=== PATIENT | male | born 1960 | race Caucasian/White ===

== ENCOUNTER 2017-08-25 14:14 | Inpatient (IN) ==
[2017-08-25 14:51] LABS: Bilirubin,Urine Small (Negative); Blood,Urine Negative (Negative); Clarity,Urine Cloudy (Clear); Color,Urine Dark Yellow (Yellow); Glucose,Urine (UA) Normal (Normal); Ketones,Urine Negative (Negative); Leukocyte Esterase,Urine Negative (Negative); Nitrite,Urine Negative (Negative); PH,Urine 5.5 pH Units (5.0-8.0); Protein,Urine 30 mg/dL (Neg-Trace); Specific Gravity,Urine 1.029 (1.010-1.025); Urobilinogen,Urine Normal (Normal)
[2017-08-25 14:53] LABS: Bacteria,Urine None Seen per hpf (None-Few); Hyaline Casts,Urine None Seen per lpf (None-Few); RBC,Urine 15-30 per hpf (0-3); Squamous Epithelial Cell,Urine Many per lpf (None-Few); WBC,Urine 0-3 per hpf (0-3)
[2017-08-25] MEDS ORDERED: *HR* FentaNYL (PF) 100 MCG/2 ML VIAL IVP ONE ×3 (15:24→17:31)
[2017-08-25] MEDS ORDERED: Ondansetron 4 MG/2 ML VIAL IVP PRN ×2 (15:24→18:13)
--- NOTE | 2017-08-25 15:33 | Emergency Department Note ---
Disposition Clinical Impression: Bowel obstruction Qualifiers: Intestinal obstruction type: other intestinal obstruction Intestinal obstruction extent: partial Qualified Code(s): K56.690 - Other partial intestinal obstruction Abdominal pain Qualifiers: Abdominal location: generalized Qualified Code(s): R10.84 - Generalized abdominal pain Disposition: Admitted As Inpatient Condition: Serious Time of Disposition: 18:48 Abdominal Pain HPI - General Chief Complaint: ED Abdominal Pain Stated Complaint: abd pain, constipation Time Seen by Provider: 08/25/17 15:21 Source: patient Nursing Notes Reviewed: Yes Vital Signs Reviewed: Yes - History of Present Illness HPI Narrative: 57-year-old male complains of abdominal pain 6 days secondary to constipation. Patient states his pain is generalized across his abdomen 5/10 currently but was 10/10 and 1 day ago. Patient states he was placed on lactulose 2 days ago by Neelima Jimenez CNP. Since then patient still has not been noted to produce a bowel movement but was passing gas. Patient states last time passing gas was one night ago. Patient states that he has not been able to eat anything in 3 days and is barely tolerating fluid intake. Patient denies nausea and vomiting. Patient denies blood per rectum. Patient states the last time he had a bowel movement that his stool was normal appearing. Pain Scale: 6 - Related Data Home Medications Medication Instructions Recorded Confirmed Atorvastatin Calcium [Lipitor] 80 mg PO HS 07/08/17 08/25/17 Metoprolol [Lopressor] 25 mg PO BID 07/08/17 08/25/17 Aspirin Enteric Coated [Aspirin EC] 81 mg PO DAILY 08/25/17 08/25/17 Lactulose 20 gm PO BID PRN 08/25/17 08/25/17 Nitroglycerin [Nitrostat] 0.4 mg SL Q5M PRN 08/25/17 08/25/17 Previous Rx's Medication Instructions Recorded Clopidogrel [Plavix] 75 mg PO DAILY #15 tablet 07/02/17 Allergies Allergy/AdvReac Type Severity Reaction Status Date / Time No Known Allergies Allergy Verified 08/25/17 14:24 All systems ED: reviewed and negative except as stated. Review of Systems: As Per HPI Constitutional: Denies: fever, chills, weakness Gastrointestinal: Reports: abdominal pain, constipation. Denies: nausea, vomiting, diarrhea Abdominal Pain PMH - Past Medical History Medical history: Reports: coronary artery disease, hyperlipidemia, hypertension , myocardial infarction Male Surgical History: Reports: angioplasty/stent Psychiatric history: Reports: no psych history - Social History Smoking status: Current every day smoker Alcohol use: Reports: occasionally Drug use: Reports: none Physical Exam Vital Signs Temperature 97.6 F 08/25/17 14:22 Pulse Rate 85 08/25/17 14:22 Respiratory Rate 16 08/25/17 14:22 Blood Pressure 151/100 08/25/17 14:22 O2 Sat by Pulse Oximetry 98 08/25/17 14:22 Temperature 97.6 F 08/25/17 14:22 Pulse Rate 85 08/25/17 14:22 Respiratory Rate 16 08/25/17 14:22 Blood Pressure 151/100 08/25/17 14:22 O2 Sat by Pulse Oximetry 98 08/25/17 14:22 Oxygen Delivery Oxygen Delivery Room Air CONSTITUTIONAL: Alert and oriented X3, well-nourished, well appearing, in no apparent distress HEAD: Normocephalic; atraumatic. EYES: PERRL, no scleral icterus. NOSE: The nose is normal in appearance without rhinorrhea RESP: Normal chest excursion with respiration; breath sounds clear and equal bilaterally; no wheezes, rhonchi, or rales CARD: Regular rhythm, without murmurs, rub or gallop ABD: Non-distended; generalized abdominal tenderness to palpation, soft,without rigidity, rebound or guarding, decreased bowel sounds SKIN: Normal for age and race; warm and dry; no apparent lesions - General General appearance: alert, in no apparent distress Course - Reevaluation(s) Reevaluation #1: Patient has decrease in pain after fentanyl IV 25 g. Time: 16:20 - Consultations Consultation #1: Consulted with Dr. To of general surgery who states 2 admit to medicine and he will review the patient's charts and he said whether patient needs to be taken to surgery versus medical management prior to surgery. He also states to pass on to medicine not to consult GI as he will perform the endoscopy. Time: 16:44 Consultation #2: Consult with Dr. Knutson of oncology and updated on patient's Time: 16:52 Vital Signs Temperature 97.6 F 08/25/17 14:22 Pulse Rate 85 08/25/17 14:22 Respiratory Rate 16 08/25/17 14:22 Blood Pressure 151/100 08/25/17 14:22 O2 Sat by Pulse Oximetry 98 08/25/17 14:22 Temperature 97.6 F 08/25/17 14:22 Pulse Rate 85 08/25/17 14:22 Respiratory Rate 18 08/25/17 17:42 Blood Pressure 139/96 08/25/17 17:42 O2 Sat by Pulse Oximetry 98 08/25/17 14:22 Oxygen Delivery Oxygen Delivery Room Air Abdominal Pain - MDM Narrative Medical decision making narrative: Generalized abdominal pain alicia has worsening pain over the past 6 days with inability to have bowel movements. Last time patient passed gas as one night ago. Concerned patient may have a bowel obstruction or volvulus. His labs show a small elevation in white count 12.4, but otherwise clinically unremarkable. Patient has slight elevation due to his pain and discomfort. CT abdomen and pelvis shows obstruction that appears to stem from abdominal neoplasm. I updated patient about the obstruction and possible neoplastic involvement. Patient again is relatively well. Dr. Hope of Gen. surgery has been consulted and updated. Plan is to admit patient to medicine and start patient on Cipro, and Flagyl. Oncology is also been updated and consulted. Patient understands and agrees to treatment and plan for admission and possible surgical intervention. Patient's pain currently under control after another dose of IV fentanyl 50 g. Patient was examined for admission by Dr. Marks the hospitalist in stable condition. - Lab Data Lab results reviewed: Yes I reviewed the patient's lab results. Lab results narrative: Short CBC 08/25/17 Range/Units 15:44 WBC 12.4 H (4.3-11.1) K/mcL Hgb 16.8 (12.9-16.9) g/dL Hct 50.0 (37.5-50.1) % Plt Count 238 (140-400) K/mcL Neutrophils # 10.1 H (1.6-8.9) K/mcL BMP 08/25/17 Range/Units 15:44 Sodium 137 (136-145) mEq/L Potassium 3.6 (3.5-5.1) mEq/L Chloride 103 (98-107) mEq/L Carbon Dioxide 26 (23-29) mEq/L BUN 16 (6-20) mg/dL Creatinine 1.02 (0.70-1.30) mg/dL Glucose 150 H (70-105) mg/dL Calcium 9.3 (8.6-10.3) mg/dL Liver Function 08/25/17 Range/Units 15:44 Total Bilirubin 0.9 (0.3-1.0) mg/dL Direct Bilirubin 0.3 H (0.0-0.2) mg/dL AST 18 (13-39) Units/L ALT 17 (7-52) Units/L Alkaline Phosphatase 141 H (34-104) Units/L Albumin 4.4 (3.5-5.7) g/dL Urine 08/25/17 Range/Units 14:30 Urine Color Dark Yellow (Yellow) Urine Clarity Cloudy A (Clear) Urine pH 5.5 (5.0-8.0) pH Units Ur Specific [place] 1.029 H (1.010-1.025) Urine Protein 30 H (Neg-Trace) mg/dL Urine Glucose (UA) Normal (Normal) mg/dL Result diagrams: 08/25/17 15:44 08/25/17 15:44 Lab Results 08/25/17 08/25/17 08/25/17 Range/Units 14:30 15:44 15:44 WBC 12.4 H (4.3-11.1) K/mcL RBC 5.32 (4.19-5.50) M/mcL Hgb 16.8 (12.9-16.9) g/dL Hct 50.0 (37.5-50.1) % MCV 94.0 (83.0-100.0) fL MCH 31.6 (28.0-33.3) pg MCHC 33.6 (31.6-35.5) g/dL RDW 13.2 (11.5-14.5) % Plt Count 238 (140-400) K/mcL MPV 9.7 (9.4-12.4) fL Immature Gran % 0.4 (0-4) % Seg Neutrophils % 81.8 % Lymphocytes % 10.1 % Monocytes % 7.3 % Eosinophils % 0.2 % Basophils % 0.2 % Neutrophils # 10.1 H (1.6-8.9) K/mcL Lymphocytes # 1.3 (0.6-4.6) K/mcL Monocytes # 0.9 (0.0-1.3) K/mcL Eosinophils # 0.0 (0.0-0.6) K/mcL Basophils # 0.0 (0.0-0.2) K/mcL Sodium 137 (136-145) mEq/L Potassium 3.6 (3.5-5.1) mEq/L Chloride 103 (98-107) mEq/L Carbon Dioxide 26 (23-29) mEq/L BUN 16 (6-20) mg/dL Creatinine 1.02 (0.70-1.30) mg/dL Est GFR ( Amer) > 60 (> 60) Est GFR (Non-Af Amer) > 60 (> 60) BUN/Creatinine Ratio 16 (6-26) Glucose 150 H (70-105) mg/dL Calculated Osmolality 288 (280-300) Lactic Acid (0.5-2.2) mmol/L Calcium 9.3 (8.6-10.3) mg/dL Total Bilirubin 0.9 (0.3-1.0) mg/dL Direct Bilirubin 0.3 H (0.0-0.2) mg/dL Indirect Bilirubin 0.6 (0.0-1.2) mg/dL AST 18 (13-39) Units/L ALT 17 (7-52) Units/L Alkaline Phosphatase 141 H (34-104) Units/L Serum Total Protein 7.5 (6.4-8.9) g/dL Albumin 4.4 (3.5-5.7) g/dL Globulin 3.1 (2.4-3.5) g/dL Albumin/Globulin Ratio 1.4 (1.1-2.2) Lipase 9 L (11-82) Units/L Urine Color Dark Yellow (Yellow) Urine Clarity Cloudy A (Clear) Urine pH 5.5 (5.0-8.0) pH Units Ur Specific [place] 1.029 H (1.010-1.025) Urine Protein 30 H (Neg-Trace) mg/dL Urine Glucose (UA) Normal (Normal) mg/dL Urine Ketones Negative (Negative) mg/dL Urine Blood Negative (Negative) Urine Nitrite Negative (Negative) Urine Bilirubin Small H (Negative) Urine Urobilinogen Normal (Normal) mg/dL Ur Leukocyte Esterase Negative (Negative) Urine Microscopic RBC 15-30 H (0-3) per hpf Urine Microscopic WBC 0-3 (0-3) per hpf Ur Squamous Epith Cells Many H (None-Few) per lpf Urine Bacteria None Seen (None-Few) per hpf Hyaline Casts None Seen (None-Few) per lpf Ur Culture Indicated? NO (NO) 08/25/17 Range/Units 17:24 WBC (4.3-11.1) K/mcL RBC (4.19-5.50) M/mcL Hgb (12.9-16.9) g/dL Hct (37.5-50.1) % MCV (83.0-100.0) fL MCH (28.0-33.3) pg MCHC (31.6-35.5) g/dL RDW (11.5-14.5) % Plt Count (140-400) K/mcL MPV (9.4-12.4) fL Immature Gran % (0-4) % Seg Neutrophils % % Lymphocytes % % Monocytes % % Eosinophils % % Basophils % % Neutrophils # (1.6-8.9) K/mcL Lymphocytes # (0.6-4.6) K/mcL Monocytes # (0.0-1.3) K/mcL Eosinophils # (0.0-0.6) K/mcL Basophils # (0.0-0.2) K/mcL Sodium (136-145) mEq/L Potassium (3.5-5.1) mEq/L Chloride (98-107) mEq/L Carbon Dioxide (23-29) mEq/L BUN (6-20) mg/dL Creatinine (0.70-1.30) mg/dL Est GFR ( Amer) (> 60) Est GFR (Non-Af Amer) (> 60) BUN/Creatinine Ratio (6-26) Glucose (70-105) mg/dL Calculated Osmolality (280-300) Lactic Acid 1.4 (0.5-2.2) mmol/L Calcium (8.6-10.3) mg/dL Total Bilirubin (0.3-1.0) mg/dL Direct Bilirubin (0.0-0.2) mg/dL Indirect Bilirubin (0.0-1.2) mg/dL AST (13-39) Units/L ALT (7-52) Units/L Alkaline Phosphatase (34-104) Units/L Serum Total Protein (6.4-8.9) g/dL Albumin (3.5-5.7) g/dL Globulin (2.4-3.5) g/dL Albumin/Globulin Ratio (1.1-2.2) Lipase (11-82) Units/L Urine Color (Yellow) Urine Clarity (Clear) Urine pH (5.0-8.0) pH Units Ur Specific [place] (1.010-1.025) Urine Protein (Neg-Trace) mg/dL Urine Glucose (UA) (Normal) mg/dL Urine Ketones (Negative) mg/dL Urine Blood (Negative) Urine Nitrite (Negative) Urine Bilirubin (Negative) Urine Urobilinogen (Normal) mg/dL Ur Leukocyte Esterase (Negative) Urine Microscopic RBC (0-3) per hpf Urine Microscopic WBC (0-3) per hpf Ur Squamous Epith Cells (None-Few) per lpf Urine Bacteria (None-Few) per hpf Hyaline Casts (None-Few) per lpf Ur Culture Indicated? (NO) - Radiology Data Radiology results reviewed: Yes I reviewed the patient's radiology results. Abdomen/Pelvis CT 08/25/17 15:51 IMPRESSION: 1. There is approximately 6 cm segment of colon at the rectosigmoid junction demonstrating mural thickening and significant luminal narrowing which is believed to be causing some partial obstruction with generalized proximal colonic distention. . The appearance is worrisome for neoplasm. Endoscopic correlation is advised. 2. Questionably trace amount of free fluid at the inferior tip of the liver. D/ / Omar Borges MD / Omar Borges MD Interpreting Provider: Omar Borges MD
[2017-08-25 16:00] LABS: Basophils % 0.2 %; Eosinophils % 0.2 %; Hemoglobin 16.8 g/dL (12.9-16.9); Immature Granulocytes % 0.4 % (0-4); Lymphocytes # 1.3 K/mcL (0.6-4.6); Lymphocytes % 10.1 %; Mean Corpuscular HGB Conc 33.6 g/dL (31.6-35.5); Mean Corpuscular Hemoglobin 31.6 pg (28.0-33.3); Mean Platelet Volume 9.7 fL (9.4-12.4); Monocytes # 0.9 K/mcL (0.0-1.3); Monocytes % 7.3 %; Neutrophils # 10.1 K/mcL (1.6-8.9); Platelet Count 238 K/mcL (140-400); Red Blood Count 5.32 M/mcL (4.19-5.50); Red Cell Distribution Width 13.2 % (11.5-14.5); Segmented Neutrophils % 81.8 %
--- NOTE | 2017-08-25 16:00 | Emergency Department Note ---
START Narrative - START START: I examined this patient and my medical decision-making was reviewed with the NON DESTRUCTIVE TESTING SCIENTIST/PA/Advanced Practice Nurse/Resident Physician. I agree with the documented findings, disposition and treatment plan as described except to the extent set forth below. ED attending: Patient's emergency medicine resident Dr. Viral Serrano. Please see copy of this note for H&P evaluation and management and ED disposition. We both had independent [id number] time in contact with this patient. Briefly: 57-year-old male recently seen for constipation comes in with abdominal pain and constipation although was able to pass flatus. Abdomen slightly distended but surgically benign. Screening labs abdominopelvic CT are pending. Disposition pending.
[2017-08-25 16:13] LABS: Alanine Aminotransferase 17 Units/L (7-52); Albumin 4.4 g/dL (3.5-5.7); Albumin/Globulin Ratio 1.4 (1.1-2.2); Alkaline Phosphatase 141 Units/L (34-104); Aspartate Amino Transferase 18 Units/L (13-39); BUN/Creatinine Ratio 16 (6-26); Bilirubin,Direct 0.3 mg/dL (0.0-0.2); Bilirubin,Indirect 0.6 mg/dL (0.0-1.2); Bilirubin,Total 0.9 mg/dL (0.3-1.0); Blood Urea Nitrogen 16 mg/dL (6-20); Calcium 9.3 mg/dL (8.6-10.3); Carbon Dioxide 26 mEq/L (23-29); Chloride 103 mEq/L (98-107); Globulin 3.1 g/dL (2.4-3.5); Glucose 150 mg/dL (70-105); Lipase 9 Units/L (11-82); Osmolality,Calculated 288 (280-300); Potassium 3.6 mEq/L (3.5-5.1); Sodium 137 mEq/L (136-145); Total Protein 7.5 g/dL (6.4-8.9); eGFR For African Americans > 60 (> 60); eGFR For Non-African Americans > 60 (> 60)
[2017-08-25] MEDS ORDERED: *HR* FentaNYL (PF) 100 MCG/2 ML VIAL ONE (16:37)
[2017-08-25] MEDS ORDERED: MetroNIDAZOLE 500 MG/100 ML 500 MG/100 ML BAG IVPB ONE (16:46)
[2017-08-25] MEDS ORDERED: 0.9 % Sodium Chloride 1,000 ML IVC ONE (17:08)
[2017-08-25] MEDS ORDERED: *HR* HYDROmorphone (PF) 1 MG/ML SYRINGE IVP ONE (17:34)
[2017-08-25] MEDS ORDERED: *HR* HYDROmorphone 2 MG/ML SYRINGE ONE (17:35)
[2017-08-25] MEDS ORDERED: Nitroglycerin 0.4 MG TAB.SUBL SL PRN (18:04)
[2017-08-25] MEDS ORDERED: Lactulose Oral Soln 20 GM/30 ML UDC PO PRN (18:04)
[2017-08-25] MEDS ORDERED: Naloxone 0.4 MG/ML INJ IVP PRN ×2 (18:05→18:29)
[2017-08-25] MEDS ORDERED: *HR* OxyCODONE Immed Rel 5 MG TABLET PO PRN (18:13)
--- NOTE | 2017-08-25 18:28 | Internal Med History&Physical ---
<Humberto Hines - Last Filed: 08/25/17 19:22> Date of Encounter: 08/25/17 Time of Encounter: 18:22 Assessment and Plan (1) Abdominal pain Current visit: Yes Status: Acute Abdominal pain d/t bowel obstruction. CT abdomen and pelvis reveals a mural wall thickening and significant luminal narrowing at the rectosigmoid junction causing a partial obstruction. There is a concern for neoplasm -Consult surgery- ED physician reports that they spoke with Dr. To who has agreed to see the patient -NG tube placement -NPO -Pain management with SL morphine, and toradol - Qualifiers: Abdominal location: generalized Qualified Code(s): R10.84 - Generalized abdominal pain (2) Bowel obstruction Current visit: Yes Status: Acute see plan above Qualifiers: Intestinal obstruction type: other intestinal obstruction Intestinal obstruction extent: partial Qualified Code(s): K56.690 - Other partial intestinal obstruction (3) Essential hypertension Current visit: Yes Status: Chronic Resume antihypertensives (4) Mixed hyperlipidemia Current visit: Yes Status: Chronic Continue statin (5) Tobacco abuse Current visit: Yes Status: Chronic (6) DVT prophylaxis Current visit: Yes Status: Acute Heparin 5000 units SC BID Internal Medicine - H&P: HPI Chief complaint: ABDOMINAL PAIN Admitted From: Home Plans for Post Hospital Care: Home History of present illness: Mr. Bedolla is a 57 year old male with a PMH of CAD, HTN, HLD, MO, who presents to [facility] today with complaint of abdominal pain and constipation for the last 6 days. He reports the pain is generalized and is currently 10/10 and crampy in nature. He states that he saw his primary care provider 2 days ago and was given lactulose but he is yet to have a bowel movement. The report from the ED indicates the patient was still passing gas however he reports he is not been passing gas since this morning. Additionally , he reports a decrease in oral intake including both food and fluid. He denies any fever, chills, weight loss, chest pain, shortness of breath, change in bowel pattern, hematemesis, hematochezia or melena.. He admits to night sweats for the last 2-days, abdominal pain, nausea and a change in bowel function. He states that he has not had any changes on stool size. CT A/P reveals mural thickenins and significant luminal narrowing at the rectosigmoid junction with partial bowel obstruction concerning for neoplasm. Past Med Surg Social Fam HX - Past Medical History Medical history: coronary artery disease, hyperlipidemia, hypertension, myocardial infarction Psychiatric history: no psych history - Social History Smoking Status: Current every day smoker Smokeless Tobacco Status: No Alcohol use: occasionally Drug use: none - Additional Family History Additional family history: Noncontributory Internal Medicine - H&P: Meds Clopidogrel [Plavix] 75 mg PO DAILY #15 tablet 07/02/17 [Rx] Atorvastatin Calcium [Lipitor] 80 mg PO HS 07/08/17 [History] Metoprolol [Lopressor] 25 mg PO BID 07/08/17 [History] Aspirin Enteric Coated [Aspirin EC] 81 mg PO DAILY 08/25/17 [History] Lactulose 20 gm PO BID PRN 08/25/17 [History] Nitroglycerin [Nitrostat] 0.4 mg SL Q5M PRN 08/25/17 [History] 3 Allergy/AdvReac Type Severity Reaction Status Date / Time No Known Allergies Allergy Verified 08/25/17 14:24 All Systems PM: A 10-system review of systems was performed and is negative for pertinent findings except as documented above in the HPI. - Constitutional Constitutional: as per HPI - Cardiovascular Cardiovascular ROS IM: no chest pain, no diaphoresis, no dyspnea, no lightheadedness, no palpitations, no syncope - Respiratory Respiratory: no cough, no dyspnea, no wheezing, no excessive phlegm production - Gastrointestinal Gastrointestinal: as per HPI, abdominal pain, constipation, cramping, early satiety, nausea, no change in bowel habits, no change in stool character, no coffee ground emesis, no hematemesis, no hematochezia, no melena, no vomiting Additional comments: Abdominal distention - Genitourinary Genitourinary ROS male: no difficulty urinating, no dysuria, no flank pain, no hematuria - Musculoskeletal Musculoskeletal ROS IM: no numbness, no tingling - Integumentary Integumentary IM: no rash, no unusual bruising - Neurological Neurological ROS: no confusion, no convulsions, no focal weakness, no numbness, no tingling, no tremor(s) - Constitutional Vitals: Temp Pulse Resp BP Pulse Ox 97.6 F 85 18 139/96 98 08/25/17 14:22 02/08/18 14:22 08/25/17 17:42 08/25/17 17:42 08/25/17 14:22 General appearance: Present: cooperative, mild distress, A&O X 3, answers questions appropriately - Head Head exam: Present: atraumatic, normocephalic - Eye Eye exam: Present: PERRL, conjuntiva pink, sclera anicteric Pupils: Present: PERRL - Neck Neck exam general surgery: Present: supple, trachea midline. Absent: lymphadenopathy - Respiratory Respiratory exam: Present: CTAB. Absent: accessory muscle use, rales, rhonchi, wheezes - Cardiovascular Cardiovascular exam: Present: RRR, +S1, +S2. Absent: diastolic murmur, gallop, rubs, systolic murmur - GI/Abdominal GI/Abdominal exam: Present: distended, firm, hypoactive bowel sounds, tenderness. Absent: guarding, mass, pulsatile mass, soft, splenomegaly - Extremities Exam Extremities exam: Present: warm, radial pulses palpable and symmetrical. Absent : calf tenderness, cyanotic, pedal edema - Neurological Exam Neurological exam: Present: CN II-XII intact, oriented X3, no focal deficits. Absent: pronater drift, facial droop, speech deficit - Skin Skin exam: Present: dry, intact Internal Med - H&P Results - Labs CBC & Chem 7: 08/25/17 15:44 08/25/17 15:44 - Impressions Impressions Abdomen/Pelvis CT 08/25/17 15:51 IMPRESSION: 1. There is approximately 6 cm segment of colon at the rectosigmoid junction demonstrating mural thickening and significant luminal narrowing which is believed to be causing some partial obstruction with generalized proximal colonic distention. . The appearance is worrisome for neoplasm. Endoscopic correlation is advised. 2. Questionably trace amount of free fluid at the inferior tip of the liver. D/ / Omar Borges MD / Omar Borges MD Interpreting Provider: Omar Borges MD <Christiano Marks T - Last Filed: 08/25/17 20:15> Date of Encounter: 08/25/17 Internal Medicine - H&P: HPI History of present illness: Mr. Bedolla is a 57 year old male All Systems PM: A 10-system review of systems was performed and is negative for pertinent findings except as documented above in the HPI. - Constitutional Vitals: Temp Pulse Resp BP Pulse Ox 97.5 F L 75 14 165/92 95 08/25/17 19:31 08/25/17 19:31 08/25/17 19:31 08/25/17 19:31 08/25/17 19:31 Internal Med - H&P Results - Labs CBC & Chem 7: 08/25/17 15:44 08/25/17 15:44 - Impressions ITS Impressions KUB X-Ray 08/25/17 19:01 IMPRESSION: Although the nasogastric tube tip is superimposed over the gastric body, the soft a port is seen superimposed proximal to the gastroesophageal junction. Consequently, the tube should be advanced for more optimal placement. D/ / Michael Puentes MD / Michael Puentes MD Interpreting Provider: Michael Puentes MD - Attending Attestation The patient was independently examined and his available records, imaging, and labs were reviewed. Agree with the VICE PRESIDENT PAYMENT's A&P. His pain is not well controlled and we will give Dilaudid or Morphine because he is NPO and in terrible pain. No longer passing flatus now. He has not had a BM in days. Gen Surg. consulted. NGT in place.
[2017-08-25] MEDS: 0.9 % Sodium Chloride 1,000 ML IVC SCH (21:39)
[2017-08-25] MEDS: MORPHINE SUL Oral CONC 10 MG/0.5 ML ORAL.SYG SL PRN (21:39)
[2017-08-26] MEDS: *HR* Metoprolol 5 MG/5 ML VIAL IVP SCH ×3 (00:08→17:42)
[2017-08-26] MEDS: Ketorolac 15 MG/ML VIAL IVP PRN ×2 (00:08→06:14)
[2017-08-26] MEDS: MORPHINE SUL Oral CONC 10 MG/0.5 ML ORAL.SYG SL PRN (02:58)
[2017-08-26 05:17] LABS: Basophils % 0.2 %; Eosinophils % 0.3 %; Hematocrit 45.9 % (37.5-50.1); Hemoglobin 15.6 g/dL (12.9-16.9); Immature Granulocytes % 0.3 % (0-4); Lymphocytes # 1.7 K/mcL (0.6-4.6); Lymphocytes % 15.3 %; Mean Corpuscular Hemoglobin 31.6 pg (28.0-33.3); Mean Corpuscular Volume 93.1 fL (83.0-100.0); Monocytes # 1.2 K/mcL (0.0-1.3); Monocytes % 10.4 %; Neutrophils # 8.2 K/mcL (1.6-8.9); Platelet Count 222 K/mcL (140-400); Red Blood Count 4.93 M/mcL (4.19-5.50); Red Cell Distribution Width 13.2 % (11.5-14.5); Segmented Neutrophils % 73.5 %
[2017-08-26 05:59] LABS: Alanine Aminotransferase 15 Units/L (7-52); Albumin 3.6 g/dL (3.5-5.7); Albumin/Globulin Ratio 1.4 (1.1-2.2); Alkaline Phosphatase 116 Units/L (34-104); Aspartate Amino Transferase 16 Units/L (13-39); BUN/Creatinine Ratio 17 (6-26); Bilirubin,Total 0.8 mg/dL (0.3-1.0); Blood Urea Nitrogen 15 mg/dL (6-20); Calcium 8.4 mg/dL (8.6-10.3); Carbon Dioxide 24 mEq/L (23-29); Chloride 107 mEq/L (98-107); Globulin 2.6 g/dL (2.4-3.5); Glucose 109 mg/dL (70-105); Osmolality,Calculated 287 (280-300); Potassium 3.7 mEq/L (3.5-5.1); Sodium 138 mEq/L (136-145); Total Protein 6.2 g/dL (6.4-8.9); eGFR For African Americans > 60 (> 60); eGFR For Non-African Americans > 60 (> 60)
[2017-08-26] MEDS: 0.9 % Sodium Chloride 1,000 ML IVC SCH ×2 (06:15→15:54)
[2017-08-26] MEDS: *HR* Heparin 5,000 UNIT/ML VIAL SQ SCH ×2 (06:15→16:52)
[2017-08-26] MEDS ORDERED: Aspirin Enteric Coated 81 MG Tablet PO SCH (09:00)
[2017-08-26 09:36] LABS: Bilirubin,Urine Moderate (Negative); Blood,Urine Negative (Negative); Clarity,Urine Clear (Clear); Glucose,Urine (UA) Normal (Normal); Ketones,Urine Trace mg/dL (Negative); Leukocyte Esterase,Urine Small (Negative); Nitrite,Urine Positive (Negative); PH,Urine 5.5 pH Units (5.0-8.0); Protein,Urine 30 mg/dL (Neg-Trace); Specific Gravity,Urine > 1.030 (1.010-1.025); Urobilinogen,Urine Normal (Normal)
[2017-08-26 09:39] LABS: Bacteria,Urine None Seen per hpf (None-Few); Color,Urine Amber (Yellow); Hyaline Casts,Urine None Seen per lpf (None-Few); Squamous Epithelial Cell,Urine Few per lpf (None-Few); WBC,Urine 0-3 per hpf (0-3)
[2017-08-26 09:54] LABS: Calcium Oxalate Crystals,Urine Present
[2017-08-26] MEDS ORDERED: *HR* FentaNYL (PF) 100 MCG/2 ML VIAL IVP PRN (10:25)
--- NOTE | 2017-08-26 10:50 | Internal Med Progress Note ---
<Zuleika Carlos - Last Filed: 08/26/17 14:39> Date of Encounter: 08/26/17 Time of Encounter: 10:20 - Assessment and plan (1) Bowel obstruction Current Visit: Yes Status: Acute Assessment and plan: Obstructing mass in rectosigmoid concerning for neoplastic process. Patient reports that he was having constipation for the past week with increased abdominal pain and distention. Abd CT- demonstrating 6 cm segment of colon at the rectosigmoid demonstrating mural thickening and significant luminal narrowing believed to be causing some partial obstruction with generalized proximal colonic distention. Appearance concerning for neoplasm. Afebrile, hemodynamically stable, WBC 11.1 Patient is acutely distressed due to severe abdominal pain. He denies passing gas or bowel movements since his admission. Physical exam of the abdomen demonstrated distended, diffusely tender, guarding , hypoactive bowel sounds. No rebound. Plan -surgery consulted and taking the patient to surgery [facility] -NPO -fentanyl PRN severe pain and SL oxycodone moderate pain -NG tube placed -oncology consulted, recommendations appreciated Qualifiers: Intestinal obstruction type: other intestinal obstruction Intestinal obstruction extent: partial Qualified Code(s): K56.690 - Other partial intestinal obstruction (2) UTI (urinary tract infection) Current Visit: Yes Status: Acute Assessment and plan: Asymptomatic UTI demonstrated by urinalysis U/A: + nitrite, leukocyte esterase, protein, Yoana in color plan start ceftriaxone IV urine culture pending Qualifiers: Qualified Code(s): N39.0 - Urinary tract infection, site not specified (3) CAD (coronary artery disease) Current Visit: Yes Status: Acute Assessment and plan: s/p PCI 7 years ago. He has PAD with a LLE stent placed 2 months ago, he is on Plavix for that. Patient denies chest pain, palpitations, diaphoresis. EKG does not show ST changes. Qualifiers: Qualified Code(s): I25.10 - Atherosclerotic heart disease of tejon coronary artery without angina pectoris (4) Mixed hyperlipidemia Current Visit: Yes Status: Chronic Assessment and plan: History of hyperlipidemia. Holding home Plavix and atorvastatin patient is NPO due to surgery (5) Essential hypertension Current Visit: Yes Status: Chronic Assessment and plan: History of hypertension IV hydralazine for elevated BP due to patient is NPO for surgery holding home metoprolol, aspirin (6) Tobacco abuse Current Visit: Yes Status: Chronic Assessment and plan: He has a current smoker (7) DVT prophylaxis Current Visit: Yes Status: Acute Assessment and plan: EPCD - Subjective Interval history: Laying down uncomfortable in bed and mild acute distress. He is alert and oriented times 3 and is alongside his and daughter. He reports continued sharp abdominal pain. Denies passing gas or bowel movement. Denies fever, chills, chest pain, shortness of breath. - Constitutional Vitals: Temp Pulse Resp BP Pulse Ox 97.7 F 87 16 160/96 95 08/26/17 10:11 08/26/17 10:11 08/26/17 10:11 08/26/17 10:11 08/26/17 10:11 General appearance: Present: cooperative, mild distress, A&O X 3, answers questions appropriately Exam: Gen.: Vitals noted. No acute distress. AAOx3 HEENT: oropharynx clear, Normocephalic, atraumatic Cardiac: RRR, no murmur, +S1/S2 Pulmonary: CTA bilaterally, no wheezes, rales or rhonchi, equal chest expansion Abdomen: distended, diffusely tender, no Bowel sounds noted, positive guarding, no rebound MSK: no joint swelling noted Extremities: no BLE edema, nontender calf, no cyanosis or clubbing Neuro: A&Ox3, moves all extremities, no focal deficits Psych: Appropriate mood and behavior Internal Medicine: Result - Labs CBC & Chem 7: 08/26/17 03:53 08/26/17 03:53 Labs: Short CBC 08/26/17 Range/Units 03:53 WBC 11.1 (4.3-11.1) K/mcL Hgb 15.6 (12.9-16.9) g/dL Hct 45.9 (37.5-50.1) % Plt Count 222 (140-400) K/mcL Neutrophils # 8.2 (1.6-8.9) K/mcL BMP 08/26/17 03:53 Sodium 138 Potassium 3.7 Chloride 107 Carbon Dioxide 24 BUN 15 Creatinine 0.86 Glucose 109 H Calcium 8.4 L Liver Function 08/26/17 Range/Units 03:53 Total Bilirubin 0.8 (0.3-1.0) mg/dL AST 16 (13-39) Units/L ALT 15 (7-52) Units/L Alkaline Phosphatase 116 H (34-104) Units/L Albumin 3.6 (3.5-5.7) g/dL Urine 08/26/17 Range/Units 09:04 Urine Color Yoana A (Yellow) Urine Clarity Clear (Clear) Urine pH 5.5 (5.0-8.0) pH Units Ur Specific [place] > 1.030 H (1.010-1.025) Urine Protein 30 H (Neg-Trace) mg/dL Urine Glucose (UA) Normal (Normal) mg/dL Consult Discharge Plan - Plan Referrals: Purnima Ordaz, DIGITAL FORENSICS INVESTIGATOR [Primary Care Provider] - <Alfa Johnston T - Last Filed: 08/26/17 15:10> Date of Encounter: 08/26/17 - Constitutional Vitals: Temp Pulse Resp BP Pulse Ox 97.5 F L 83 16 168/103 96 08/26/17 11:43 08/26/17 11:43 08/26/17 11:43 08/26/17 11:43 08/26/17 11:43 Internal Medicine: Result - Labs CBC & Chem 7: 08/26/17 03:53 08/26/17 03:53 Labs: Short CBC 08/26/17 Range/Units 03:53 WBC 11.1 (4.3-11.1) K/mcL Hgb 15.6 (12.9-16.9) g/dL Hct 45.9 (37.5-50.1) % Plt Count 222 (140-400) K/mcL Neutrophils # 8.2 (1.6-8.9) K/mcL BMP 08/26/17 03:53 Sodium 138 Potassium 3.7 Chloride 107 Carbon Dioxide 24 BUN 15 Creatinine 0.86 Glucose 109 H Calcium 8.4 L Liver Function 08/26/17 Range/Units 03:53 Total Bilirubin 0.8 (0.3-1.0) mg/dL AST 16 (13-39) Units/L ALT 15 (7-52) Units/L Alkaline Phosphatase 116 H (34-104) Units/L Albumin 3.6 (3.5-5.7) g/dL Urine 08/26/17 Range/Units 09:04 Urine Color Yoana A (Yellow) Urine Clarity Clear (Clear) Urine pH 5.5 (5.0-8.0) pH Units Ur Specific [place] > 1.030 H (1.010-1.025) Urine Protein 30 H (Neg-Trace) mg/dL Urine Glucose (UA) Normal (Normal) mg/dL - Attending Attestation Agree with plan, see my event note for same day] Repeat UA done compared to yesterday's has nitrites and sent for culture, start ceftriaxone , follow cultures Rest of details as in my event note and resident physician's documentation
[2017-08-26] MEDS ORDERED: OXYCODONE Oral CONC 10 MG/0.5 ML ORAL.SYG SL PRN ×2 (11:21→12:28)
--- NOTE | 2017-08-26 12:28 | Event Note ---
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 Prior to his abdominal symptoms, he had no chest pain, difficulty breathing, cough, leg edema, or palpitation. His EKG per chart is sinus. He has been exposed to anesthesia before without side effects He has no known allergies to medications He is a current smoker On examination, he is in severe painful distress, able to communicate. Abdomen is distended, and generally tender, he has guarding, but no rebound. Bowel sounds are present in the RLQ and hyperactive. Absent brerath sounds anywhere else. He has no pedal edema His chest is CTAB HS S1, S2 only, no m/g/r. He is AAOX3, moves all extremities and has no neurologic deficits Labs and Imaging reviewed, unremarkable A/P Bowel obstruction HTN HLD CAD Patient is low risk (based on RCRI and ANTIONE score) for high risk major surgery There is no indication for further cardiac testing for an asymptomatic patient with need for urgent surgery Surgery has been contacted and is pending review at my time of evaluation Place NG drainage to continuous suction IV hydralazine for blood pressure Pain control Plan of care discussed with patient and his family members who verbalize understanding Rest of details is as in the resident physicina's documentation
--- NOTE | 2017-08-26 12:34 | Oncology Inp Consult Note ---
<Felicitas Marina L - Last Filed: 08/26/17 14:07> Date of Encounter: 08/26/17 Time of Encounter: 11:30 Assessment and Plan (1) Bowel obstruction Status: Acute Assessment and plan: Dr. Knutson discussed radiographic findings as detailed above which are highly concerning for malignancy, with definitive diagnosis pending final pathology results. Path results and treatment options, if found malignant, will be discussed when available following surgery and staging work up. He is planned for surgical intervention later tonight with a planned Robert procedure and descending end colostomy which will be created on the anterior abdominal wall. Colostomy will be considered potentially reversible in 4-6 months but will depend on his final diagnosis and treatment course. CEA has been ordered. Oncology will continue to follow patient during admission and watch for pathology report results. Will work to arrange continued follow up with medical oncology following his discharge. Please refer to Dr. Knutson's attestation below for further details. Qualifiers: Intestinal obstruction type: other intestinal obstruction Intestinal obstruction extent: partial Qualified Code(s): K56.690 - Other partial intestinal obstruction - Data of Consult Patient: new to practice Consult date: 08/26/17 Requesting Physician: Alfa Johnston MD Primary Care Provider: Purnima Ordaz CNP - Consult Narrative Reason for consult: CT findings concerning for colon malignancy History of present illness: Mr. Bedolla is a 57 year old male with past medical history significant for CAD, HTN, HLD and IA who presented to [facility] with complaint of worsening abdominal pain described as severe cramping, nausea and chills for the past week. He has had an associated decreased in intake during this time. He denies fever, chills , recent weight loss, hematochezia, hematemesis or melena. CT Abdomen/Pelvis shows 6 cm segment of colon at the rectosigmoid junction demonstrating mural thickening and significant luminal narrowing which is believed to be causing some partial obstruction with generalized proximal colonic distention. The appearance is worrisome for neoplasm. Mr. Bedolla is a current everyday smoker [id number] years, he partakes in occasional alcohol use. 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 Family history of cancer includes his sister who is currently receiving treatment for pancreatic cancer and his father of lung cancer. Past Med Surg Social Fam HX - Past Medical History Medical history: coronary artery disease, hyperlipidemia, hypertension, myocardial infarction Psychiatric history: no psych history - Social History Smoking Status: Current every day smoker Smokeless Tobacco Status: No Alcohol use: occasionally Drug use: none Medications and Allergies Clopidogrel [Plavix] 75 mg PO DAILY #15 tablet 07/02/17 [Rx] Atorvastatin Calcium [Lipitor] 80 mg PO HS 07/08/17 [History] Metoprolol [Lopressor] 25 mg PO BID 07/08/17 [History] Aspirin Enteric Coated [Aspirin EC] 81 mg PO DAILY 08/25/17 [History] Lactulose 20 gm PO BID PRN 08/25/17 [History] Nitroglycerin [Nitrostat] 0.4 mg SL Q5M PRN 08/25/17 [History] levoFLOXacin [Levaquin] 750 mg PO DAILY 10 Days #10 tablet 09/03/17 [Rx] 3 Allergy/AdvReac Type Severity Reaction Status Date / Time No Known Allergies Allergy Verified 08/25/17 14:24 Constitutional: Present: malaise. Absent: chills, fever(s), weight loss Eyes: Absent: change in vision Nose, mouth and throat: Absent: mouth lesions Cardiovascular: Absent: chest pain, irregular heart rhythm, palpitations Respiratory: Absent: cough, dyspnea Gastrointestinal: Present: abdominal pain, bloating, change in bowel habits, constipation, nausea. Absent: hematemesis, hematochezia, melena, vomiting Additional comments: denies dysuria Musculoskeletal: Present: muscle weakness Integumentary: Absent: skin ulcer, wounds Neurological: Absent: numbness, syncope, tingling Hematologic/Lymphatic: Absent: easy bleeding Oncology - Exam - Constitutional Vitals: Temp Pulse Resp BP Pulse Ox 97.5 F L 83 16 168/103 96 08/26/17 11:43 08/26/17 11:43 08/26/17 11:43 08/26/17 11:43 08/26/17 11:43 General appearance: cooperative, no febrile Exam: Mr Bedolla is non toxic appearing however appears to be in pain and quite uncomfortable - Head Head exam: Present: atraumatic - Respiratory Respiratory exam: Present: CTAB - Cardiovascular Cardiovascular exam: Present: RRR, +S1, +S2 - GI/Abdominal GI/Abdominal exam: Present: distended, hypoactive bowel sounds, tenderness - Extremities Exam Extremities exam: Present: normal inspection. Absent: calf tenderness - Neurological Exam Neurological exam: Present: alert, oriented X3, no focal deficits, strengths equal and symetr throughout - Psychiatric Psychiatric exam: Present: anxious - Skin Skin exam: Present: normal color, warm Oncology - Results Labs: Short CBC 08/26/17 Range/Units 03:53 WBC 11.1 (4.3-11.1) K/mcL Hgb 15.6 (12.9-16.9) g/dL Hct 45.9 (37.5-50.1) % Plt Count 222 (140-400) K/mcL Neutrophils # 8.2 (1.6-8.9) K/mcL BMP 08/26/17 03:53 Sodium 138 Potassium 3.7 Chloride 107 Carbon Dioxide 24 BUN 15 Creatinine 0.86 Glucose 109 H Calcium 8.4 L Liver Function 08/26/17 Range/Units 03:53 Total Bilirubin 0.8 (0.3-1.0) mg/dL AST 16 (13-39) Units/L ALT 15 (7-52) Units/L Alkaline Phosphatase 116 H (34-104) Units/L Albumin 3.6 (3.5-5.7) g/dL Urine 08/26/17 Range/Units 09:04 Urine Color Yoana A (Yellow) Urine Clarity Clear (Clear) Urine pH 5.5 (5.0-8.0) pH Units Ur Specific [place] > 1.030 H (1.010-1.025) Urine Protein 30 H (Neg-Trace) mg/dL Urine Glucose (UA) Normal (Normal) mg/dL Consult Discharge Plan - Plan Instructions: Levofloxacin (By mouth), Colostomy Care (DC) Referrals: Viet To MD [Non-Partnered Physician] - (Call office on Tuesday to schedule follow up appointment.) Prescriptions: levoFLOXacin [Levaquin] 750 mg PO DAILY 10 Days #10 tablet <Sadi Knutson - Last Filed: 09/05/17 08:16> Date of Encounter: 08/26/17 - Data of Consult Requesting Physician: Alfa Johnston MD Primary Care Provider: Purnima Ordaz CNP - Consult Narrative History of present illness: Mr. Bedolla is a 57 year old male Oncology - Exam - Constitutional Vitals: Temp Pulse Resp BP Pulse Ox 97.8 F 99 20 132/85 96 09/03/17 06:53 09/03/17 06:53 09/03/17 06:53 09/03/17 06:53 09/03/17 06:53 - Attending Attestation Seen and examined patient and agree with findings and plan. He has bowel obstruction from likely neoplasm. He will need urgent surgical intervention. Based on the results of the surgical specimen we will then have a better idea of what may need to be done from an oncologic standpoint.
--- NOTE | 2017-08-26 12:46 | General Surgery Consult Note ---
Date of Encounter: 08/26/17 Time of Encounter: 12:20 History of Present Illness Consult date: 08/25/17 Reason for consult: other (obstructing colon mass) Requesting physician: Viral Serrano History of present illness: 57-year-old referred for further evaluation and possible treatment of progressive abdominal pain, distention with radiologic evidence of an obstructing colon mass at the level of the rectosigmoid. The patient presented to the emergency department last evening with us in approximately 1 week history of generalized abdominal pain and inability to move his bowels approximately the past 6 days. The patient was seen by his PCP and prescribed lactulose without significant improvement. The patient describes passing flatus but no BM. Spite the symptoms he denies nausea and/or vomiting but describes significant anorexia significant decrease in oral intake including food and fluids. CT of the abdomen/pelvis completed without contrast showed generalized gaseous distention of the colon with relative market luminal narrowing involving a 6 cm segment at the rectosigmoid junction. This is accompanied by a circumferential mural soft tissue thickening with shouldering worrisome for a neoplastic process. Some visible but subcentimeter lymph nodes are evident in the mesentery. This CT was personally reviewed with [facility] prior to my encounter with the patient. Past medical history: Coronary disease with history of MO approximate 7 years ago; status post currently artery stenting. Peripheral vascular disease status post stenting of the right lower extremity. He also has a history of hypertension and hyperlipidemia. Surgical history: Coronary and peripheral vascular stenting as noted Allergies: No known drug allergies Medications: Aspirin 81 mg by mouth daily Clopidogrel 75 mg by mouth daily Metoprolol 25 mg by mouth twice a day Lactulose 20 g by mouth twice a day as needed for constipation (recently prescribed) Nitroglycerin 0.4 mg sublingually every 5 minutes as needed for chest pain - the patient denies any episodes of chest pain in the recent past Social history: Patient is , lives at home with his spouse; he is a smoker admitting to 1 pack daily for the last 40 years; he also enjoys whiskey 1 -2 times monthly; he denies any illicit drug use Family history: Noncontributory Physical examination: Age-appropriate male in distress secondary to his cramping abdominal pain. He is 1.7 m tall, 83.92 kg, BMI 29.0. The patient has been afebrile since admission, most recently 97.5, pulse 83, respirations 16, blood pressure 168/103 - slightly elevated due to his discomfort NG is in place draining a small amount of dark green bilious fluid Skin: Warm, obvious jaundice Lungs: Clear; no obvious pain on deep inspiration Cardiac: Regular rate, no appreciable murmurs Abdomen: Tensely distended and tympanitic; tenderness in the left lower quadrant. The distention limits the exam with no palpable intra-abdominal masses. No obvious rebound. Hypoactive bowel sounds. Rectal: Enlarged firm prostate; dark brown stool; the mass described on CT is not palpable. Laboratories: Current white count 11.1 with resolution of the presenting leukocytosis of 12.4; hemoglobin 15.6, hematocrit 45.9. Neutrophilia on admission 10.1% resolved on repeat, 8.2; remainder of the differential is unremarkable Electrolytes, BUN, creatinine within normal limits AST 16, ALT 15, alkaline phosphatase on presentation 141, repeat today 116 CEA has been ordered and is pending Urinalysis notable for pH 5.5, specific gravity greater than 1.030; protein 30, ketones trace, urine nitrate positive, urobilinogen moderate. 5-15 RBC/hpf; 0-3 WBC/hpf Impression: 57-year-old male admitted after presenting to they [facility] with progressive abdominal pain,distention and difficulty moving his bowels. There is radiologic evidence of an obstructing mass at the rectosigmoid highly concerning for neoplastic process. I discussed my clinical findings as well as the radiologic findings with the patient and his . The patient is in distress with recurrent crampy abdominal pain unrelieved by placement of an NG tube or intermittent administration of IV narcotic analgesics. Surgery is recommended and will be arranged [facility]. There is significant size disparity from the caliber of the colon proximal to the obstructing mass to that distal. This has prompted me to recommend a Robert procedure. I have discussed this in detail and this will entail a midline abdominal incision with removal of the segment of colon containing the obstructing mass. A descending end colostomy will be created on the anterior abdominal wall. This would be potentially reversible in 4-6 months depending on the patient's ultimate diagnosis and response to treatment. Risks of surgery include hemorrhage, infection, intra- abdominal abscess, injury to adjacent structures such as bladder, bowel, and ureters. There is also a risk of respiratory failure/pneumonia and cardiac risks such as dysrhythmia and MO. The patient and his have expressed understanding. Surgical consent has been obtained. Past Med Surg Social Fam HX - Past Medical History Medical history: coronary artery disease, hyperlipidemia, hypertension, myocardial infarction Psychiatric history: no psych history - Social History Smoking Status: Current every day smoker Smokeless Tobacco Status: No Alcohol use: occasionally Drug use: none Medications and Allergies Clopidogrel [Plavix] 75 mg PO DAILY #15 tablet 07/02/17 [Rx] Atorvastatin Calcium [Lipitor] 80 mg PO HS 07/08/17 [History] Metoprolol [Lopressor] 25 mg PO BID 07/08/17 [History] Aspirin Enteric Coated [Aspirin EC] 81 mg PO DAILY 08/25/17 [History] Lactulose 20 gm PO BID PRN 08/25/17 [History] Nitroglycerin [Nitrostat] 0.4 mg SL Q5M PRN 08/25/17 [History] 3 Allergy/AdvReac Type Severity Reaction Status Date / Time No Known Allergies Allergy Verified 08/25/17 14:24 Review of Systems All systems PM: A 10-system review of systems was performed and is negative for pertinent findings except as documented above in the HPI. General Surgery Exam Initial Vital Signs Temp Pulse Resp BP Pulse Ox 97.6 F 85 16 151/100 98 08/25/17 14:22 08/25/17 14:22 08/25/17 14:22 08/25/17 14:22 08/25/17 14:22 Exam Initial Vital Signs Temp Pulse Resp BP Pulse Ox 97.6 F 85 16 151/100 98 08/25/17 14:22 08/25/17 14:22 08/25/17 14:22 08/25/17 14:22 08/25/17 14:22 Results - Labs 08/26/17 03:53 08/26/17 03:53 Abnormal lab results Glucose 109 mg/dL (70-105) H 08/26/17 03:53 POC Glucose 122 (58-89) H 08/26/17 11:41 Calcium 8.4 mg/dL (8.6-10.3) L 08/26/17 03:53 Direct Bilirubin 0.3 mg/dL (0.0-0.2) H 08/25/17 15:44 Alkaline Phosphatase 116 Units/L (34-104) H 08/26/17 03:53 Serum Total Protein 6.2 g/dL (6.4-8.9) L 08/26/17 03:53 Lipase 9 Units/L (11-82) L 08/25/17 15:44 Urine Color Yoana (Yellow) A 08/26/17 09:04 Ur Specific [place] > 1.030 (1.010-1.025) H 08/26/17 09:04 Urine Protein 30 mg/dL (Neg-Trace) H 08/26/17 09:04 Urine Ketones Trace mg/dL (Negative) H 08/26/17 09:04 Urine Nitrite Positive (Negative) A 08/26/17 09:04 Urine Bilirubin Moderate (Negative) H 08/26/17 09:04 Ur Leukocyte Esterase Small (Negative) H 08/26/17 09:04 Urine Microscopic RBC 5-15 per hpf (0-3) H 08/26/17 09:04 Ur Culture Indicated? YES (NO) A 08/26/17 09:04 Diabetes panel 08/26/17 Range/Units 03:53 Sodium 138 (136-145) mEq/L Potassium 3.7 (3.5-5.1) mEq/L Chloride 107 (98-107) mEq/L Carbon Dioxide 24 (23-29) mEq/L BUN 15 (6-20) mg/dL Creatinine 0.86 (0.70-1.30) mg/dL Glucose 109 H (70-105) mg/dL Calcium 8.4 L (8.6-10.3) mg/dL AST 16 (13-39) Units/L ALT 15 (7-52) Units/L Alkaline Phosphatase 116 H (34-104) Units/L Albumin 3.6 (3.5-5.7) g/dL Calcium panel 08/26/17 Range/Units 03:53 Calcium 8.4 L (8.6-10.3) mg/dL Albumin 3.6 (3.5-5.7) g/dL Pituitary panel 08/26/17 Range/Units 03:53 Sodium 138 (136-145) mEq/L Potassium 3.7 (3.5-5.1) mEq/L Chloride 107 (98-107) mEq/L Carbon Dioxide 24 (23-29) mEq/L BUN 15 (6-20) mg/dL Creatinine 0.86 (0.70-1.30) mg/dL Glucose 109 H (70-105) mg/dL Calcium 8.4 L (8.6-10.3) mg/dL Adrenal panel 08/26/17 Range/Units 03:53 Sodium 138 (136-145) mEq/L Potassium 3.7 (3.5-5.1) mEq/L Chloride 107 (98-107) mEq/L Carbon Dioxide 24 (23-29) mEq/L BUN 15 (6-20) mg/dL Creatinine 0.86 (0.70-1.30) mg/dL Glucose 109 H (70-105) mg/dL Calcium 8.4 L (8.6-10.3) mg/dL Total Bilirubin 0.8 (0.3-1.0) mg/dL AST 16 (13-39) Units/L ALT 15 (7-52) Units/L Alkaline Phosphatase 116 H (34-104) Units/L Albumin 3.6 (3.5-5.7) g/dL All other labs normal. Consult Discharge Plan - Plan Referrals: Purnima Ordaz, APPRENTICE COSMETOLOGIST [Primary Care Provider] -
[2017-08-26] MEDS: *HR* FentaNYL (PF) 100 MCG/2 ML VIAL IVP PRN ×3 (13:55→19:49)
--- NOTE | 2017-08-26 15:55 | Anesthesia Evaluation PreOp ---
Date of Encounter: 08/26/17 Time of Encounter: 16:02 - Past History Planned Operation: Sigmoid Colectomy/Robert's Procedure re: bowel obstr Cardiac History: IA, HTN (maintained on Lopressor), Hyperlipidemia (maintained on Atorvastatin), Cardiac Stent (Recent 06/2017 Peripheral drug eluting stent placed at [facility]. - 06/2017 Impressions: The Abdominal aorta is normal in appearance and free of obstructive disease. The bilateral renal have non- significant disease. The Left Common Iliac, Right Common Iliac, Left External Iliac, and Right External Iliac are normal in appearance and patent. The right Superficial Femoral is occluded. Intervention including standard and drug coated balloon angioplasty and self expanding stent placement was performed successfully on the right Superficial Femoral. The left Superficial Femoral has non-significant disease. 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: Denies Any Significant HX Other Medical History: Denies Any Significant HX Anesthesia History: No Prior Anesthetic Complications, Past Anesthesia Alcohol Use: occasionally Drug use: none Medications and Allergies Clopidogrel [Plavix] 75 mg PO DAILY #15 tablet 07/02/17 [Rx] Atorvastatin Calcium [Lipitor] 80 mg PO HS 07/08/17 [History] Metoprolol [Lopressor] 25 mg PO BID 07/08/17 [History] Aspirin Enteric Coated [Aspirin EC] 81 mg PO DAILY 08/25/17 [History] Lactulose 20 gm PO BID PRN 08/25/17 [History] Nitroglycerin [Nitrostat] 0.4 mg SL Q5M PRN 08/25/17 [History] 3 Allergy/AdvReac Type Severity Reaction Status Date / Time No Known Allergies Allergy Verified 08/25/17 14:24 - Meds/Allergy Pre-op Review Medications Reviewed: Yes Allergies Reviewed: Yes Beta Blockers on Current Med List: Yes (Metoprolol) Anesthesia Results - Labs 08/26/17 03:53 08/26/17 03:53 Laboratory Results WBC 11.1 K/mcL (4.3-11.1) 08/26/17 03:53 RBC 4.93 M/mcL (4.19-5.50) 08/26/17 03:53 Hgb 15.6 g/dL (12.9-16.9) 08/26/17 03:53 Hct 45.9 % (37.5-50.1) 08/26/17 03:53 MCV 93.1 fL (83.0-100.0) 08/26/17 03:53 MCH 31.6 pg (28.0-33.3) 08/26/17 03:53 MCHC 34.0 g/dL (31.6-35.5) 08/26/17 03:53 RDW 13.2 % (11.5-14.5) 08/26/17 03:53 Plt Count 222 K/mcL (140-400) 08/26/17 03:53 MPV 10.0 fL (9.4-12.4) 08/26/17 03:53 Immature Gran % 0.3 % (0-4) 08/26/17 03:53 Seg Neutrophils % 73.5 % 08/26/17 03:53 Lymphocytes % 15.3 % 08/26/17 03:53 Monocytes % 10.4 % 08/26/17 03:53 Eosinophils % 0.3 % 08/26/17 03:53 Basophils % 0.2 % 08/26/17 03:53 Neutrophils # 8.2 K/mcL (1.6-8.9) 08/26/17 03:53 Lymphocytes # 1.7 K/mcL (0.6-4.6) 08/26/17 03:53 Monocytes # 1.2 K/mcL (0.0-1.3) 08/26/17 03:53 Eosinophils # 0.0 K/mcL (0.0-0.6) 08/26/17 03:53 Basophils # 0.0 K/mcL (0.0-0.2) 08/26/17 03:53 Sodium 138 mEq/L (136-145) 08/26/17 03:53 Potassium 3.7 mEq/L (3.5-5.1) 08/26/17 03:53 Chloride 107 mEq/L (98-107) 08/26/17 03:53 Carbon Dioxide 24 mEq/L (23-29) 08/26/17 03:53 BUN 15 mg/dL (6-20) 08/26/17 03:53 Creatinine 0.86 mg/dL (0.70-1.30) 08/26/17 03:53 Est GFR ( Amer) > 60 (> 60) 08/26/17 03:53 Est GFR (Non-Af Amer) > 60 (> 60) 08/26/17 03:53 BUN/Creatinine Ratio 17 (6-26) 08/26/17 03:53 Glucose 109 mg/dL (70-105) H 08/26/17 03:53 POC Glucose 122 (58-89) H 08/26/17 11:41 Calculated Osmolality 287 (280-300) 08/26/17 03:53 Lactic Acid 1.4 mmol/L (0.5-2.2) 08/25/17 17:24 Calcium 8.4 mg/dL (8.6-10.3) L 08/26/17 03:53 Total Bilirubin 0.8 mg/dL (0.3-1.0) 08/26/17 03:53 Direct Bilirubin 0.3 mg/dL (0.0-0.2) H 08/25/17 15:44 Indirect Bilirubin 0.6 mg/dL (0.0-1.2) 08/25/17 15:44 AST 16 Units/L (13-39) 08/26/17 03:53 ALT 15 Units/L (7-52) 08/26/17 03:53 Alkaline Phosphatase 116 Units/L (34-104) H 08/26/17 03:53 Serum Total Protein 6.2 g/dL (6.4-8.9) L 08/26/17 03:53 Albumin 3.6 g/dL (3.5-5.7) 08/26/17 03:53 Globulin 2.6 g/dL (2.4-3.5) 08/26/17 03:53 Albumin/Globulin Ratio 1.4 (1.1-2.2) 08/26/17 03:53 Lipase 9 Units/L (11-82) L 08/25/17 15:44 Carcinoembryonic Ag 2.8 ng/mL (Less than 5.0) 08/26/17 13:25 Urine Color Yoana (Yellow) A 08/26/17 09:04 Urine Clarity Clear (Clear) 08/26/17 09:04 Urine pH 5.5 pH Units (5.0-8.0) 08/26/17 09:04 Ur Specific Homer > 1.030 (1.010-1.025) H 08/26/17 09:04 Urine Protein 30 mg/dL (Neg-Trace) H 08/26/17 09:04 Urine Glucose (UA) Normal mg/dL (Normal) 08/26/17 09:04 Urine Ketones Trace mg/dL (Negative) H 08/26/17 09:04 Urine Blood Negative (Negative) 08/26/17 09:04 Urine Nitrite Positive (Negative) A 08/26/17 09:04 Urine Bilirubin Moderate (Negative) H 08/26/17 09:04 Urine Urobilinogen Normal mg/dL (Normal) 08/26/17 09:04 Ur Leukocyte Esterase Small (Negative) H 08/26/17 09:04 Urine Microscopic RBC 5-15 per hpf (0-3) H 08/26/17 09:04 Urine Microscopic WBC 0-3 per hpf (0-3) 08/26/17 09:04 Ur Squamous Epith Cells Few per lpf (None-Few) 08/26/17 09:04 Calcium Oxalate Crystal Present 08/26/17 09:04 Urine Bacteria None Seen per hpf (None-Few) 08/26/17 09:04 Hyaline Casts None Seen per lpf (None-Few) 08/26/17 09:04 Ur Culture Indicated? YES (NO) A 08/26/17 09:04 Impressions Abdomen/Pelvis CT 08/25/17 15:51 IMPRESSION: 1. There is approximately 6 cm segment of colon at the rectosigmoid junction demonstrating mural thickening and significant luminal narrowing which is believed to be causing some partial obstruction with generalized proximal colonic distention. . The appearance is worrisome for neoplasm. Endoscopic correlation is advised. 2. Questionably trace amount of free fluid at the inferior tip of the liver. D/ / Omar Borges MD / Omar Borges MD Interpreting Provider: Omar Borges MD X-Ray 08/25/17 21:24 IMPRESSION: Tip of the nasogastric tube and the side port of the nasogastric tube are now in the expected position, superimposed over the gastric body. D/ / Michael Puentes MD / Michael Puentes MD Interpreting Provider: Michael Puentes MD - Imaging EKG: image reviewed (62bpm SR) Anesthesia Exam Vital Signs Temp Pulse Resp BP Pulse Ox 08/26/17 16:06 97.6 F 118 16 140/88 94 08/26/17 11:43 97.5 F L 83 16 168/103 96 08/26/17 10:11 97.7 F 87 16 160/96 95 08/26/17 08:45 98.3 F 81 18 148/96 94 08/26/17 07:01 98.1 F 84 16 159/94 97 08/26/17 04:51 97.9 F 82 14 163/85 95 08/25/17 23:53 98.9 F 80 14 172/96 95 08/25/17 20:15 95 08/25/17 19:31 97.5 F L 75 14 165/92 95 08/25/17 17:42 18 139/96 Intake and Output 08/26/17 08/26/17 08/26/17 07:59 15:59 23:59 Intake Total 1000 / 1000 0 / 0 10 Output Total 0 / 0 300 / 300 Balance 1000 / 1000 -300 / -300 Intake: IV Fluids 1000 / 1000 0.9 % Sodium Chloride 1,000 ML 1000 / 1000 @ 125 mls/hr IVC .Q8H ROBIN Rx#: [id number] Rocephin 1,000 MG In Water for inj. (sterile) 10 ML @ 300 mls/ hr IVP DAILY ROBIN Rx#:[id number] Oral 0 / 0 0 / 0 Output: Urine 0 / 0 300 / 300 Other: Meal Lunch Percent of Meal Consumed 0% Blood Glucose* 116 122 Height: 5'7" Weight: 185# BMI = 29 NPO (# of Hours): MNoc - HEENT Pupil (Motor): Pupils equal, EOMI Mallampati: II Teeth: Missing, Poor dentition Oral Opening: Greater than 3 - GROCERY PACKER LOC: Oriented GROCERY PACKER Motor: Normal RUE, Normal LUE, Normal RLE, Normal LLE, Normal Face GROCERY PACKER Sensory: Normal: RUE, LUE, RLE, LLE, Face - Cardiac Rhythm: Regular Murmur: None - Pulmonary Breath Sounds: bilateral Clear Respiratory Effort: Symmetrical Anesthesia Assess/Plan ASA Score: 3 (CAD, PVDz, Acute intestinal obstruction, Smoker, HTN, Chol, COPD) Modified Gowrie Scale for Level of Consciousness: Cooperative, oriented, and tranquil Anesthetic Plan: General Monitoring Plan: Standard Monitors Recovery Plan: PACU Anes Supervising Prov Stmt: Pt seen/evaluated, R&B discussed, questions answered and consent obtained. Wang Abdullahi MD
[2017-08-26] MEDS ORDERED: cefTRIAXone 1,000 MG in Water for inj. (sterile) 20 ML 10 ML IVP SCH (16:00)
[2017-08-26] MEDS ORDERED: Albuterol 2.5 MG/3 ML NEBULIZER ONE (19:57)
[2017-08-26] MEDS ORDERED: Albuterol 2.5 MG/3 ML NEBULIZER IH ONE (20:09)
[2017-08-26] MEDS ORDERED: *HR* FentaNYL (PF) 100 MCG/2 ML VIAL ONE ×3 (21:01→23:42)
[2017-08-26] MEDS ORDERED: *HR* Propofol 200 MG/20 ML VIAL IVP ONE (21:01)
[2017-08-26] MEDS ORDERED: Lidocaine -MPF 2% 2 ML VIAL ONE (21:03)
[2017-08-26] MEDS ORDERED: *HR* Rocuronium Bromide 50 MG/5 ML VIAL ONE (21:03)
[2017-08-26] MEDS ORDERED: MORPHINE SUL Oral CONC 10 MG/0.5 ML ORAL.SYG SL ONE (21:08)
[2017-08-26] MEDS ORDERED: *HR* FentaNYL PATCH 50 MCG PATCH TD SCH (21:15)
[2017-08-26] MEDS ORDERED: *HR* FentaNYL PATCH 50 MCG PATCH TD ONE (21:30)
[2017-08-26] MEDS ORDERED: MORPHINE SUL Oral CONC 10 MG/0.5 ML ORAL.SYG SL PRN (22:27)
[2017-08-26] MEDS ORDERED: *HR* OxyCODONE Immed Rel 5 MG TABLET PO PRN (22:27)
[2017-08-26] MEDS ORDERED: *HR* Meperidine 25 MG/ML SYRINGE IVP PRN (22:27)
[2017-08-26] MEDS ORDERED: Acetaminophen IV 1,000 MG/100 ML INFUS..BTL ONE (22:38)
[2017-08-26] MEDS ORDERED: *HR* Succinylcholine 200 MG/10 ML VIAL IVP ONE (23:03)
[2017-08-26] MEDS ORDERED: Ondansetron 4 MG/2 ML VIAL ONE (23:17)
[2017-08-26] MEDS ORDERED: Neostigmine Methylsulfate 3 MG/3 ML SYRINGE ONE (23:32)
--- NOTE | 2017-08-27 00:42 | Operative Note ---
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 The findings are extremely concerning for malignancy. The patient was seen, evaluated, with labs and radiographs reviewed. A Robert procedure is then recommended and discussed in detail. The patient presents to the operating room at this time to undergo that procedure. Technique: The patient was brought to the operating room where he was placed supine on the operating room table. The patient was appropriately identified as to person and procedure. The accuracy of this information was confirmed by the patient and the procedure team. Surgical consent was reviewed and found to be accurate. The patient was then intubated and anesthetized under the supervision of Dr. Vishal Potter. A Taylor catheter was inserted. The abdomen was prepped and draped in the usual sterile fashion. A midline incision was planned with a skin scribe. The skin was incised with a #10 scalpel with the incision extended to the fascia. Leading points were controlled with electrocautery. The fascia was incised along the linea alba. The peritoneal cavity was entered atraumatically. Visualization was aided by use of a self- retaining Omni tract retractor. An exploration of the abdomen and pelvis was completed. The liver demonstrated no palpable abnormalities. There was no gross adenopathy detected in the mesentery or along the aorta. Small bowel was decompressed. The colon was massively distended and the ileocecal valve. In the pelvis, a hard annular lesion corresponding to the CT findings was identified. This lesion is most consistent with an obstructing neoplasm. Visualization to complete the surgery was impeded by the massively dilated colon. A pursestring was placed in the anterior tinea of the sigmoid colon, the colon was isolated with lap sponges and towels. A colotomy was created with the Bovie electrocautery and a suction device was inserted. Approx 200 mL of semiliquid stool was evacuated, however the, thick consistency of the stool impeded complete decompression of the bowel. It was also some spillage stool into the field which was controlled with the wrap sponges and towels. The suction device was removed and the colotomy closed with the silk pursestring that had been placed for this purpose. The lap sponges and towels were removed and discarded the surgeon and assistants regloved. The sigmoid colon was mobilized by incising the lateral peritoneal reflection. Is able to extend the dissection into the pelvis distal to the readily palpable mass. The mesentery was divided with the aid of a Sticky[employer].tv Impact dissector. the distal sigmoid/ proximal rectum was sufficiently skeletonized to allow placement of an Ethicon TX 60 mm stapler. Noncrushing clamps were applied proximal to the stapler. The bowel was labeled and divided at this level. Further dissection of the mesentery allowed exteriorization of the sigmoid and its contained mass. Dissection was continued proximally to the distal descending colon. The bowel was transected at this level after application of an Ethicon 90 mm linear stapler. A noncrushing bowel clamp was applied distal to the staple line. The sigmoid colon and contained mass were removed from the field. The lateral peritoneal reflection of the descending colon was incised and the mesentery dissected until sufficient mobilization of the descending colon was completed to exteriorize through a previously marked colostomy site just cephalad and left of the umbilicus. Circular incision was placed in the anterior abdominal wall at this marked colostomy site. Section was extended to the anterior rectus sheath. Bleeding points were controlled electrocautery. The anterior rectus sheath was incised transversely the left rectus abdominis muscle split in the direction of its fibers and the posterior rectus sheath was incised. The descending colostomy was exteriorized and secured with a noncrushing clamp until the abdominal cavity could be closed. Hemostasis was checked and deemed adequate. An elongated, noninflamed appendix was evident. The mesoappendix was divided with the Covidien Impact dissector. The appendix was transected at its junction with the cecum using a TX 60 mm stapler. The appendix was removed was sent to pathology with the sigmoid colon. The stump of the appendix was cauterized with the Bovie electrocautery. The peritoneal cavity was then closed in layers. The peritoneum was closed with running interlocking 0 Vicryl. The fascia was closed with interrupted [id number]-[id number] 0 Vicryl. Subcutaneous tissue was approximated with running 3-0 Vicryl. The skin edges were approximated with caterina. A dry sterile gauze dressing was placed. The end colostomy was then matured by excising the staple line followed by 4 corner vertical mattress 3-0 chromic. The colon mucosa was approximated to the skin edges using interrupted simple 3-0 chromic. An ostomy appliance was placed. The end colostomy was digitally examined and found to be widely patent. There was passage of gas during this examination. The patient was taken to PACU. Needle, sponge, and instrument counts were correct at the close of the case.
--- NOTE | 2017-08-27 00:56 | Anesthesia Evaluation Post Op ---
Date of Encounter: 08/27/17 Time of Encounter: 00:56 - Vital Signs Vital Signs: Vital Signs/O2 Sat, Most Current Temp Pulse Resp BP Pulse Ox 98.4 F 99 18 163/94 94 08/27/17 00:50 08/27/17 00:50 08/27/17 00:50 08/27/17 00:50 08/27/17 00:50 - Lungs Lungs: Clear Ascult./Percussion - Airway Airway: Non-obstructed - Cardiovascular Regular Rate - Mental Status Mental Status: Alert & Oriented, Answers Appropriately - Pain Pain Scale: 3 Pain Scale used: Numeric (1 - 10) - Nausea Vomiting Nausea Vomiting: Not Present - Hydration Hydration: NPO, Taylor catheter - Discharge PostOp Status: Transfer Patient to floor
[2017-08-27] MEDS ORDERED: Ondansetron 4 MG/2 ML VIAL IVP PRN (00:58)
[2017-08-27] MEDS ORDERED: Naloxone 0.4 MG/ML INJ IVP PRN (00:58)
[2017-08-27] MEDS ORDERED: Nitroglycerin 0.4 MG TAB.SUBL SL PRN (00:58)
[2017-08-27] MEDS: 0.9 % Sodium Chloride 1,000 ML IVC SCH ×2 (01:25→01:46)
[2017-08-27] MEDS: *HR* Metoprolol 5 MG/5 ML VIAL IVP SCH ×4 (01:27→16:40)
[2017-08-27] MEDS: *HR* FentaNYL (PF) 100 MCG/2 ML VIAL IVP PRN ×5 (01:47→17:04)
[2017-08-27] MEDS: Albuterol 2.5 MG/3 ML NEBULIZER IH SCH ×4 (03:58→21:33)
[2017-08-27 09:26] LABS: Basophils % 0.2 %; Hematocrit 39.7 % (37.5-50.1); Immature Granulocytes % 0.2 % (0-4); Lymphocytes # 0.8 K/mcL (0.6-4.6); Lymphocytes % 8.3 %; Mean Corpuscular HGB Conc 33.5 g/dL (31.6-35.5); Mean Corpuscular Hemoglobin 31.5 pg (28.0-33.3); Mean Corpuscular Volume 94.1 fL (83.0-100.0); Mean Platelet Volume 9.6 fL (9.4-12.4); Monocytes % 10.3 %; Neutrophils # 7.6 K/mcL (1.6-8.9); Platelet Count 212 K/mcL (140-400); Red Blood Count 4.22 M/mcL (4.19-5.50); Red Cell Distribution Width 13.5 % (11.5-14.5)
[2017-08-27 09:32] LABS: Hemoglobin 13.3 g/dL (12.9-16.9)
[2017-08-27 09:51] LABS: BUN/Creatinine Ratio 19 (6-26); Blood Urea Nitrogen 14 mg/dL (6-20); Calcium 7.7 mg/dL (8.6-10.3); Carbon Dioxide 24 mEq/L (23-29); Chloride 110 mEq/L (98-107); Glucose 132 mg/dL (70-105); Osmolality,Calculated 290 (280-300); Potassium 3.5 mEq/L (3.5-5.1); Sodium 139 mEq/L (136-145); eGFR For African Americans > 60 (> 60); eGFR For Non-African Americans > 60 (> 60)
[2017-08-27] MEDS: D5% in 0.45% NACL 1,000 ML IVC SCH ×2 (11:44→19:58)
--- NOTE | 2017-08-27 12:13 | Internal Med Progress Note ---
Date of Encounter: 08/27/17 Time of Encounter: 12:11 - Assessment and plan (1) Colonic mass Current Visit: Yes Status: Acute Assessment and plan: Possible malignancy Follow path report Onc meg noted (2) Large bowel obstruction Current Visit: Yes Status: Acute Assessment and plan: POD 1 s/p exp lap/Daniel/Appendectomy/colonosocpy Management per surgery day 1 of Zosyn (3) UTI (urinary tract infection) Current Visit: Yes Status: Ruled-out Assessment and plan: Ruled out Abnormal UA, Urine culture with no growth D/C ceftriaxone Qualifiers: Urinary tract infection type: acute cystitis Hematuria presence: with hematuria Qualified Code(s): N30.01 - Acute cystitis with hematuria (4) Essential hypertension Current Visit: Yes Status: Chronic Assessment and plan: Metoprolol q6 prn (5) Mixed hyperlipidemia Current Visit: Yes Status: Chronic Assessment and plan: History of hyperlipidemia. Holding home Plavix and atorvastatin patient is NPO due to surgery (6) Tobacco abuse Current Visit: Yes Status: Chronic Assessment and plan: encourage cessation (7) Tachycardia Current Visit: Yes Status: Acute Assessment and plan: regular, sinus, EKG woth VR 140, sinus tachy GIve IVF hydration, patient is clinically dry zgive dilt one bolus Repeat EKG am Keep on tele - Subjective Interval history: Seen and evaluated at bedside POD 1 s/p daniel procedure, appendectomy and L colostomy placement He denies chest pain, shortness of breath He feels much more improved He is very dry clinically and has tachycardia EKG is sinus, no Aflutter or fib - Constitutional Vitals: Temp Pulse Resp BP Pulse Ox 98.7 F 104 18 113/79 93 08/27/17 11:47 08/27/17 11:47 08/27/17 11:47 08/27/17 11:47 08/27/17 11:47 General appearance: Present: cooperative, A&O X 3, pleasant, no acute distress, answers questions appropriately - Head Head exam: Present: atraumatic, normocephalic - ENT ENT exam: Present: mucous membranes dry - Neck Neck exam general surgery: Present: normal inspection - Respiratory Respiratory exam: Present: CTAB - Cardiovascular Cardiovascular exam: Present: RRR, +S1, +S2, tachycardia. Absent: diastolic murmur, gallop, rubs, systolic murmur - GI/Abdominal GI/Abdominal exam: Present: soft Additional comments: dressing clean and dry LUQ colostomy, bag with some blood - Extremities Exam Extremities exam: Present: warm, radial pulses palpable and symmetrical. Absent : calf tenderness, cyanotic, pedal edema - Neurological Exam Neurological exam: Present: alert, CN II-XII intact, oriented X3, no focal deficits. Absent: pronater drift, facial droop, speech deficit - Skin Skin exam: Present: dry, intact Internal Medicine: Result - Labs CBC & Chem 7: 08/27/17 08:54 08/27/17 08:54 Labs: Short CBC 08/27/17 Range/Units 08:54 WBC 9.4 (4.3-11.1) K/mcL Hgb 13.3 D (12.9-16.9) g/dL Hct 39.7 (37.5-50.1) % Plt Count 212 (140-400) K/mcL Neutrophils # 7.6 (1.6-8.9) K/mcL BMP 08/27/17 08:54 Sodium 139 Potassium 3.5 Chloride 110 H Carbon Dioxide 24 BUN 14 Creatinine 0.74 Glucose 132 H Calcium 7.7 L - VTE Documentation of Mechanical Device: Intermittent pneumatic compression device Consult Discharge Plan - Plan Referrals: Purnima Ordaz CNP [Primary Care Provider] -
[2017-08-28] MEDS: *HR* Metoprolol 5 MG/5 ML VIAL IVP SCH ×5 (00:52→23:38)
[2017-08-28] MEDS: Albuterol 2.5 MG/3 ML NEBULIZER IH SCH ×4 (03:23→21:30)
[2017-08-28] MEDS: D5% in 0.45% NACL 1,000 ML IVC SCH ×2 (04:25→23:37)
[2017-08-28] MEDS: Pantoprazole 40 MG VIAL IVP SCH (04:51)
[2017-08-28 05:22] LABS: Basophils % 0.2 %; Eosinophils # 0.1 K/mcL (0.0-0.6); Eosinophils % 0.6 %; Hematocrit 34.3 % (37.5-50.1); Hemoglobin 11.7 g/dL (12.9-16.9); Immature Granulocytes % 0.2 % (0-4); Lymphocytes # 0.9 K/mcL (0.6-4.6); Lymphocytes % 9.6 %; Mean Corpuscular HGB Conc 34.1 g/dL (31.6-35.5); Mean Corpuscular Hemoglobin 31.9 pg (28.0-33.3); Mean Corpuscular Volume 93.5 fL (83.0-100.0); Mean Platelet Volume 10.1 fL (9.4-12.4); Monocytes # 0.9 K/mcL (0.0-1.3); Monocytes % 10.3 %; Platelet Count 169 K/mcL (140-400); Red Blood Count 3.67 M/mcL (4.19-5.50); Red Cell Distribution Width 13.4 % (11.5-14.5); Segmented Neutrophils % 79.1 %
[2017-08-28 05:42] LABS: BUN/Creatinine Ratio 14 (6-26); Blood Urea Nitrogen 10 mg/dL (6-20); Calcium 7.8 mg/dL (8.6-10.3); Carbon Dioxide 29 mEq/L (23-29); Chloride 105 mEq/L (98-107); Glucose 152 mg/dL (70-105); Osmolality,Calculated 286 (280-300); Potassium 3.2 mEq/L (3.5-5.1); Sodium 137 mEq/L (136-145); eGFR For African Americans > 60 (> 60); eGFR For Non-African Americans > 60 (> 60)
[2017-08-28] MEDS ORDERED: 0.9 % Sodium Chloride 1,000 ML IVC ONE (08:02)
[2017-08-28] MEDS: *HR* FentaNYL (PF) 100 MCG/2 ML VIAL IVP PRN ×4 (08:23→20:19)
[2017-08-28] MEDS ORDERED: Pantoprazole 40 MG VIAL IVP SCH (09:00)
--- NOTE | 2017-08-28 09:42 | Internal Med Progress Note ---
Date of Encounter: 08/28/17 Time of Encounter: 09:00 - Assessment and plan (1) Colonic mass Current Visit: Yes Status: Acute Assessment and plan: Possible malignancy Follow path report Onc meg noted (2) Large bowel obstruction Current Visit: Yes Status: Acute Assessment and plan: POD 1 s/p exp lap/Daniel/Appendectomy/colonosocpy Management per surgery day 2 of Zosyn (3) UTI (urinary tract infection) Current Visit: Yes Status: Ruled-out Assessment and plan: Ruled out Abnormal UA, Urine culture with no growth D/C ceftriaxone Qualifiers: Urinary tract infection type: acute cystitis Hematuria presence: with hematuria Qualified Code(s): N30.01 - Acute cystitis with hematuria (4) Essential hypertension Current Visit: Yes Status: Chronic Assessment and plan: Metoprolol q6 prn, continue same (5) Mixed hyperlipidemia Current Visit: Yes Status: Chronic Assessment and plan: History of hyperlipidemia. Holding home Plavix and atorvastatin patient is NPO due to surgery (6) Tobacco abuse Current Visit: Yes Status: Chronic Assessment and plan: encourage cessation (7) Tachycardia Current Visit: Yes Status: Acute Assessment and plan: regular, sinus, EKG / VR 140, sinus tachy Possible due to dehydration and pain Repeat EKG Continue IVF Strict I/Os (8) Hypokalemia Current Visit: Yes Status: Acute Assessment and plan: replaced IV - Subjective Interval history: Seen and evaluated at bedside POD 1 s/p daniel procedure, appendectomy and L colostomy placement He denies chest pain, shortness of breath He developed severe abdominal pain this morning, and I had requested the RN to call the surgeon At time of review, patient reports his abdominal pain improved after NGT placeemnt He has a gastric efflluent of 500cc , and a urinary output of 140cc He is receiving IVF Repeat EKG has been ordered He has no chest or cardiac symptoms - Constitutional Vitals: Temp Pulse Resp BP Pulse Ox 98.5 F 103 14 146/88 90 08/28/17 06:36 08/28/17 06:36 08/28/17 06:36 08/28/17 06:36 08/28/17 06:36 General appearance: Present: cooperative, A&O X 3, pleasant, no acute distress, answers questions appropriately - Head Head exam: Present: atraumatic, normocephalic - Eye Eye exam: Present: PERRL, conjuntiva pink, sclera anicteric Pupils: Present: PERRL - Neck Neck exam general surgery: Present: supple, trachea midline. Absent: lymphadenopathy - Respiratory Respiratory exam: Present: CTAB. Absent: accessory muscle use, rales, rhonchi, wheezes - Cardiovascular Cardiovascular exam: Present: RRR, +S1, +S2, tachycardia. Absent: diastolic murmur, gallop, rubs, systolic murmur - GI/Abdominal Additional comments: dressing clean and dry, minimal blood stain periumbilically LUQ colostomy, bag with some blood - Extremities Exam Extremities exam: Present: warm, radial pulses palpable and symmetrical. Absent : calf tenderness, cyanotic, pedal edema - Neurological Exam Neurological exam: Present: alert, CN II-XII intact, oriented X3, no focal deficits. Absent: pronater drift, facial droop, speech deficit - Skin Skin exam: Present: dry, intact Internal Medicine: Result - Labs CBC & Chem 7: 08/28/17 04:05 08/28/17 04:05 Labs: Short CBC 08/28/17 Range/Units 04:05 WBC 8.8 (4.3-11.1) K/mcL Hgb 11.7 L D (12.9-16.9) g/dL Hct 34.3 L (37.5-50.1) % Plt Count 169 (140-400) K/mcL Neutrophils # 7.0 (1.6-8.9) K/mcL BMP 08/27/17 08/28/17 08:54 04:05 Sodium 139 137 Potassium 3.5 3.2 L Chloride 110 H 105 Carbon Dioxide 24 29 BUN 14 10 Creatinine 0.74 0.70 Glucose 132 H 152 H Calcium 7.7 L 7.8 L - Impressions Impressions KUB X-Ray 08/28/17 08:36 IMPRESSION: 1. Nasogastric tube side port is at the GE junction. Recommend advancement by 3 cm for more optimal positioning. 2. Gaseous distention of the small bowel measuring up to 5.2 cm. Gas is also identified throughout the colon. 3. No free air. D/ / Laura Shelton MD / Laura Shelton MD Interpreting Provider: Laura Shelton MD - VTE Documentation of Mechanical Device: Intermittent pneumatic compression device Consult Discharge Plan - Plan Referrals: Purnima Ordaz CNP [Primary Care Provider] -
[2017-08-28] MEDS ORDERED: Chloraseptic Spray 177 ML BOTTLE MM PRN (11:23)
--- NOTE | 2017-08-28 11:30 | General Surgery Progress Note ---
Date of Encounter: 08/28/17 Time of Encounter: 11:15 Subjective Narrative: General Surgery - POD #1 Contacted earlier today by nursing staff regarding the patient's abdominal distention - abdomen described as tense and distended. No active bowel sounds. Patient had been consuming ice chips/water for "dry mouth". This is most likely due to medications administered by anesthesia during surgery to diminish secretions. This causes patient's a complaint of dry mouth. This was explained to the patient, however, despite my warnings he has consumed ice chips and fluids to alleviate his symptoms. Nasogastric tube was inserted with significant relief of these complaints though the patient continues to have dry mouth. Initial NG output approximately 800 mL, dark green fluid the patient has remained afebrile since surgery, maximum temperature 99.7; heart rate 102, tachycardic to 130 through the night; blood pressure 132/77 Respiratory rate 16-18 Lungs: Clear, no obvious pain on deep inspiration Abdomen: Tense, distended, quiet. 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 electrolytes notable for potassium 3.2. Other electrolytes, BUN, creatinine within normal limits. 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 Post op ileus - hypokalemia CAD with prior AL, s/p coronary stents post op tachycardia - likely due to post op pain related to ileus history tobacco use - continue aerosol therapy maintain Taylor for post op monitoring continue NPO and NG (except ice chips sparingly) until bowel function resumes Objective Vital Signs - Last 8 Hours Temp Pulse Resp BP Pulse Ox 08/28/17 10:58 18 91 08/28/17 10:37 98.4 F 102 16 132/77 90 08/28/17 06:36 98.5 F 103 14 146/88 90 08/28/17 04:56 98.7 F 113 18 138/92 90 Intake and Output 08/27/17 08/28/17 08/28/17 23:59 07:59 15:59 Intake Total 1100 / 1100 1100 / 1100 Output Total 300 / 300 550 / 550 250 / 250 Balance 800 / 800 550 / 550 -250 / -250 Intake: IV Fluids 1100 / 1100 1100 / 1100 D5% And 0.45% Nacl 1000 Ml Bag 1000 / 1000 1000 / 1000 1,000 ML @ 100 mls/hr IVC .Q10H ROBIN Rx#:[id number] Zosyn 3.375 GM In 0.9 % Sodium 100 / 100 100 / 100 Chloride 100 ML @ 25 mls/hr IVPB Q8HR ROBIN Rx#:[id number] Oral 0 / 0 Output: Urine 300 / 300 Catheter 550 / 550 250 / 250 Other: Meal NPO Percent of Meal Consumed 0% Blood Glucose* 161 - Labs 08/28/17 04:05 08/28/17 04:05 Diabetes panel 08/28/17 Range/Units 04:05 Sodium 137 (136-145) mEq/L Potassium 3.2 L (3.5-5.1) mEq/L Chloride 105 (98-107) mEq/L Carbon Dioxide 29 (23-29) mEq/L BUN 10 (6-20) mg/dL Creatinine 0.70 (0.70-1.30) mg/dL Glucose 152 H (70-105) mg/dL Calcium 7.8 L (8.6-10.3) mg/dL Calcium panel 08/28/17 Range/Units 04:05 Calcium 7.8 L (8.6-10.3) mg/dL Pituitary panel 08/28/17 Range/Units 04:05 Sodium 137 (136-145) mEq/L Potassium 3.2 L (3.5-5.1) mEq/L Chloride 105 (98-107) mEq/L Carbon Dioxide 29 (23-29) mEq/L BUN 10 (6-20) mg/dL Creatinine 0.70 (0.70-1.30) mg/dL Glucose 152 H (70-105) mg/dL Calcium 7.8 L (8.6-10.3) mg/dL Adrenal panel 08/28/17 Range/Units 04:05 Sodium 137 (136-145) mEq/L Potassium 3.2 L (3.5-5.1) mEq/L Chloride 105 (98-107) mEq/L Carbon Dioxide 29 (23-29) mEq/L BUN 10 (6-20) mg/dL Creatinine 0.70 (0.70-1.30) mg/dL Glucose 152 H (70-105) mg/dL Calcium 7.8 L (8.6-10.3) mg/dL - VTE Documentation of Mechanical Device: Intermittent pneumatic compression device Consult Discharge Plan - Plan Referrals: Purnima Ordaz, BUTCH [Primary Care Provider] -
[2017-08-28] MEDS: 0.9 % Sodium Chloride 1,000 ML IVC SCH (19:43)
[2017-08-29] MEDS: *HR* FentaNYL (PF) 100 MCG/2 ML VIAL IVP PRN ×4 (01:22→23:12)
[2017-08-29] MEDS: Albuterol 2.5 MG/3 ML NEBULIZER IH SCH ×4 (04:04→21:37)
[2017-08-29 04:09] LABS: Basophils % 0.3 %; Eosinophils # 0.3 K/mcL (0.0-0.6); Eosinophils % 3.2 %; Hematocrit 32.8 % (37.5-50.1); Hemoglobin 10.8 g/dL (12.9-16.9); Immature Granulocytes % 0.3 % (0-4); Lymphocytes # 1.1 K/mcL (0.6-4.6); Lymphocytes % 12.3 %; Mean Corpuscular HGB Conc 32.9 g/dL (31.6-35.5); Mean Corpuscular Hemoglobin 30.9 pg (28.0-33.3); Mean Platelet Volume 10.2 fL (9.4-12.4); Monocytes # 0.7 K/mcL (0.0-1.3); Neutrophils # 6.6 K/mcL (1.6-8.9); Nucleated Red Blood Cells 0.2 /100 WBC (0); Platelet Count 170 K/mcL (140-400); Red Blood Count 3.49 M/mcL (4.19-5.50); Red Cell Distribution Width 13.2 % (11.5-14.5); Segmented Neutrophils % 75.9 %
[2017-08-29 04:31] LABS: BUN/Creatinine Ratio 12 (6-26); Blood Urea Nitrogen 8 mg/dL (6-20); Calcium 7.9 mg/dL (8.6-10.3); Carbon Dioxide 29 mEq/L (23-29); Chloride 102 mEq/L (98-107); Glucose 124 mg/dL (70-105); Osmolality,Calculated 284 (280-300); Potassium 2.8 mEq/L (3.5-5.1); Sodium 137 mEq/L (136-145); eGFR For African Americans > 60 (> 60); eGFR For Non-African Americans > 60 (> 60)
[2017-08-29] MEDS: Pantoprazole 40 MG VIAL IVP SCH (05:31)
[2017-08-29] MEDS: *HR* Metoprolol 5 MG/5 ML VIAL IVP SCH ×4 (06:09→23:17)
--- NOTE | 2017-08-29 07:43 | General Surgery Progress Note ---
Date of Encounter: 08/29/17 - Assessment and Plan (1) Colonic mass Current Visit: Yes Status: Acute Plan: POD#2 s/p proctosigmoidectomy/ ainsley's procedure - NG placed yesterday for abdominal distension, patient NPO with ice chips sparingly - possible malignancy, onco consulted - pain managed by fentanyl - awaiting path report (2) Large bowel obstruction Current Visit: Yes Status: Acute Plan: - NG placed yesterday for abdominal distension, patient NPO with ice chips sparingly - NG output= 650 - management per surgery - day #3 Zosyn (3) UTI (urinary tract infection) Current Visit: Yes Status: Ruled-out Ruled out Abnormal UA, Urine culture with no growth D/C ceftriaxone Qualifiers: Urinary tract infection type: acute cystitis Hematuria presence: with hematuria Qualified Code(s): N30.01 - Acute cystitis with hematuria (4) Mixed hyperlipidemia Current Visit: Yes Status: Chronic History of hyperlipidemia. Holding home Plavix and atorvastatin patient is NPO due to surgery (5) Tobacco abuse Current Visit: Yes Status: Chronic (6) Essential hypertension Current Visit: Yes Status: Chronic Metoprolol 5mg IV Q6hr, continue (7) Tachycardia Current Visit: Yes Status: Acute Plan: -regular, sinus, EKG 08/27 VR 140, sinus tachy, Possible due to dehydration and pain Repeat EKG 08/28 showed: Continue IVF Strict I/Os (8) Hypokalemia Current Visit: Yes Status: Acute Objective Vital Signs - Last 8 Hours Temp Pulse Resp BP Pulse Ox 08/29/17 07:29 97.9 F 88 20 132/82 91 08/29/17 04:10 98.7 F 99 14 132/85 92 08/29/17 04:04 14 96 08/29/17 00:42 98.2 F 101 14 141/92 93 Intake and Output 08/28/17 08/28/17 08/29/17 15:59 23:59 07:59 Intake Total 100 / 100 2560 / 2560 180 / 180 Output Total 250 / 250 1300 / 1300 1250 / 1250 Balance -150 / -150 1260 / 1260 -1070 / -1070 Intake: IV Fluids 100 / 100 2500 / 2500 100 / 100 D5% And 0.45% Nacl 1000 Ml Bag 1000 / 1000 1,000 ML @ 100 mls/hr IVC .Q10H ROBIN Rx#:[id number] Zosyn 3.375 GM In 0.9 % Sodium 100 / 100 100 / 100 100 / 100 Chloride 100 ML @ 25 mls/hr IVPB Q8HR ROBIN Rx#:[id number] Potassium Chloride 10 mEq/100mL 400 / 400 10 meq In 100 ml @ 100 mls/hr IVPB Q1H ROBIN Rx#:[id number] Oral 60 / 60 80 / 80 Output: Stool 100 / 100 Catheter 250 / 250 800 / 800 500 / 500 Gastric Drainage 500 / 500 650 / 650 Other: Meal NPO Percent of Meal Consumed 0% Stool Consistency liquid soft Stool Color Brown Weight 83.733 kg Blood Glucose* 106 107 Patient Weight 08/29/17 23:59 Weight 83.733 kg - Labs 08/29/17 03:15 08/29/17 03:15 Diabetes panel 08/29/17 Range/Units 03:15 Sodium 137 (136-145) mEq/L Potassium 2.8 L (3.5-5.1) mEq/L Chloride 102 (98-107) mEq/L Carbon Dioxide 29 (23-29) mEq/L BUN 8 (6-20) mg/dL Creatinine 0.69 L (0.70-1.30) mg/dL Glucose 124 H (70-105) mg/dL Calcium 7.9 L (8.6-10.3) mg/dL Calcium panel 08/29/17 Range/Units 03:15 Calcium 7.9 L (8.6-10.3) mg/dL Pituitary panel 08/29/17 Range/Units 03:15 Sodium 137 (136-145) mEq/L Potassium 2.8 L (3.5-5.1) mEq/L Chloride 102 (98-107) mEq/L Carbon Dioxide 29 (23-29) mEq/L BUN 8 (6-20) mg/dL Creatinine 0.69 L (0.70-1.30) mg/dL Glucose 124 H (70-105) mg/dL Calcium 7.9 L (8.6-10.3) mg/dL Adrenal panel 08/29/17 Range/Units 03:15 Sodium 137 (136-145) mEq/L Potassium 2.8 L (3.5-5.1) mEq/L Chloride 102 (98-107) mEq/L Carbon Dioxide 29 (23-29) mEq/L BUN 8 (6-20) mg/dL Creatinine 0.69 L (0.70-1.30) mg/dL Glucose 124 H (70-105) mg/dL Calcium 7.9 L (8.6-10.3) mg/dL - VTE Documentation of Mechanical Device: Intermittent pneumatic compression device Consult Discharge Plan - Plan Referrals: Purnima Ordaz, POWER TRANSMISSION ENGINEER [Primary Care Provider] -
--- NOTE | 2017-08-29 08:04 | Internal Med Progress Note ---
<MckeonCarley - Last Filed: 08/29/17 13:19> Date of Encounter: 08/29/17 Time of Encounter: 10:10 - Assessment and plan (1) Colonic mass Current Visit: Yes Status: Acute Assessment and plan: Plan: POD#2 s/p proctosigmoidectomy/ ainsley's procedure - NG placed yesterday for abdominal distension, patient NPO with ice chips sparingly - possible malignancy, onco consulted - pain managed by fentanyl - awaiting path report - continue Zosyn (2) Large bowel obstruction Current Visit: Yes Status: Acute Assessment and plan: Plan: POD#2 s/p proctosigmoidectomy/ ainsley's procedure - NG placed yesterday for abdominal distension, patient NPO with ice chips sparingly - NG output= 650 - management per surgery - continue NPO - day #3 Zosyn (3) UTI (urinary tract infection) Current Visit: Yes Status: Ruled-out Assessment and plan: Ruled out Abnormal UA, Urine culture with no growth D/C ceftriaxone Qualifiers: Urinary tract infection type: acute cystitis Hematuria presence: with hematuria Qualified Code(s): N30.01 - Acute cystitis with hematuria (4) Mixed hyperlipidemia Current Visit: Yes Status: Chronic Assessment and plan: History of hyperlipidemia. Holding home Plavix and atorvastatin (5) Tobacco abuse Current Visit: Yes Status: Chronic (6) Essential hypertension Current Visit: Yes Status: Chronic Assessment and plan: - Bp well controlled -Metoprolol 5mg IV Q6hr, continue - continue monitoring vitals (7) Tachycardia Current Visit: Yes Status: Acute Assessment and plan: Plan: - patient still tachycardic up to 113bpm -regular, sinus, EKG 08/27 VR 140, sinus tachy, Possible due to dehydration and pain Repeat EKG 08/28 showed: Continue IVF D5 Strict I/Os (8) Hypokalemia Current Visit: Yes Status: Acute Assessment and plan: today K= 2.8, will replace with 40mg IV today. Recheck in the AM. (9) DVT prophylaxis Current Visit: Yes Status: Acute Assessment and plan: ambulating TID and SCIDs - Subjective Interval history: Mr. Bedolla is a 57-year-old male past medical history of hypertension, CAD, hyperlipidemia who presented to the ED with constipation and was found to have an obstructing mass in the rectosigmoid. Patient is POD#2 of Ainsley's procedure. This morning patient states that he is feeling better without abdominal pain. Patient states that he wants to get up and walk around. Patient is also desiring to take a shower. Admits to belching. Patient denies nausea, vomiting. - Constitutional Vitals: Temp Pulse Resp BP Pulse Ox 97.9 F 88 20 132/82 91 08/29/17 07:29 08/29/17 07:29 08/29/17 07:29 08/29/17 07:29 08/29/17 07:29 General appearance: Present: cooperative, A&O X 3, pleasant, no acute distress, answers questions appropriately - Other Additional findings: Constitutional: Alert, in no acute distress, well nourished, well developed. Head: Normocephalic, atraumatic, Heart: Normal, regular rate and rhythm, no murmurs Lungs: Clear to auscultation, no wheezes, rales, or rhonchi Abdomen: distension present but still soft, vertical abdominal incision with colostomy back on left with brown semi-solid output, BS present, no guarding or rigidity Extremities: No clubbing, cyanosis, or edema, capillary refill <2sec. Skin: Skin warm and dry, no lesions, no rashes, no jaundice Neurologic: Cranial nerves II through XII grossly intact, no focal deficits, strength within normal limits in all extremities Psych: Cooperative with exam, good eye contact, cognitive function intact, judgment good insight good, speech clear, thought process logical, and goal directed Internal Medicine: Result - Labs CBC & Chem 7: 08/29/17 03:15 08/29/17 03:15 Labs: Short CBC 08/29/17 Range/Units 03:15 WBC 8.6 (4.3-11.1) K/mcL Hgb 10.8 L (12.9-16.9) g/dL Hct 32.8 L (37.5-50.1) % Plt Count 170 (140-400) K/mcL Neutrophils # 6.6 (1.6-8.9) K/mcL BMP 08/29/17 03:15 Sodium 137 Potassium 2.8 L Chloride 102 Carbon Dioxide 29 BUN 8 Creatinine 0.69 L Glucose 124 H Calcium 7.9 L - Impressions Impressions KUB X-Ray 08/28/17 08:36 IMPRESSION: 1. Nasogastric tube side-port is at the GE junction. Recommend advancement by 3 cm for more optimal positioning. 2. Gaseous distention of the small bowel measuring up to 5.2 cm. Gas is also identified throughout the colon. 3. No free air. D/ / 08/28/2017 10:11:59 Laura Shelton MD / [email or web address] Interpreting Provider: Laura Shelton MD - VTE Documentation of Mechanical Device: Intermittent pneumatic compression device Consult Discharge Plan - Plan Referrals: Purnima Ordaz CNP [Primary Care Provider] - <Alfa Johnston - Last Filed: 08/29/17 15:16> Date of Encounter: 08/29/17 - Assessment and plan (1) Colonic mass Current Visit: Yes Status: Acute (2) Large bowel obstruction Current Visit: Yes Status: Acute (3) UTI (urinary tract infection) Current Visit: Yes Status: Ruled-out Qualifiers: Urinary tract infection type: acute cystitis Hematuria presence: with hematuria Qualified Code(s): N30.01 - Acute cystitis with hematuria (4) Essential hypertension Current Visit: Yes Status: Chronic (5) Mixed hyperlipidemia Current Visit: Yes Status: Chronic (6) Tobacco abuse Current Visit: Yes Status: Chronic (7) Tachycardia Current Visit: Yes Status: Acute (8) Hypokalemia Current Visit: Yes Status: Acute - Constitutional Vitals: Temp Pulse Resp BP Pulse Ox 98.2 F 91 16 137/86 92 08/29/17 11:03 08/29/17 11:03 08/29/17 11:03 08/29/17 11:03 08/29/17 11:03 Internal Medicine: Result - Labs CBC & Chem 7: 08/29/17 03:15 08/29/17 03:15 Labs: Short CBC 08/29/17 Range/Units 03:15 WBC 8.6 (4.3-11.1) K/mcL Hgb 10.8 L (12.9-16.9) g/dL Hct 32.8 L (37.5-50.1) % Plt Count 170 (140-400) K/mcL Neutrophils # 6.6 (1.6-8.9) K/mcL BMP 08/29/17 03:15 Sodium 137 Potassium 2.8 L Chloride 102 Carbon Dioxide 29 BUN 8 Creatinine 0.69 L Glucose 124 H Calcium 7.9 L - Attending Attestation Seen and reviewed d/c rene ambulate continue current management monitor O2 sat replace K, repeat K level p.m, and replace prn still having large effluent from NG tube. Keep npo rest as in resident physician's documentation
[2017-08-29] MEDS: D5% in 0.45% NACL 1,000 ML IVC SCH ×3 (12:21→23:10)
[2017-08-29] MEDS ORDERED: *HR* FentaNYL PATCH 25 MCG PATCH TD SCH (14:15)
--- NOTE | 2017-08-29 16:32 | Electrocardiograph Report ---
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
--- NOTE | 2017-08-29 17:19 | Electrocardiograph Report ---
[place] [address] Test Date: 2017-08-28 Pat Name: Santana Bedolla Department: 115 Room: 3A15 Gender: M Commercial Internship: BRIGHT : 1960 Requested By: Alfa Johnston Order Number: [id number] Reading MD: Harman Walker DO Measurements Intervals [place] Rate: 94 P: 25 UT: 130 QRS: -8 QRSD: 101 T: -12 QT: 340 QTc: 392 Interpretive Statements SINUS RHYTHM NONSPECIFIC ST-T CHANGES Electronically Signed On 08-29-2017 17:17:49 EST by Harman Walker DO
--- NOTE | 2017-08-29 20:26 | General Surgery Progress Note ---
Date of Encounter: 08/29/17 Time of Encounter: 20:19 Subjective Patient reports: feels better Narrative: General Surgery - POD #2 patient seen earlier today and again this evening. Nasogastric tube removed; no increased abdominal distention, nausea or vomiting. Patient remains afebrile, pulse 91 and 99; respiratory rate 16, blood pressure 122/78 Lungs: Clear; no obvious abdominal pain with deep inspiration Abdomen: Soft, minimally tender. Midline incision clean and dry. Stoma appears viable and the left upper anterior abdominal wall; colostomy patent and appears to be functioning. Bowel sounds remained hypoactive Taylor catheter removed; patient able to void; urine output approximately 1600 mL for calendar day 08/28/17; 960 mL so far today Gastric drainage between 500 mL and 650 mL due to excessive ice chips consumption by the patient Laboratories: White count 8.6; hemoglobin 10.8 / hematocrit 32.2 differential within normal limits. Electrolytes within normal limits; hypokalemia of 2.8 this morning corrected to 3.9 this evening. The hypokalemia most likely related to resonance of NG and excessive intake of water. Operative pathology pending Impression/Plan: Postoperative day 2; status post Robert procedure for an obstructing neoplasm distal sigmoid colon. Acceptable postoperative status, awaiting return of bowel function before initiating diet NG and Taylor removed Fentanyl patch reduced 25 g per hour; patient aware Patient encouraged to be active out of bed and continue pulmonary toilet Continue IV Zosyn for intraoperative fecal contamination of the peritoneal cavity Objective Vital Signs - Last 8 Hours Temp Pulse Resp BP Pulse Ox 08/29/17 15:27 16 92 08/29/17 15:16 98.4 F 99 16 122/78 92 Intake and Output 08/29/17 08/29/17 08/29/17 07:59 15:59 23:59 Intake Total 280 / 280 1300 / 1300 Output Total 1250 / 1250 760 / 760 300 / 300 Balance -970 / -970 540 / 540 -300 / -300 Intake: IV Fluids 200 / 200 1300 / 1300 D5% And 0.45% Nacl 1000 Ml Bag 1000 / 1000 1,000 ML @ 100 mls/hr IVC .Q10H ROBIN Rx#:[id number] Zosyn 3.375 GM In 0.9 % Sodium 100 / 100 100 / 100 Chloride 100 ML @ 25 mls/hr IVPB Q8HR ROBIN Rx#:[id number] Potassium Chloride 10 mEq/100mL 100 / 100 200 / 200 10 meq In 100 ml @ 100 mls/hr IVPB Q1H ROBIN Rx#:[id number] Oral 80 / 80 0 / 0 Output: Urine 300 / 300 Stool 100 / 100 300 / 300 Catheter 500 / 500 460 / 460 Gastric Drainage 650 / 650 Other: Meal NPO NPO Stool Consistency liquid soft Stool Color Brown Weight 83.733 kg Blood Glucose* 107 109 107 Patient Weight 08/29/17 23:59 Weight 83.733 kg - Labs 08/29/17 03:15 08/29/17 17:05 Diabetes panel 08/29/17 08/29/17 Range/Units 03:15 17:05 Sodium 137 (136-145) mEq/L Potassium 2.8 L 3.9 D (3.5-5.1) mEq/L Chloride 102 (98-107) mEq/L Carbon Dioxide 29 (23-29) mEq/L BUN 8 (6-20) mg/dL Creatinine 0.69 L (0.70-1.30) mg/dL Glucose 124 H (70-105) mg/dL Calcium 7.9 L (8.6-10.3) mg/dL Calcium panel 08/29/17 Range/Units 03:15 Calcium 7.9 L (8.6-10.3) mg/dL Pituitary panel 08/29/17 08/29/17 Range/Units 03:15 17:05 Sodium 137 (136-145) mEq/L Potassium 2.8 L 3.9 D (3.5-5.1) mEq/L Chloride 102 (98-107) mEq/L Carbon Dioxide 29 (23-29) mEq/L BUN 8 (6-20) mg/dL Creatinine 0.69 L (0.70-1.30) mg/dL Glucose 124 H (70-105) mg/dL Calcium 7.9 L (8.6-10.3) mg/dL Adrenal panel 08/29/17 08/29/17 Range/Units 03:15 17:05 Sodium 137 (136-145) mEq/L Potassium 2.8 L 3.9 D (3.5-5.1) mEq/L Chloride 102 (98-107) mEq/L Carbon Dioxide 29 (23-29) mEq/L BUN 8 (6-20) mg/dL Creatinine 0.69 L (0.70-1.30) mg/dL Glucose 124 H (70-105) mg/dL Calcium 7.9 L (8.6-10.3) mg/dL - VTE Documentation of Mechanical Device: Intermittent pneumatic compression device Consult Discharge Plan - Plan Referrals: Purnima Ordaz, PRODUCT DESIGNER [Primary Care Provider] -
[2017-08-30] MEDS ORDERED: *HR* FentaNYL PATCH 50 MCG PATCH TD SCH (00:45)
[2017-08-30] MEDS: Albuterol 2.5 MG/3 ML NEBULIZER IH SCH ×4 (03:29→21:46)
[2017-08-30] MEDS: *HR* FentaNYL (PF) 100 MCG/2 ML VIAL IVP PRN ×5 (03:40→20:35)
[2017-08-30 04:52] LABS: BUN/Creatinine Ratio 9 (6-26); Blood Urea Nitrogen 6 mg/dL (6-20); Calcium 7.7 mg/dL (8.6-10.3); Carbon Dioxide 24 mEq/L (23-29); Chloride 100 mEq/L (98-107); Glucose 118 mg/dL (70-105); Osmolality,Calculated 273 (280-300); Potassium 2.9 mEq/L (3.5-5.1); Sodium 132 mEq/L (136-145); eGFR For African Americans > 60 (> 60); eGFR For Non-African Americans > 60 (> 60)
[2017-08-30] MEDS: Pantoprazole 40 MG VIAL IVP SCH (05:18)
[2017-08-30] MEDS: *HR* Metoprolol 5 MG/5 ML VIAL IVP SCH ×3 (05:18→16:36)
[2017-08-30 06:42] LABS: Basophils % 0.5 %; Eosinophils # 0.4 K/mcL (0.0-0.6); Hematocrit 31.4 % (37.5-50.1); Hemoglobin 10.6 g/dL (12.9-16.9); Immature Granulocytes % 0.3 % (0-4); Immature Platelets 3.3 % (1.1-6.1); Lymphocytes # 1.1 K/mcL (0.6-4.6); Lymphocytes % 15.8 %; Mean Corpuscular HGB Conc 33.8 g/dL (31.6-35.5); Mean Corpuscular Hemoglobin 31.5 pg (28.0-33.3); Mean Corpuscular Volume 93.2 fL (83.0-100.0); Mean Platelet Volume 9.7 fL (9.4-12.4); Monocytes # 0.6 K/mcL (0.0-1.3); Monocytes % 9.2 %; Neutrophils # 4.6 K/mcL (1.6-8.9); Platelet Count 181 K/mcL (140-400); Red Blood Count 3.37 M/mcL (4.19-5.50); Segmented Neutrophils % 68.2 %
[2017-08-30] MEDS: D5% in 0.45% NACL 1,000 ML IVC SCH (07:59)
--- NOTE | 2017-08-30 10:26 | Internal Med Progress Note ---
<Carley Mckeon - Last Filed: 08/30/17 15:48> Date of Encounter: 08/30/17 Time of Encounter: 09:15 - Assessment and plan (1) Colonic mass Current Visit: Yes Status: Acute Assessment and plan: Plan: POD#3 s/p proctosigmoidectomy/ ainsley's procedure - NG removed yesterday, no N/V today - diet NPO - possible malignancy, onco consulted - pain managed by fentanyl - awaiting path report - continue Zosyn (2) Large bowel obstruction Current Visit: Yes Status: Acute Assessment and plan: Plan: POD#3 s/p proctosigmoidectomy/ ainsley's procedure - NG reomoved - management per surgery - diet: NPO - day #4 Zosyn (3) UTI (urinary tract infection) Current Visit: Yes Status: Ruled-out Assessment and plan: Ruled out Abnormal UA, Urine culture with no growth D/C ceftriaxone Qualifiers: Urinary tract infection type: acute cystitis Hematuria presence: with hematuria Qualified Code(s): N30.01 - Acute cystitis with hematuria (4) Mixed hyperlipidemia Current Visit: Yes Status: Chronic Assessment and plan: History of hyperlipidemia. Holding home Plavix and atorvastatin (5) Tobacco abuse Current Visit: Yes Status: Chronic Assessment and plan: encourage cessation (6) Essential hypertension Current Visit: Yes Status: Chronic Assessment and plan: - Bp well controlled -Metoprolol 5mg IV Q6hr, continue - continue monitoring vitals (7) Tachycardia Current Visit: Yes Status: Acute Assessment and plan: Plan: - patienttachycardia impoving. Max 102 -regular, sinus, EKG 08/27 VR 140, sinus tachy, Possible due to dehydration and pain Repeat EKG 08/28 sinus tachy Continue IVF D5 Strict I/Os (8) Hypokalemia Current Visit: Yes Status: Acute Assessment and plan: today K= 2.9 ( 2.8, 3.9), will replace with 40mg PO and 10mg potassium chloride today. Recheck in the AM. (9) DVT prophylaxis Current Visit: Yes Status: Acute Assessment and plan: ambulating TID and SCIDs (10) Acute blood loss anemia Current Visit: Yes Status: Acute Assessment and plan: currently stable wtih a hgb= 10.6. - Subjective Interval history: Mr. Bedolla is a 57-year-old male past medical history of hypertension, CAD, hyperlipidemia who presented to the ED with constipation and was found to have an obstructing mass in the rectosigmoid. Patient is POD#3 of Ainsley's procedure. This morning patient states that he is feeling better than yesterday. Patient states that he has not been able to get up and walk yet but nurse said she would today. + voiding. Pain well controlled. Patient states that he has been hungry the last 3 nights in the evening but was not currenlty hungry. He said he could eat a couple of bites but not actually hungry. Patient is also desiring to take a shower. Patient denies nausea, vomiting. - Constitutional Vitals: Temp Pulse Resp BP Pulse Ox 98.3 F 92 17 117/72 94 08/30/17 07:15 08/30/17 07:15 08/30/17 07:15 08/30/17 07:15 08/30/17 07:15 General appearance: Present: cooperative, A&O X 3, pleasant, no acute distress, answers questions appropriately - Other Additional findings: Constitutional: Alert, in no acute distress, well nourished, well developed. Head: Normocephalic, atraumatic, Heart: Normal, regular rate and rhythm, no murmurs Lungs: Clear to auscultation, no wheezes, rales, or rhonchi Abdomen: distension present but mildly softer than yesterday, vertical abdominal incision with colostomy back on left with brown semi-solid output, BS present, no guarding or rigidity Extremities: No clubbing, cyanosis, or edema, capillary refill <2sec. Skin: Skin warm and dry, no lesions, no rashes, no jaundice Neurologic: Cranial nerves II through XII grossly intact, no focal deficits, strength within normal limits in all extremities Psych: Cooperative with exam, good eye contact, cognitive function intact, judgment good insight good, speech clear, thought process logical, and goal directed Internal Medicine: Result - Labs CBC & Chem 7: 08/30/17 06:00 08/30/17 04:13 Labs: Short CBC 08/30/17 Range/Units 06:00 WBC 6.7 (4.3-11.1) K/mcL Hgb 10.6 L (12.9-16.9) g/dL Hct 31.4 L (37.5-50.1) % Plt Count 181 (140-400) K/mcL Neutrophils # 4.6 (1.6-8.9) K/mcL BMP 08/29/17 08/30/17 17:05 04:13 Sodium 132 L Potassium 3.9 D 2.9 L D Chloride 100 Carbon Dioxide 24 BUN 6 Creatinine 0.70 Glucose 118 H Calcium 7.7 L - VTE Documentation of Mechanical Device: Intermittent pneumatic compression device Consult Discharge Plan - Plan Referrals: Viet To MD [Non-Partnered Physician] - Purnima Ordaz CNP [Primary Care Provider] - <Alfa Johnston T - Last Filed: 08/30/17 17:16> Date of Encounter: 08/30/17 - Assessment and plan (1) Colonic mass Current Visit: Yes Status: Acute (2) Large bowel obstruction Current Visit: Yes Status: Acute (3) UTI (urinary tract infection) Current Visit: Yes Status: Ruled-out Qualifiers: Urinary tract infection type: acute cystitis Hematuria presence: with hematuria Qualified Code(s): N30.01 - Acute cystitis with hematuria (4) Essential hypertension Current Visit: Yes Status: Chronic (5) Mixed hyperlipidemia Current Visit: Yes Status: Chronic (6) Tobacco abuse Current Visit: Yes Status: Chronic (7) Tachycardia Current Visit: Yes Status: Acute (8) Hypokalemia Current Visit: Yes Status: Acute - Constitutional Vitals: Temp Pulse Resp BP Pulse Ox 98.0 F 93 16 124/83 95 08/30/17 14:59 08/30/17 14:59 08/30/17 16:56 08/30/17 14:59 08/30/17 16:56 Internal Medicine: Result - Labs CBC & Chem 7: 08/30/17 06:00 08/30/17 04:13 Labs: Short CBC 08/30/17 Range/Units 06:00 WBC 6.7 (4.3-11.1) K/mcL Hgb 10.6 L (12.9-16.9) g/dL Hct 31.4 L (37.5-50.1) % Plt Count 181 (140-400) K/mcL Neutrophils # 4.6 (1.6-8.9) K/mcL BMP 08/29/17 08/30/17 17:05 04:13 Sodium 132 L Potassium 3.9 D 2.9 L D Chloride 100 Carbon Dioxide 24 BUN 6 Creatinine 0.70 Glucose 118 H Calcium 7.7 L - Attending Attestation Seen and reviewed no new complains, asking to be fed, pending surgery eval today abdomen is soft, bowel sounds present in all quadrants still hypokalemic, replace, check mag. rest of details as in resident physician's documentation
[2017-08-30] MEDS ORDERED: D5% in 0.45% NACL 1,000 ML IVC SCH ×2 (14:19→18:15)
[2017-08-30 18:03] LABS: BUN/Creatinine Ratio 9 (6-26); Blood Urea Nitrogen 6 mg/dL (6-20); Calcium 8.2 mg/dL (8.6-10.3); Carbon Dioxide 27 mEq/L (23-29); Chloride 101 mEq/L (98-107); Glucose 105 mg/dL (70-105); Osmolality,Calculated 276 (280-300); Potassium 3.4 mEq/L (3.5-5.1); Sodium 134 mEq/L (136-145); eGFR For African Americans > 60 (> 60); eGFR For Non-African Americans > 60 (> 60)
--- NOTE | 2017-08-30 19:13 | General Surgery Progress Note ---
Date of Encounter: 08/30/17 Time of Encounter: 19:06 Subjective Patient reports: feels better, flatus, bowel movement Narrative: General Surgery - POD #3 Patient feeling better; abdominal distention diminished but not completely resolved; no nausea or vomiting. No significant abdominal pain Patient remains afebrile most recently 98.0; pulse 93, respirations 16, blood pressure 124/83. Lungs: Clear Abdomen: Soft with minimal tenderness. Active bowel sounds. Colostomy evident left upper anterior abdominal wall - appears healthy and is functioning properly. Brown semi-formed stool present in the ostomy appliance. Midline incision clean and dry Urine output: 1975 mL so far today. Laboratories: White count 6.7, hemoglobin 10.6, hematocrit 31.4. Differential within normal limits. Potassium 2.9 - after 80 mEq of potassium (40 mEq by mouth and 40 mEq IV) corrected to 3.4. 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 Doing well postop. Patient feeling well; bowel function appears to be returning. Allow full liquid diet. Pain controlled - will discontinue the fentanyl patch opting for oral pain medications. Continue Zosyn for intraoperative fecal contamination of the peritoneal cavity Hypokalemia improved with therapy; continue potassium supplementation Objective Vital Signs - Last 8 Hours Temp Pulse Resp BP Pulse Ox 08/30/17 16:56 16 95 08/30/17 14:59 98.0 F 93 16 124/83 94 Intake and Output 08/30/17 08/30/17 08/30/17 07:59 15:59 23:59 Intake Total 1340 / 1340 400 / 400 120 / 120 Output Total 1275 / 1275 700 / 700 Balance 65 / 65 -300 / -300 120 / 120 Intake: IV Fluids 1100 / 1100 400 / 400 D5% And 0.45% Nacl 1000 Ml Bag 1000 / 1000 1,000 ML @ 100 mls/hr IVC .Q10H [facility] Rx#:[id number] Zosyn 3.375 GM In 0.9 % Sodium 100 / 100 100 / 100 Chloride 100 ML @ 25 mls/hr IVPB Q8HR [facility] Rx#:[id number] Potassium Chloride 10 mEq/100mL 300 / 300 10 meq In 100 ml @ 100 mls/hr IVPB Q1H [facility] Rx#:[id number] Oral 240 / 240 0 / 0 120 / 120 Output: Urine 1275 / 1275 700 / 700 Other: Meal Dinner Percent of Meal Consumed 25% Weight 83.6 kg Blood Glucose* 122 107 Patient Weight 08/30/17 23:59 Weight 83.6 kg - Labs 08/30/17 06:00 08/30/17 17:22 Diabetes panel 08/30/17 08/30/17 Range/Units 04: 17:22 Sodium 132 L 134 L (136-145) mEq/L Potassium 2.9 L D 3.4 L (3.5-5.1) mEq/L Chloride 100 101 (98-107) mEq/L Carbon Dioxide 24 27 (23-29) mEq/L BUN 6 6 (6-20) mg/dL Creatinine 0.70 0.68 L (0.70-1.30) mg/dL Glucose 118 H 105 (70-105) mg/dL Calcium 7.7 L 8.2 L (8.6-10.3) mg/dL Calcium panel 08/30/17 08/30/17 Range/Units 04:13 17:22 Calcium 7.7 L 8.2 L (8.6-10.3) mg/dL Pituitary panel 08/30/17 08/30/17 Range/Units 04:13 17:22 Sodium 132 L 134 L (136-145) mEq/L Potassium 2.9 L D 3.4 L (3.5-5.1) mEq/L Chloride 100 101 (98-107) mEq/L Carbon Dioxide 24 27 (23-29) mEq/L BUN 6 6 (6-20) mg/dL Creatinine 0.70 0.68 L (0.70-1.30) mg/dL Glucose 118 H 105 (70-105) mg/dL Calcium 7.7 L 8.2 L (8.6-10.3) mg/dL Adrenal panel 08/30/17 08/30/17 Range/Units 04:13 17:22 Sodium 132 L 134 L (136-145) mEq/L Potassium 2.9 L D 3.4 L (3.5-5.1) mEq/L Chloride 100 101 (98-107) mEq/L Carbon Dioxide 24 27 (23-29) mEq/L BUN 6 6 (6-20) mg/dL Creatinine 0.70 0.68 L (0.70-1.30) mg/dL Glucose 118 H 105 (70-105) mg/dL Calcium 7.7 L 8.2 L (8.6-10.3) mg/dL - VTE Documentation of Mechanical Device: Intermittent pneumatic compression device Consult Discharge Plan - Plan Referrals: Viet To MD [Non-Partnered Physician] - Purnima Ordaz CNP [Primary Care Provider] -
[2017-08-30] MEDS ORDERED: Acetaminophen 325 MG TABLET PO PRN (19:15)
[2017-08-31] MEDS: *HR* Metoprolol 5 MG/5 ML VIAL IVP SCH ×2 (00:23→05:55)
[2017-08-31] MEDS: *HR* FentaNYL (PF) 100 MCG/2 ML VIAL IVP PRN (00:23)
[2017-08-31] MEDS: Albuterol 2.5 MG/3 ML NEBULIZER IH SCH ×4 (04:26→21:05)
[2017-08-31 05:05] LABS: Basophils % 0.3 %; Eosinophils # 0.3 K/mcL (0.0-0.6); Hematocrit 30.2 % (37.5-50.1); Hemoglobin 10.1 g/dL (12.9-16.9); Immature Granulocytes % 0.2 % (0-4); Lymphocytes % 15.4 %; Mean Corpuscular HGB Conc 33.4 g/dL (31.6-35.5); Mean Corpuscular Hemoglobin 31.2 pg (28.0-33.3); Mean Corpuscular Volume 93.2 fL (83.0-100.0); Mean Platelet Volume 9.6 fL (9.4-12.4); Monocytes # 0.8 K/mcL (0.0-1.3); Monocytes % 13.2 %; Neutrophils # 4.1 K/mcL (1.6-8.9); Platelet Count 181 K/mcL (140-400); Red Blood Count 3.24 M/mcL (4.19-5.50); Segmented Neutrophils % 65.9 %
[2017-08-31 05:10] LABS: BUN/Creatinine Ratio 8 (6-26); Blood Urea Nitrogen 6 mg/dL (6-20); Calcium 8.2 mg/dL (8.6-10.3); Carbon Dioxide 27 mEq/L (23-29); Chloride 101 mEq/L (98-107); Glucose 125 mg/dL (70-105); Osmolality,Calculated 279 (280-300); Potassium 3.3 mEq/L (3.5-5.1); Sodium 135 mEq/L (136-145); eGFR For African Americans > 60 (> 60); eGFR For Non-African Americans > 60 (> 60)
[2017-08-31] MEDS: Pantoprazole 40 MG VIAL IVP SCH (05:55)
[2017-08-31] MEDS: *HR* OxyCODONE/APAP 5/325 TABLET PO PRN ×3 (06:16→21:11)
--- NOTE | 2017-08-31 10:30 | General Surgery Progress Note ---
Date of Encounter: 08/31/17 Time of Encounter: 10:24 Subjective Patient reports: no new complaints, tolerating liquids well Narrative: General Surgery - POD #4 Patient feeling well; no recurrent abdominal distention, no nausea/vomiting. Tolerating full liquids. Patient remained afebrile; pulse 89, respirations 15, blood pressure 129/79. Still requiring supplemental O2; SPO2 on 2 L/m nasal cannula 93% Lungs: Clear Abdomen: Soft, minimal alva-incisional tenderness. Midline incision clean and dry. stoma left upper anterior abdominal wall healthy and functioning properly Urine output 2625 mL in the last 24 hours. 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 Doing well Pathology still pending Recurrent/persistent hypokalemia which will be addressed Plan: Advance diet volunteer services assistant to arrange for home health and continued teaching/care of the patient's colostomy D/C IV fluids but continue IV antibiotics Oral potassium to address hypokalemia Patient may resume home meds Objective Vital Signs - Last 8 Hours Temp Pulse Resp BP Pulse Ox 08/31/17 10:04 98 F 89 15 129/79 93 08/31/17 06:44 98.1 F 83 15 121/74 93 08/31/17 05:57 75 116/70 08/31/17 04:37 98.2 F 90 15 144/74 91 08/31/17 04:27 18 95 Intake and Output 08/30/17 08/31/17 08/31/17 23:59 07:59 15:59 Intake Total 220 / 220 300 / 300 780 / 780 Output Total 650 / 650 1540 / 1540 400 / 400 Balance -430 / -430 -1240 / -1240 380 / 380 Intake: IV Fluids 100 / 100 100 / 100 Zosyn 3.375 GM In 0.9 % Sodium 100 / 100 100 / 100 Chloride 100 ML @ 25 mls/hr IVPB Q8HR [facility] Rx#:[id number] Oral 120 / 120 200 / 200 780 / 780 Output: Urine 650 / 650 1540 / 1540 400 / 400 Other: Meal Dinner Full Percent of Meal Consumed 25% Weight 84.1 kg Patient Weight 08/31/17 23:59 Weight 84.1 kg - Labs 08/31/17 04:20 08/31/17 04:20 Diabetes panel 08/30/17 08/31/17 Range/Units 17:22 04:20 Sodium 134 L 135 L (136-145) mEq/L Potassium 3.4 L 3.3 L (3.5-5.1) mEq/L Chloride 101 101 (98-107) mEq/L Carbon Dioxide 27 27 (23-29) mEq/L BUN 6 6 (6-20) mg/dL Creatinine 0.68 L 0.72 (0.70-1.30) mg/dL Glucose 105 125 H (70-105) mg/dL Calcium 8.2 L 8.2 L (8.6-10.3) mg/dL Calcium panel 08/30/17 08/31/17 Range/Units 17:22 04:20 Calcium 8.2 L 8.2 L (8.6-10.3) mg/dL Pituitary panel 08/30/17 08/31/17 Range/Units 17:22 04:20 Sodium 134 L 135 L (136-145) mEq/L Potassium 3.4 L 3.3 L (3.5-5.1) mEq/L Chloride 101 101 (98-107) mEq/L Carbon Dioxide 27 27 (23-29) mEq/L BUN 6 6 (6-20) mg/dL Creatinine 0.68 L 0.72 (0.70-1.30) mg/dL Glucose 105 125 H (70-105) mg/dL Calcium 8.2 L 8.2 L (8.6-10.3) mg/dL Adrenal panel 08/30/17 08/31/17 Range/Units 17:22 04:20 Sodium 134 L 135 L (136-145) mEq/L Potassium 3.4 L 3.3 L (3.5-5.1) mEq/L Chloride 101 101 (98-107) mEq/L Carbon Dioxide 27 27 (23-29) mEq/L BUN 6 6 (6-20) mg/dL Creatinine 0.68 L 0.72 (0.70-1.30) mg/dL Glucose 105 125 H (70-105) mg/dL Calcium 8.2 L 8.2 L (8.6-10.3) mg/dL - VTE Documentation of Mechanical Device: Intermittent pneumatic compression device Consult Discharge Plan - Plan Referrals: Viet To MD [Non-Partnered Physician] - Purnima Ordaz CNP [Primary Care Provider] -
--- NOTE | 2017-08-31 14:45 | Internal Med Progress Note ---
<AdrianusMarciovicente - Last Filed: 08/31/17 14:42> Date of Encounter: 08/31/17 Time of Encounter: 14:43 - Assessment and plan (1) Large bowel obstruction Current Visit: Yes Status: Acute Assessment and plan: Patient arrived with bowel obstruction secondary to obstructing mass. POD#4 s/p Robert procedure for obstructing neoplasm of distal sigmoid colon with colostomy. patient continues to feel well with appropriate bowel function. Plan: zosyn day 4 for intraoperative fecal contamination of peritoneal cavity. continue potassium supplementation PRN continue regular diet as tolerated. dependency case manager organizing home health and continued teaching to care for colostomy. resumed home meds today. discharge planning in progress. (2) Colonic mass Current Visit: Yes Status: Acute Assessment and plan: plan as above (3) Acute blood loss anemia Current Visit: Yes Status: Acute Assessment and plan: drop in Hg after surgery likely secondary to acute blood loss anemia from surgery. continue to monitor. H/H has remained stable thus far. (4) Mixed hyperlipidemia Current Visit: Yes Status: Chronic Assessment and plan: History of hyperlipidemia. continue plavix, atorvastatin (5) Tobacco abuse Current Visit: Yes Status: Chronic Assessment and plan: smoking cessation advised (6) Essential hypertension Current Visit: Yes Status: Chronic Assessment and plan: changed from IV to oral meds today. (7) Hypokalemia Current Visit: Yes Status: Acute Assessment and plan: continue potassium supplementation as needed. Mg today 2.2 (8) DVT prophylaxis Current Visit: Yes Status: Acute Assessment and plan: ambulate TID EPCD - Subjective Interval history: 57-year-old male evaluated at bedside. Patient denies nausea, vomiting, diarrhea, fever, chills, chest pain, shortness of breath. He states that he is feeling well today, and is tolerating a regular diet pretty well. He denies any complaints today. - Constitutional Vitals: Temp Pulse Resp BP Pulse Ox 98 F 89 15 129/79 93 08/31/17 10:04 08/31/17 10:04 08/31/17 10:04 08/31/17 10:04 08/31/17 10:04 General appearance: Present: cooperative, A&O X 3, pleasant, no acute distress, answers questions appropriately - Head Head exam: Present: atraumatic, normocephalic - Neck Neck exam general surgery: Present: supple, trachea midline - Respiratory Respiratory exam: Present: CTAB - Cardiovascular Cardiovascular exam: Present: RRR, +S1, +S2 - GI/Abdominal GI/Abdominal exam: Present: normal bowel sounds, soft. Absent: distended, tenderness Additional comments: surgical scars clean, dry, intact. colostomy in place. - Extremities Exam Extremities exam: Absent: cyanotic, pedal edema - Neurological Exam Neurological exam: Present: alert, oriented X3, no focal deficits - Psychiatric Psychiatric exam: Present: normal affect, normal mood - Skin Skin exam: Present: intact Internal Medicine: Result - Labs CBC & Chem 7: 08/31/17 04:20 08/31/17 04:20 Labs: Short CBC 08/31/17 Range/Units 04:20 WBC 6.2 (4.3-11.1) K/mcL Hgb 10.1 L (12.9-16.9) g/dL Hct 30.2 L (37.5-50.1) % Plt Count 181 (140-400) K/mcL Neutrophils # 4.1 (1.6-8.9) K/mcL BMP 08/30/17 08/31/17 17:22 04:20 Sodium 134 L 135 L Potassium 3.4 L 3.3 L Chloride 101 101 Carbon Dioxide 27 27 BUN 6 6 Creatinine 0.68 L 0.72 Glucose 105 125 H Calcium 8.2 L 8.2 L - VTE Documentation of Mechanical Device: Intermittent pneumatic compression device Consult Discharge Plan - Plan Referrals: Viet To MD [Non-Partnered Physician] - Purnima Ordaz CNP [Primary Care Provider] - <Orlin Baires - Last Filed: 08/31/17 19:09> Date of Encounter: 08/31/17 - Constitutional Vitals: Temp Pulse Resp BP Pulse Ox 98.2 F 88 16 142/88 96 08/31/17 16:02 08/31/17 16:02 08/31/17 16:48 08/31/17 16:02 08/31/17 16:48 Internal Medicine: Result - Labs CBC & Chem 7: 08/31/17 04:20 08/31/17 04:20 Labs: Short CBC 08/31/17 Range/Units 04:20 WBC 6.2 (4.3-11.1) K/mcL Hgb 10.1 L (12.9-16.9) g/dL Hct 30.2 L (37.5-50.1) % Plt Count 181 (140-400) K/mcL Neutrophils # 4.1 (1.6-8.9) K/mcL BMP 08/31/17 04:20 Sodium 135 L Potassium 3.3 L Chloride 101 Carbon Dioxide 27 BUN 6 Creatinine 0.72 Glucose 125 H Calcium 8.2 L - Attending Attestation I examined this patient and my medical decision-making was reviewed with the Resident Physician. I agree with the documented findings, disposition and treatment plan as described except to the extent set forth below.
[2017-08-31] MEDS ORDERED: Metoprolol XL (24 HR) Succ 25 MG TAB.ER.24H PO SCH (21:00)
[2017-09-01] MEDS: Albuterol 2.5 MG/3 ML NEBULIZER IH SCH ×4 (03:55→22:30)
--- NOTE | 2017-09-01 08:11 | Internal Med Progress Note ---
<Carley Mckeon - Last Filed: 09/01/17 15:21> Date of Encounter: 09/01/17 Time of Encounter: 11:30 - Assessment and plan (1) Adenocarcinoma of colon Current Visit: Yes Status: Acute Assessment and plan: Plan: POD#5 s/p proctosigmoidectomy/ ainsley's procedure with a pathology report showing adenocarcinoma - diet regular, tolerating well without n/v - discussed with onco about pathology report - pain managed by fentanyl (2) Large bowel obstruction Current Visit: Yes Status: Resolved Assessment and plan: Patient arrived with bowel obstruction secondary to obstructing mass. POD#5 s/p Ainsley procedure for obstructing neoplasm of distal sigmoid colon with colostomy. patient continues to feel well with appropriate bowel function. Plan: -continue zosyn started 2/, for intraoperative fecal contamination of peritoneal cavity. - continue potassium supplementation, 40mg PO daily - continue regular diet as tolerated. 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 - resumed home meds 2 (3) UTI (urinary tract infection) Current Visit: Yes Status: Ruled-out Assessment and plan: Ruled out Abnormal UA, Urine culture with no growth D/C ceftriaxone Qualifiers: Urinary tract infection type: acute cystitis Hematuria presence: with hematuria Qualified Code(s): N30.01 - Acute cystitis with hematuria (4) Mixed hyperlipidemia Current Visit: Yes Status: Chronic Assessment and plan: History of hyperlipidemia. continue plavix, atorvastatin (5) Tobacco abuse Current Visit: Yes Status: Chronic Assessment and plan: smoking cessation advised (6) Essential hypertension Current Visit: Yes Status: Chronic Assessment and plan: changed from IV to oral meds today. (7) Tachycardia Current Visit: Yes Status: Acute Assessment and plan: Plan: - patient tachycardia reoccurred but patient diagnosed with pneumonia today so most likely 2/2 infection -regular, sinus, EKG 08/27 VR 140, sinus tachy, Possible due to dehydration and pain Repeat EKG 08/28 sinus tachy Continue IVF D5 Strict I/Os (8) Hypokalemia Current Visit: Yes Status: Acute Assessment and plan: Potassium 3.4 today, continue to supplement with 40mg oral. Mg 2.2 (9) DVT prophylaxis Current Visit: Yes Status: Acute Assessment and plan: ambulate TID EPCD (10) Acute blood loss anemia Current Visit: Yes Status: Acute Assessment and plan: drop in Hg after surgery likely secondary to acute blood loss anemia from surgery. continue to monitor. H/H has remained stable thus far and is improving. (11) Hospital-acquired pneumonia Current Visit: Yes Status: Acute Assessment and plan: CXR showed possible pneumonia. Patient had a spike in temperature up to 100.6F. UA negative. Blood cultures pending. He has been in the hospital 6 days. PE showed no respiratory distress but patient does have crackles in the bases. Patient is currently feeling better and afebrile. Plan: - antibiotics: Levoquin and Vanco started today (09/01), already on Zosyn since - Blood cultures pending - will await blood cultures for discharge - Subjective Interval history: Mr. Bedolla is a 57-year-old male past medical history of hypertension, CAD, hyperlipidemia who presented to the ED with constipation and was found to have an obstructing mass in the rectosigmoid. Patient is POD#4 of Ainsley's procedure. Overnight patient had a fever to 100.6 F and chest x-ray, UA, and blood cultures were obtained this morning. CXR showed pneumonia. This morning patient states that he is feeling better than last night. Patient admits to cough. patient has been ambulating around the halls about 30 minutes a day. Pain well controlled. He has been tolerating advancement diet to regular food without nausea or vomiting Patient was informed of his diagnosis of adenocarcinoma today and handled the news well. His significant other had more anxiety with the news than he was externally showing. His remarks were positive at the end of our conversation. - Constitutional Vitals: Temp Pulse Resp BP Pulse Ox 99.0 F 110 16 130/84 93 09/01/17 06:40 09/01/17 06:40 09/01/17 06:40 09/01/17 06:40 09/01/17 06:40 General appearance: Present: cooperative, A&O X 3, pleasant, no acute distress, answers questions appropriately - Other Additional findings: Constitutional: Alert, in no acute distress, well nourished, well developed. Head: Normocephalic, atraumatic, Heart: Normal, regular rate and rhythm, no murmurs Lungs: Clear to auscultation, no wheezes, rales, or rhonchi Abdomen: distension present, vertical abdominal incision with colostomy back on left with brown semi-solid output, incision without signs of infection, BS present, no guarding or rigidity Extremities: No clubbing, cyanosis, or edema, capillary refill <2sec. Skin: Skin warm and dry, no lesions, no rashes, no jaundice Neurologic: Cranial nerves II through XII grossly intact, no focal deficits, ambulating the halls without deficits Psych: Cooperative with exam, good eye contact, cognitive function intact, judgment good insight good, speech clear, thought process logical, and goal directed Internal Medicine: Result - Labs CBC & Chem 7: 09/01/17 08:33 09/01/17 08:33 Labs: BMP 09/01/17 04:32 Potassium 3.4 L - VTE Documentation of Mechanical Device: Intermittent pneumatic compression device Consult Discharge Plan - Plan Referrals: Viet To MD [Non-Partnered Physician] - Purnima Ordaz CNP [Primary Care Provider] - <Orlin Baires - Last Filed: 09/01/17 17:44> Date of Encounter: 09/01/17 - Constitutional Vitals: Temp Pulse Resp BP Pulse Ox 97.4 F L 101 20 131/86 95 09/01/17 13:41 09/01/17 13:41 09/01/17 15:34 09/01/17 13:41 09/01/17 15:34 Internal Medicine: Result - Labs CBC & Chem 7: 09/01/17 08:33 09/01/17 08:33 Labs: Short CBC 09/01/17 Range/Units 08:33 WBC 9.2 (4.3-11.1) K/mcL Hgb 11.2 L (12.9-16.9) g/dL Hct 34.1 L (37.5-50.1) % Plt Count 222 (140-400) K/mcL Neutrophils # 7.3 (1.6-8.9) K/mcL BMP 09/01/17 09/01/17 04:32 08:33 Potassium 3.4 L BUN 7 Creatinine 0.79 Urine 09/01/17 Range/Units 09:47 Urine Color Yellow (Yellow) Urine Clarity Clear (Clear) Urine pH 7.0 (5.0-8.0) pH Units Ur Specific [place] 1.019 (1.010-1.025) Urine Protein Trace (Neg-Trace) mg/dL Urine Glucose (UA) Normal (Normal) mg/dL - Impressions Impressions Chest X-Ray 09/01/17 06:41 IMPRESSION: Bibasilar airspace opacities concerning for multifocal pneumonia. Possible small bilateral pleural effusions. Follow-up to resolution is recommended. D/ / Yu Matson MD / Yu Matson MD Interpreting Provider: Yu Matson MD - Attending Attestation I examined this patient and my medical decision-making was reviewed with the Resident Physician. I agree with the documented findings, disposition and treatment plan as described except to the extent set forth below. She is doing much better, we have broadened the antibiotics given what may be nosocomial pneumonia. Mentally, he is doing well with the new diagnosis of cancer. This is Dr. Waqas Baires
[2017-09-01 08:47] LABS: Basophils % 0.3 %; Eosinophils # 0.3 K/mcL (0.0-0.6); Eosinophils % 3.3 %; Hematocrit 34.1 % (37.5-50.1); Hemoglobin 11.2 g/dL (12.9-16.9); Immature Granulocytes % 0.4 % (0-4); Lymphocytes # 0.6 K/mcL (0.6-4.6); Lymphocytes % 6.9 %; Mean Corpuscular HGB Conc 32.8 g/dL (31.6-35.5); Mean Corpuscular Hemoglobin 30.4 pg (28.0-33.3); Mean Corpuscular Volume 92.7 fL (83.0-100.0); Mean Platelet Volume 9.4 fL (9.4-12.4); Monocytes # 0.9 K/mcL (0.0-1.3); Monocytes % 10.2 %; Neutrophils # 7.3 K/mcL (1.6-8.9); Platelet Count 222 K/mcL (140-400); Red Blood Count 3.68 M/mcL (4.19-5.50); Red Cell Distribution Width 13.2 % (11.5-14.5); Segmented Neutrophils % 78.9 %
[2017-09-01] MEDS: *HR* OxyCODONE/APAP 5/325 TABLET PO PRN ×2 (08:52→16:44)
[2017-09-01] MEDS ORDERED: Vancomycin 1 EACH in 0.9 % Sodium Chloride 250 ML IVPB SCH (09:00)
[2017-09-01 09:56] LABS: Bilirubin,Urine Negative (Negative); Blood,Urine Negative (Negative); Clarity,Urine Clear (Clear); Color,Urine Yellow (Yellow); Glucose,Urine (UA) Normal (Normal); Ketones,Urine Negative (Negative); Leukocyte Esterase,Urine Negative (Negative); Nitrite,Urine Negative (Negative); Protein,Urine Trace mg/dL (Neg-Trace); Specific Gravity,Urine 1.019 (1.010-1.025); Urobilinogen,Urine Normal (Normal)
[2017-09-01 10:02] LABS: Bacteria,Urine None Seen per hpf (None-Few); Hyaline Casts,Urine None Seen per lpf (None-Few); Squamous Epithelial Cell,Urine Moderate per lpf (None-Few); WBC,Urine 0-3 per hpf (0-3)
[2017-09-01] MEDS: Levofloxacin 750 MG/150 ML 750 MG/150 ML BAG IVPB SCH (10:11)
[2017-09-01 11:07] LABS: BUN/Creatinine Ratio 9 (6-26); Blood Urea Nitrogen 7 mg/dL (6-20); eGFR For African Americans > 60 (> 60); eGFR For Non-African Americans > 60 (> 60)
--- NOTE | 2017-09-01 13:51 | General Surgery Progress Note ---
Date of Encounter: 09/01/17 Time of Encounter: 13:10 Subjective Narrative: General Surgery - POD #5 Patient febrile to 100.6 the night; newly diagnosed pneumonia Patient tolerating diet, no abdominal distention or pain. Colostomy healthy and functioning properly. Midline incision clean and dry. Urine output 2625 mL per calendar day 08/30/17; 2240 mL so far today Labs: White count 9.2, hemoglobin 11.2 with hematocrit 34.1 (improved as patient mobilizes perioperative fluids) Potassium remains low at 3.4 Recommendations: Regular diet; discontinue IV fluids ATB per Hospitalist Service Objective Vital Signs - Last 8 Hours Temp Pulse Resp BP Pulse Ox 09/01/17 13:41 97.4 F L 101 24 131/86 97 09/01/17 10:57 20 95 09/01/17 10:47 98.2 F 94 22 134/80 94 09/01/17 06:40 99.0 F 110 16 130/84 93 Intake and Output 08/31/17 09/01/17 09/01/17 23:59 07:59 15:59 Intake Total 100 / 100 100 / 100 0 / 0 Output Total 300 / 300 1275 / 1275 1650 / 1650 Balance -200 / -200 -1175 / -1175 -1650 / -1650 Intake: IV Fluids 100 / 100 100 / 100 Zosyn 3.375 GM In 0.9 % Sodium 100 / 100 100 / 100 Chloride 100 ML @ 25 mls/hr IVPB Q8HR [facility] Rx#:[id number] Oral 0 / 0 0 / 0 Output: Urine 300 / 300 575 / 575 900 / 900 Stool 700 / 700 750 / 750 Other: Meal Lunch Percent of Meal Consumed 25% Stool Characteristics Foamy Stool Color Brown Weight 84.5 kg Patient Weight 09/01/17 23:59 Weight 84.5 kg - Labs 09/01/17 08:33 09/01/17 08:33 Diabetes panel 09/01/17 09/01/17 Range/Units 04:32 08:33 Potassium 3.4 L (3.5-5.1) mEq/L BUN 7 (6-20) mg/dL Creatinine 0.79 (0.70-1.30) mg/dL Pituitary panel 09/01/17 09/01/17 Range/Units 04:32 08:33 Potassium 3.4 L (3.5-5.1) mEq/L BUN 7 (6-20) mg/dL Creatinine 0.79 (0.70-1.30) mg/dL Adrenal panel 09/01/17 09/01/17 Range/Units 04:32 08:33 Potassium 3.4 L (3.5-5.1) mEq/L BUN 7 (6-20) mg/dL Creatinine 0.79 (0.70-1.30) mg/dL - VTE Documentation of Mechanical Device: Intermittent pneumatic compression device Consult Discharge Plan - Plan Referrals: Viet To MD [Non-Partnered Physician] - Purnima Ordaz CNP [Primary Care Provider] -
--- NOTE | 2017-09-01 18:27 | Oncology Inp Progress Note ---
Date of Encounter: 09/03/17 Time of Encounter: 18:19 (1) Sigmoid colon ulcer Current Visit: Yes Status: Acute (2) Adenocarcinoma of sigmoid colon Current Visit: Yes Status: Acute Assessment and plan: Preoperative CEA 2.8 08/25/2017. CT abdomen and pelvis with contrast was negative for metastasis 08/25/[address] hoover 08/27/2017 for rectosigmoid carcinoma Pathology showed tumor size 3 cm. 0 of 16 lymph nodes involved. No peritoneal deposit. No lymphovascular invasion. Grade 2. It was staged as stage IIIB. But given no lymph node involvement may be stage II. I discussed with Dr. Guerra pathology She found multiple peritoneal nodules on the surface of the colon which is away from the wall. That's why N1 c Discussed with the patient in detail. Arrange for CT chest as an outpatient. Oncology: Subj Interval history: he is a recovering from sigmoid colon resection. Low-grade fever and pneumonia on antibiotics vancomycin and Zosyn. Temporary left lower colostomy functioning well - Constitutional Vitals: Vital Signs Temp Pulse Resp BP Pulse Ox 09/01/17 15:34 20 95 09/01/17 13:41 97.4 F L 101 24 131/86 97 09/01/17 10:57 20 95 09/01/17 10:47 98.2 F 94 22 134/80 94 09/01/17 06:40 99.0 F 110 16 130/84 93 09/01/17 05:02 100.6 F H 102 14 134/87 92 08/31/17 21:07 16 91 08/31/17 19:33 98.1 F 103 16 137/92 91 Intake and Output 09/01/17 09/01/17 09/01/17 07:59 15:59 23:59 Intake Total 100 / 100 100 / 100 Output Total 1275 / 1275 2125 / 2125 Balance -1175 / -1175 -2024 / -2024 Intake: IV Fluids 100 / 100 100 / 100 Zosyn 3.375 GM In 0.9 % Sodium 100 / 100 100 / 100 Chloride 100 ML @ 25 mls/hr IVPB Q8HR [facility] Rx#:[id number] Oral 0 / 0 0 / 0 Output: Urine 575 / 575 1075 / 1075 Stool 700 / 700 1050 / 1050 Other: Meal Lunch Percent of Meal Consumed 25% Stool Characteristics Foamy Stool Color Brown Weight 84.5 kg Patient Weight 09/01/17 23:59 Weight 84.5 kg Oncology: Obj Data - Labs CBC & Chem 7: 09/02/17 02:46 09/03/17 05:18 Labs: Laboratory Results - last 24 hr 09/01/17 09/01/17 09/01/17 04:32 08:33 08:33 WBC 9.2 RBC 3.68 L Hgb 11.2 L Hct 34.1 L MCV 92.7 MCH 30.4 MCHC 32.8 RDW 13.2 Plt Count 222 MPV 9.4 Immature Gran % 0.4 Seg Neutrophils % 78.9 Lymphocytes % 6.9 Monocytes % 10.2 Eosinophils % 3.3 Basophils % 0.3 Neutrophils # 7.3 Lymphocytes # 0.6 Monocytes # 0.9 Eosinophils # 0.3 Basophils # 0.0 Potassium 3.4 L BUN 7 Creatinine 0.79 Est GFR ( Amer) > 60 Est GFR (Non-Af Amer) > 60 BUN/Creatinine Ratio 9 Urine Color Urine Clarity Urine pH Ur Specific [place] Urine Protein Urine Glucose (UA) Urine Ketones Urine Blood Urine Nitrite Urine Bilirubin Urine Urobilinogen Ur Leukocyte Esterase Urine Microscopic RBC Urine Microscopic WBC Ur Squamous Epith Cells Urine Bacteria Hyaline Casts Ur Culture Indicated? 09/01/17 09:47 WBC RBC Hgb Hct MCV MCH MCHC RDW Plt Count MPV Immature Gran % Seg Neutrophils % Lymphocytes % Monocytes % Eosinophils % Basophils % Neutrophils # Lymphocytes # Monocytes # Eosinophils # Basophils # Potassium BUN Creatinine Est GFR ( Amer) Est GFR (Non-Af Amer) BUN/Creatinine Ratio Urine Color Yellow Urine Clarity Clear Urine pH 7.0 Ur Specific [place] 1.019 Urine Protein Trace Urine Glucose (UA) Normal Urine Ketones Negative Urine Blood Negative Urine Nitrite Negative Urine Bilirubin Negative Urine Urobilinogen Normal Ur Leukocyte Esterase Negative Urine Microscopic RBC 3-5 H Urine Microscopic WBC 0-3 Ur Squamous Epith Cells Moderate H Urine Bacteria None Seen Hyaline Casts None Seen Ur Culture Indicated? NO - Impressions Impressions Chest X-Ray 09/01/17 06:41 IMPRESSION: Bibasilar airspace opacities concerning for multifocal pneumonia. Possible small bilateral pleural effusions. Follow-up to resolution is recommended. D/ / Yu Matson MD / Yu Matson MD Interpreting Provider: Yu Matson MD Consult Discharge Plan - Plan Referrals: Viet Hoover MD [Non-Partnered Physician] - (Call office on Tuesday to schedule follow up appointment.) Prescriptions: levoFLOXacin [Levaquin] 750 mg PO DAILY 10 Days #10 tablet
[2017-09-02 03:30] LABS: Hematocrit 31.4 % (37.5-50.1); Hemoglobin 10.4 g/dL (12.9-16.9); Immature Granulocytes % 0.3 % (0-4); Lymphocytes % 7.7 %; Mean Corpuscular HGB Conc 33.1 g/dL (31.6-35.5); Mean Corpuscular Hemoglobin 30.7 pg (28.0-33.3); Mean Corpuscular Volume 92.6 fL (83.0-100.0); Mean Platelet Volume 9.7 fL (9.4-12.4); Monocytes % 10.6 %; Platelet Count 231 K/mcL (140-400); Red Blood Count 3.39 M/mcL (4.19-5.50); Red Cell Distribution Width 13.2 % (11.5-14.5); Segmented Neutrophils % 76.3 %
[2017-09-02 03:31] LABS: Basophils % 0.3 %; Eosinophils # 0.4 K/mcL (0.0-0.6); Eosinophils % 4.8 %; Lymphocytes # 0.7 K/mcL (0.6-4.6); Neutrophils # 7.1 K/mcL (1.6-8.9)
[2017-09-02 03:54] LABS: BUN/Creatinine Ratio 8 (6-26); Blood Urea Nitrogen 6 mg/dL (6-20); Calcium 8.3 mg/dL (8.6-10.3); Carbon Dioxide 24 mEq/L (23-29); Chloride 101 mEq/L (98-107); Glucose 95 mg/dL (70-105); Osmolality,Calculated 277 (280-300); Potassium 3.3 mEq/L (3.5-5.1); Sodium 135 mEq/L (136-145); eGFR For African Americans > 60 (> 60); eGFR For Non-African Americans > 60 (> 60)
[2017-09-02] MEDS: Albuterol 2.5 MG/3 ML NEBULIZER IH SCH ×4 (03:56→22:19)
[2017-09-02] MEDS: Levofloxacin 750 MG/150 ML 750 MG/150 ML BAG IVPB SCH (08:03)
--- NOTE | 2017-09-02 09:38 | Internal Med Progress Note ---
Date of Encounter: 09/02/17 Time of Encounter: 09:31 - Assessment and plan (1) Mixed hyperlipidemia Current Visit: Yes Status: Chronic Assessment and plan: Chronic we will continue home medication (2) Essential hypertension Current Visit: Yes Status: Chronic Assessment and plan: Chronic and well controlled (3) Bowel obstruction Current Visit: Yes Status: Acute Assessment and plan: Patient underwent surgery and recovering well Qualifiers: Intestinal obstruction type: other intestinal obstruction Intestinal obstruction extent: partial Qualified Code(s): K56.690 - Other partial intestinal obstruction (4) CAD (coronary artery disease) Current Visit: Yes Status: Chronic Assessment and plan: No chest pain Qualifiers: Coronary Disease-Associated Artery/Lesion type: [place] artery [place] vs. transplanted heart: [place] heart Associated angina: without angina Qualified Code(s): I25.10 - Atherosclerotic heart disease of [place] coronary artery without angina pectoris (5) UTI (urinary tract infection) Current Visit: Yes Status: Ruled-out Assessment and plan: Resolved, shows a negative Rocephin discontinued Qualifiers: Urinary tract infection type: acute cystitis Hematuria presence: with hematuria Qualified Code(s): N30.01 - Acute cystitis with hematuria (6) Colonic mass Current Visit: Yes Status: Acute Assessment and plan: Time out to be adenocarcinoma oncology is following so far no evidence of metastasis (7) Hypokalemia Current Visit: Yes Status: Acute (8) Adenocarcinoma of colon Current Visit: Yes Status: Acute Assessment and plan: Surgery and oncology following (9) Hospital-acquired pneumonia Current Visit: Yes Status: Acute Assessment and plan: Patient given vancomycin and started on Levaquin patient is afebrile no chills white count is normal blood culture pending - Subjective Interval history: Patient with history of hypertension, CAD, high cholesterol, admitted with bowel obstruction secondary to sigmoid mass final diagnosis of adenocarcinoma. Patient being followed by surgery the bowel obstruction has resolved he underwent surgery oncology following as well yesterday he had fever chest x rayv suggestive of pneumonia given vancomycin and started on Levaquin IV t his will be day 2 day of the IV antibiotic culture was pending from blood culture plan on discharged home tomorrow on Levaquin he is not coughing up anything afebrile no chills white count is normal - Constitutional Vitals: Temp Pulse Resp BP Pulse Ox 97.9 F 98 18 118/81 93 09/02/17 08:04 09/02/17 08:04 09/02/17 08:04 09/02/17 08:04 09/02/17 08:04 General appearance: Present: cooperative, A&O X 3, pleasant, no acute distress, answers questions appropriately - Eye Eye exam: Present: PERRL, conjuntiva pink, sclera anicteric Pupils: Present: PERRL - Neck Neck exam general surgery: Present: supple, trachea midline. Absent: lymphadenopathy - Respiratory Respiratory exam: Present: rhonchi - Cardiovascular Cardiovascular exam: Present: RRR, +S1, +S2. Absent: diastolic murmur, gallop, rubs, systolic murmur - GI/Abdominal GI/Abdominal exam: Present: soft Additional comments: incision noted looks good - Extremities Exam Extremities exam: Present: warm, radial pulses palpable and symmetrical. Absent : calf tenderness, cyanotic, pedal edema Internal Medicine: Result - Labs CBC & Chem 7: 09/02/17 02:46 09/02/17 02:46 Labs: Short CBC 09/02/17 Range/Units 02:46 WBC 9.3 (4.3-11.1) K/mcL Hgb 10.4 L (12.9-16.9) g/dL Hct 31.4 L (37.5-50.1) % Plt Count 231 (140-400) K/mcL Neutrophils # 7.1 (1.6-8.9) K/mcL BMP 09/01/17 09/02/17 08:33 02:46 Sodium 135 L Potassium 3.3 L Chloride 101 Carbon Dioxide 24 BUN 7 6 Creatinine 0.79 0.80 Glucose 95 Calcium 8.3 L Urine 09/01/17 Range/Units 09:47 Urine Color Yellow (Yellow) Urine Clarity Clear (Clear) Urine pH 7.0 (5.0-8.0) pH Units Ur Specific [place] 1.019 (1.010-1.025) Urine Protein Trace (Neg-Trace) mg/dL Urine Glucose (UA) Normal (Normal) mg/dL - VTE Documentation of Mechanical Device: Intermittent pneumatic compression device Consult Discharge Plan - Plan Referrals: Viet To MD [Non-Partnered Physician] - Purnima Ordaz CNP [Primary Care Provider] -
[2017-09-02] MEDS ORDERED: Aminoglycoside Consult 1 EACH MC ONE (11:34)
--- NOTE | 2017-09-02 16:02 | General Surgery Progress Note ---
Date of Encounter: 09/02/17 Time of Encounter: 15:57 Subjective Narrative: General Surgery - POD #6 Patient feeling well, voicing no complaints. Afebrile, 98.3, pulse 98-99; respiratory rate 1618; blood pressure 113/74 Lungs: Clear; no obvious pain on deep inspiration; satisfactory inspiratory effort Abdomen: Soft, nontender. Midline incision clean and dry. Ostomy in the left upper quadrant is healthy and functioning properly. Patient tolerating regular diet, no nausea, vomiting, or cramping abdominal pain. Laboratories: White count 9.3, hemoglobin 10.4 with hematocrit 31.4; furniture within normal limits Electrolytes notable for sodium stable at 135, potassium has diminished slightly to 3.3; BUN and creatinine normal Impression: Postoperative day #6, status post Robert procedure for obstructing moderately differentiated adenocarcinoma distal sigmoid colon. Acceptable postoperative status Postoperative pneumonia versus atelectasis Hypokalemia- have increased oral potassium supplementation to twice a day Objective Vital Signs - Last 8 Hours Temp Pulse Resp BP Pulse Ox 09/02/17 11:56 98.3 F 99 18 113/74 93 09/02/17 10:43 16 98 09/02/17 08:04 97.9 F 98 18 118/81 93 Intake and Output 09/01/17 09/02/17 09/02/17 23:59 07:59 15:59 Intake Total 300 / 300 350 / 350 0 / 0 Output Total 625 / 625 1150 / 1150 1450 / 1450 Balance -325 / -325 -800 / -800 -1450 / -1450 Intake: IV Fluids 100 / 100 350 / 350 Zosyn 3.375 GM In 0.9 % Sodium 100 / 100 100 / 100 Chloride 100 ML @ 25 mls/hr IVPB Q8HR [facility] Rx#:[id number] Vancocin 1,250 MG In 0.9 % 250 / 250 Sodium Chloride 250 ML @ 166.67 mls/hr IVPB Q12H [facility] Rx#: [id number] Oral 200 / 200 0 / 0 0 / 0 Output: Urine 625 / 625 1150 / 1150 1000 / 1000 Stool 450 / 450 Other: Meal Dinner Percent of Meal Consumed 0% - Labs 09/02/17 02:46 09/02/17 02:46 Diabetes panel 09/02/17 Range/Units 02:46 Sodium 135 L (136-145) mEq/L Potassium 3.3 L (3.5-5.1) mEq/L Chloride 101 (98-107) mEq/L Carbon Dioxide 24 (23-29) mEq/L BUN 6 (6-20) mg/dL Creatinine 0.80 (0.70-1.30) mg/dL Glucose 95 (70-105) mg/dL Calcium 8.3 L (8.6-10.3) mg/dL Calcium panel 09/02/17 Range/Units 02:46 Calcium 8.3 L (8.6-10.3) mg/dL Pituitary panel 09/02/17 Range/Units 02:46 Sodium 135 L (136-145) mEq/L Potassium 3.3 L (3.5-5.1) mEq/L Chloride 101 (98-107) mEq/L Carbon Dioxide 24 (23-29) mEq/L BUN 6 (6-20) mg/dL Creatinine 0.80 (0.70-1.30) mg/dL Glucose 95 (70-105) mg/dL Calcium 8.3 L (8.6-10.3) mg/dL Adrenal panel 09/02/17 Range/Units 02:46 Sodium 135 L (136-145) mEq/L Potassium 3.3 L (3.5-5.1) mEq/L Chloride 101 (98-107) mEq/L Carbon Dioxide 24 (23-29) mEq/L BUN 6 (6-20) mg/dL Creatinine 0.80 (0.70-1.30) mg/dL Glucose 95 (70-105) mg/dL Calcium 8.3 L (8.6-10.3) mg/dL - VTE Documentation of Mechanical Device: Intermittent pneumatic compression device Consult Discharge Plan - Plan Referrals: Viet To MD [Non-Partnered Physician] - Purnima Ordaz CNP [Primary Care Provider] -
[2017-09-02] MEDS: *HR* OxyCODONE/APAP 5/325 TABLET PO PRN (17:06)
[2017-09-03] MEDS: Albuterol 2.5 MG/3 ML NEBULIZER IH SCH ×2 (04:15→10:30)
[2017-09-03 06:25] LABS: BUN/Creatinine Ratio 13 (6-26); Blood Urea Nitrogen 9 mg/dL (6-20); Calcium 8.5 mg/dL (8.6-10.3); Carbon Dioxide 22 mEq/L (23-29); Chloride 104 mEq/L (98-107); Glucose 93 mg/dL (70-105); Magnesium 2.3 mg/dL (1.6-2.6); Osmolality,Calculated 280 (280-300); Sodium 136 mEq/L (136-145); eGFR For African Americans > 60 (> 60); eGFR For Non-African Americans > 60 (> 60)
[2017-09-03 07:16] VITALS: BP 132/85
[2017-09-03] MEDS: Levofloxacin 750 MG/150 ML 750 MG/150 ML BAG IVPB SCH (08:19)
--- NOTE | 2017-09-03 08:33 | Discharge Summary ---
Date of Encounter: 09/03/17 Time of Encounter: 08:31 - Discharge Diagnosis (1) Mixed hyperlipidemia Priority: Secondary Status: Chronic Comments: Chronic (2) Essential hypertension Priority: Secondary Status: Chronic Comments: Chronic and well controlled (3) Bowel obstruction Priority: Primary Status: Acute Comments: Bowel obstruction resolved please see surgery follow-up evaluation for detail Qualifiers: Intestinal obstruction type: other intestinal obstruction Intestinal obstruction extent: partial Qualified Code(s): K56.690 - Other partial intestinal obstruction (4) CAD (coronary artery disease) Priority: Secondary Status: Chronic Comments: No chest pain Qualifiers: Coronary Disease-Associated Artery/Lesion type: [place] artery [place] vs. transplanted heart: [place] heart Associated angina: without angina Qualified Code(s): I25.10 - Atherosclerotic heart disease of [place] coronary artery without angina pectoris (5) UTI (urinary tract infection) Priority: Secondary Status: Ruled-out Comments: Resolved Qualifiers: Urinary tract infection type: acute cystitis Hematuria presence: with hematuria Qualified Code(s): N30.01 - Acute cystitis with hematuria (6) Colonic mass Priority: Secondary Status: Acute Comments: Status post surgical resection (7) Hypokalemia Priority: Secondary Status: Acute (8) Adenocarcinoma of colon Priority: Secondary Status: Acute Comments: Oncology will follow as an outpatient (9) Hospital-acquired pneumonia Priority: Secondary Status: Acute Comments: Patient received triple antibiotics with discharge home on Levaquin for 2 more days - Discharge Medications Prescriptions: levoFLOXacin [Levaquin] 750 mg PO DAILY 10 Days #10 tablet Home Medications: Clopidogrel [Plavix] 75 mg PO DAILY #15 tablet 07/02/17 [Rx] Atorvastatin Calcium [Lipitor] 80 mg PO HS 07/08/17 [History] Metoprolol [Lopressor] 25 mg PO BID 07/08/17 [History] Aspirin Enteric Coated [Aspirin EC] 81 mg PO DAILY 08/25/17 [History] Lactulose 20 gm PO BID PRN 08/25/17 [History] Nitroglycerin [Nitrostat] 0.4 mg SL Q5M PRN 08/25/17 [History] levoFLOXacin [Levaquin] 750 mg PO DAILY 10 Days #10 tablet 09/03/17 [Rx] Allergies/Adverse Reactions: 3 Allergy/AdvReac Type Severity Reaction Status Date / Time No Known Allergies Allergy Verified 08/25/17 14:24 Date of admission: 08/26/17 01:45 Primary care physician: Purnima Ordaz CNP Consults: 08/27/17 00:58 Consult to Enterostomal Therapist [CONS] Routine Reason for Consult: s/p Robert procedure; colostomy care teaching Time Notified: 13:00 Call Completed: Yes 08/27/17 08:18 Consult to Surgery [CONS] Routine Consulting Provider: Viet To Reason for Consult: 2/9 colon mass and colostomy placement Call Completed: Yes 08/31/17 00:01 Consult to Die Casting Machine Maintainer [CONS] Routine Reason for SW Consult: discharge planning ; the patient will require assistance and teaching colostomy care/management 09/01/17 16:37 Consult to Pastoral Services [CONS] Routine Comment: new diagnosis of adenocarcinoma Discharging clinician: Anahi Granados Anticipated date of discharge: 09/03/17 - Patient Status Disposition: Home, Self-Care Functional capacity at discharge: independent ambulation Overall status at discharge: patient is progressing back to baseline - Discharge Instructions - Diet and Activity Activity: other Diet: advance to your usual diet Hospital course: [facility] 57 [facility] of [facility], CAD, high cholesterol, admitted with bowel obstruction secondary to sigmoid mass final diagnosis of adenocarcinoma. Patient being followed by surgery the bowel obstruction has resolved he underwent surgery oncology following as well yesterday he had fever chest x rayv suggestive of pneumonia given vancomycin and started on Levaquin IV t his will be day 2 day of the IV antibiotic culture was pending from blood culture plan on discharged home tomorrow on Levaquin he is not coughing up anything afebrile no chills white count is normal Patient clinically continued to do well and stable for discharge we will follow back surgery as an outpatient and also follow up with oncology for the adenocarcinoma - Time Spent with Patient Total time spent providing and/or coordinating discharge services: Greater than 30 minutes Specific discharge activities: fu with pcp, surgery and oncologist - Constitutional Vitals: Temp Pulse Resp BP Pulse Ox 97.8 F 99 20 132/85 96 09/03/17 06:53 09/03/17 06:53 09/03/17 06:53 09/03/17 06:53 09/03/17 06:53 General appearance: Present: cooperative, A&O X 3, pleasant, no acute distress, answers questions appropriately - VTE Documentation of Mechanical Device: Intermittent pneumatic compression device
[2017-09-03] MEDS ORDERED: FLUARIX QUAD 2017-18 36MOS UP/PF 0.5 ML SYRINGE IM ONE (10:42)
--- NOTE | 2017-09-03 10:43 | Physician Discharge Referral ---
Home Health/Hosp Referral Info Transfer to: Home Health Provider in Charge Post Discharge: PCP - Diagnosis (1) Mixed hyperlipidemia Status: Chronic (2) Essential hypertension Status: Chronic (3) Bowel obstruction Status: Acute (4) CAD (coronary artery disease) Status: Chronic (5) UTI (urinary tract infection) Status: Ruled-out (6) Colonic mass Status: Acute (7) Hypokalemia Status: Acute (8) Adenocarcinoma of colon Status: Acute (9) Hospital-acquired pneumonia Status: Acute - Respiratory Orders Smoking Cessation: Smoking cessation has been advised. For more information, call the [place] Tobacco Quit Line at 2-950-GKUV-NOW. - Diet/Nutrition Diet/Nutrition Orders: Regular - Activity Activity Orders: Up ad suzy - Services Needed Following services are medically necessary services: Physical Therapy, Occupational Therapy - Transfer Medications Prescriptions: levoFLOXacin [Levaquin] 750 mg PO DAILY 10 Days #10 tablet Home Medications: Clopidogrel [Plavix] 75 mg PO DAILY #15 tablet 07/02/17 [Rx] Atorvastatin Calcium [Lipitor] 80 mg PO HS 07/08/17 [History] Metoprolol [Lopressor] 25 mg PO BID 07/08/17 [History] Aspirin Enteric Coated [Aspirin EC] 81 mg PO DAILY 08/25/17 [History] Lactulose 20 gm PO BID PRN 08/25/17 [History] Nitroglycerin [Nitrostat] 0.4 mg SL Q5M PRN 08/25/17 [History] levoFLOXacin [Levaquin] 750 mg PO DAILY 10 Days #10 tablet 09/03/17 [Rx] Allergies/Adverse Reactions: 3 Allergy/AdvReac Type Severity Reaction Status Date / Time No Known Allergies Allergy Verified 08/25/17 14:24 Certification: Further, I certify that my clinical findings support that this patient is homebound (i.e. absences from home require considerable and taxing effort and are for medical reasons or adventist services or infrequently or short duration when for other reasons) because: Homebound Reason: Patient requires assistance of a person or device to safely leave home Attestation: My signature below is to certify that this patient is under my care and that I, or nurse practitioner, or a physician's dam tender assistant working with me, has a face-to -face encounter with this patient.
== END 2017-09-03 11:35 | disposition home health service (06) | DRG 329 ==
LOC: EMEROO 14:14 → 3ANU 14:14
PROVIDERS: ADMIT Internal Medicine; ATTEND Internal Medicine

== ENCOUNTER 2017-09-29 23:01 | Observation (INO) ==
[2017-09-29] MEDS ORDERED: Aspirin 81 MG TAB.CHEW PO ONE (23:17)
[2017-09-29] MEDS ORDERED: 0.9 % Sodium Chloride 1,000 ML IVC ONE (23:17)
[2017-09-29 23:34] LABS: Basophils % 0.4 %; Eosinophils % 0.1 %; Hematocrit 41.8 % (37.5-50.1); Immature Granulocytes % 0.3 % (0-4); Lymphocytes # 1.7 K/mcL (0.6-4.6); Lymphocytes % 23.6 %; Mean Corpuscular HGB Conc 33.5 g/dL (31.6-35.5); Mean Corpuscular Hemoglobin 31.5 pg (28.0-33.3); Mean Corpuscular Volume 93.9 fL (83.0-100.0); Mean Platelet Volume 9.7 fL (9.4-12.4); Monocytes # 0.8 K/mcL (0.0-1.3); Neutrophils # 4.7 K/mcL (1.6-8.9); Platelet Count 179 K/mcL (140-400); Red Blood Count 4.45 M/mcL (4.19-5.50); Red Cell Distribution Width 16.2 % (11.5-14.5); Segmented Neutrophils % 64.6 %
--- NOTE | 2017-09-29 23:41 | Emergency Department Note ---
Disposition Clinical Impression: Chest pain Qualifiers: Chest pain type: other chest pain Qualified Code(s): R07.89 - Other chest pain Disposition: Admitted As Inpatient Condition: Fair Time of Disposition: 03:17 Chest Pain HPI - General Chief Complaint: ED Chest Pain Stated Complaint: Chest Pain Time Seen by Provider: 09/29/17 23:16 Source: patient Limitations: no limitations Vital Signs Reviewed: Yes Nursing Notes Reviewed: Yes - History of Present Illness Pt complaint: chest pain Onset (ago): hour(s) Duration: intermittent Onset: during rest Pain Location: substernal Severity scale (1-10): 0 Pain Radiation: RUE, LUE Improves with: nitroglycerin Worsens with: nothing Context: recent illness (stage 3 colon CA with ) Associated symptoms: Reports: nausea, vomiting, cough ("smokers" no didfferent) . Denies: diaphoresis, dyspnea, fever, other (hemoptysis) Treatments prior to arrival chest pain: nitroglycerin, other (EMS) - Related Data Home Medications Medication Instructions Recorded Confirmed Atorvastatin Calcium [Lipitor] 80 mg PO HS 07/08/17 09/23/17 Metoprolol [Lopressor] 25 mg PO BID 07/08/17 09/23/17 Aspirin Enteric Coated [Aspirin EC] 81 mg PO DAILY 08/25/17 09/23/17 Nitroglycerin [Nitrostat] 0.4 mg SL Q5M PRN 08/25/17 09/23/17 Sildenafil Citrate [Viagra] 50 mg PO DAILY PRN 09/21/17 09/23/17 Previous Rx's Medication Instructions Recorded Clopidogrel [Plavix] 75 mg PO DAILY #15 tablet 07/02/17 Ascorbate Calcium [Vitamin C] 1 tab PO DAILY #30 tablet 09/06/17 Capecitabine [Xeloda] 4 tab PO AD #98 tablet 09/06/17 Ferrous Sulfate [Iron] 1 tab PO DAILY #30 tablet 09/06/17 Omeprazole [PriLOSEC] 20 mg PO DAILY #30 cap 09/06/17 Ondansetron HCl [Zofran] 4 mg PO Q4H PRN #30 tablet 09/06/17 Prochlorperazine Maleate 10 mg PO Q6H PRN #30 tablet 09/06/17 [Compazine] Acetaminophen [Tylenol] 650 mg PO Q6HR PRN tablet 09/21/17 Allergies Allergy/AdvReac Type Severity Reaction Status Date / Time No Known Allergies Allergy Verified 09/23/17 08:26 All systems ED: reviewed and negative except as stated. Review of Systems: As Per HPI Constitutional: Denies: fever, chills, weakness Eyes: Denies: vision change ENT ED: Denies: throat pain Cardiovascular: Reports: as per HPI. Denies: palpitations Respiratory: Reports: as per HPI Gastrointestinal: Reports: as per HPI. Denies: abdominal pain Genitourinary: Denies: dysuria Musculoskeletal: Denies: back pain, neck pain Integumentary: Denies: rash Neurological: Denies: headache Psychiatric: Denies: anxiety, depression Endocrine: Denies: fatigue Hematological/Lymphatic: Denies: easy bleeding Allergic/Immunologic: Denies: facial swelling Chest Pain PMH - Past Medical History Medical history: Reports: cancer, coronary artery disease, hyperlipidemia, hypertension, myocardial infarction, peripheral artery disease Psychiatric history: Reports: no psych history - Social History Smoking Status: Current every day smoker Alcohol use: Reports: occasionally Drug use: Reports: none Physical Exam - General Limitations: no limitations General appearance: alert, in no apparent distress - Head Head exam: normocephalic - Eye Eye exam: Present: EOMI. Absent: conjunctival injection - ENT ENT exam: mucous membranes moist - Neck Neck exam: Present: full ROM - Chest Chest inspection: Present: symmetric chest wall rise - Respiratory Respiratory exam: Present: normal lung sounds bilaterally. Absent: respiratory distress - Cardiovascular Cardiovascular exam: Present: normal rhythm, tachycardia - Abdominal Exam Abdominal exam: Present: soft - Extremities Exam Extremities exam: Present: normal inspection, full ROM, normal capillary refill - Back Exam Back exam: Present: full ROM. Absent: CVA tenderness (R), CVA tenderness (L) - Neurological Exam Neurological exam: Present: alert, oriented X3 - Psychiatric Psychiatric exam: Present: normal affect, normal mood - Skin Skin exam: Present: warm, dry, intact, normal color. Absent: rash, cyanosis, diaphoresis Course Course Narrative: 57-year-old male smoker presents with intermittent chest pain has been going on for the past 8 hours. He states that whenever he has to chest pain radiates into his bilateral shoulders. He had been attempting to see if it would go away throughout the day, but he measured his blood pressure at 285/135 [facility] As he did he also took one of his nitros which she states it relieved his pain. She states that he is concerned since 7 years ago he had a previous CO and stent and denies any recent cardiac evaluation at this time. He also mentions a history of stage III colon cancer, and has been on chemotherapy this week, including infusion on Tuesday, and he will meds all week. He denies any epoxy a, shortness of breath nausea vomiting diaphoresis extremity edema, worsening on exertion, extremity pain. - Reevaluation(s) Reevaluation #1: Patient's lab work is unremarkable. He remains pain free. His vitals are stable. He is no longer tachycardic. Discussed with Dr. Rich who agreed for admission for cardiac rule out. Time: 02:45 Reevaluation #2: pt discussed with Dr. Sin who agreed to accept patient, who agreed to accept patient and also request a repeat D-Dimer Time: 03:16 Vital Signs Temperature 98.5 F 09/29/17 23:09 Pulse Rate 106 09/29/17 23:09 Respiratory Rate 18 09/29/17 23:09 Blood Pressure 93/77 09/29/17 23:09 O2 Sat by Pulse Oximetry 96 09/29/17 23:09 Temperature 97.4 F L 09/30/17 05:37 Pulse Rate 71 09/30/17 05:37 Respiratory Rate 17 09/30/17 05:37 Blood Pressure 146/98 09/30/17 05:37 O2 Sat by Pulse Oximetry 97 09/30/17 05:37 Oxygen Delivery Oxygen Delivery Room Air Chest Pain - MDM Narrative Medical decision making narrative: Pt presented with CP. 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 Pt has significant cardiac risk factors with no recent cardiac eval. He also is currently receiving chemo for stage 3 colon cancer. h/o colostomy denies any GI concerns. Not hypoxic, no cough or hemoptysis, unilateral leg pain. Pt would benefit from admission or cardiac eval. Pt discussed Dr. baez who also had face time with patient and agreed with work up and admission. Pt was accepted by hospitalists. Chest X-Ray 09/29/17 23:17 IMPRESSION: Stable appearance of the chest. D/ / Jaylan Scott MD / Jaylan Scott MD Interpreting Provider: Jaylan Scott MD Laboratory Tests 09/29/17 09/29/17 09/29/17 23:25 23:25 23:25 WBC 7.2 RBC 4.45 Hgb 14.0 Hct 41.8 MCV 93.9 MCH 31.5 MCHC 33.5 RDW 16.2 H Plt Count 179 MPV 9.7 Immature Gran % 0.3 Seg Neutrophils % 64.6 Lymphocytes % 23.6 Monocytes % 11.0 Eosinophils % 0.1 Basophils % 0.4 Neutrophils # 4.7 Lymphocytes # 1.7 Monocytes # 0.8 Eosinophils # 0.0 Basophils # 0.0 PT 11.8 INR 1.1 APTT 28.9 Sodium 136 Potassium 3.6 Chloride 102 Carbon Dioxide 26 BUN 16 Creatinine 0.87 Est GFR ( Amer) > 60 Est GFR (Non-Af Amer) > 60 BUN/Creatinine Ratio 18 Glucose 153 H Calculated Osmolality 286 Lactic Acid Calcium 9.7 Troponin I < 0.03 09/30/17 00:09 WBC RBC Hgb Hct MCV MCH MCHC RDW Plt Count MPV Immature Gran % Seg Neutrophils % Lymphocytes % Monocytes % Eosinophils % Basophils % Neutrophils # Lymphocytes # Monocytes # Eosinophils # Basophils # PT INR APTT Sodium Potassium Chloride Carbon Dioxide BUN Creatinine Est GFR ( Amer) Est GFR (Non-Af Amer) BUN/Creatinine Ratio Glucose Calculated Osmolality Lactic Acid 1.5 Calcium Troponin I - Lab Data Lab results reviewed: Yes I reviewed the patient's lab results. Result diagrams: 09/29/17 23:25 09/29/17 23:25 Lab Results 09/29/17 09/29/17 09/29/17 Range/Units 23:25 23:25 23:25 WBC 7.2 (4.3-11.1) K/mcL RBC 4.45 (4.19-5.50) M/mcL Hgb 14.0 (12.9-16.9) g/dL Hct 41.8 (37.5-50.1) % MCV 93.9 (83.0-100.0) fL MCH 31.5 (28.0-33.3) pg MCHC 33.5 (31.6-35.5) g/dL RDW 16.2 H (11.5-14.5) % Plt Count 179 (140-400) K/mcL MPV 9.7 (9.4-12.4) fL Immature Gran % 0.3 (0-4) % Seg Neutrophils % 64.6 % Lymphocytes % 23.6 % Monocytes % 11.0 % Eosinophils % 0.1 % Basophils % 0.4 % Neutrophils # 4.7 (1.6-8.9) K/mcL Lymphocytes # 1.7 (0.6-4.6) K/mcL Monocytes # 0.8 (0.0-1.3) K/mcL Eosinophils # 0.0 (0.0-0.6) K/mcL Basophils # 0.0 (0.0-0.2) K/mcL PT 11.8 (9.4-12.1) Seconds INR 1.1 APTT 28.9 (26.0-36.0) Seconds Sodium 136 (136-145) mEq/L Potassium 3.6 (3.5-5.1) mEq/L Chloride 102 (98-107) mEq/L Carbon Dioxide 26 (23-29) mEq/L BUN 16 (6-20) mg/dL Creatinine 0.87 (0.70-1.30) mg/dL Est GFR ( Amer) > 60 (> 60) Est GFR (Non-Af Amer) > 60 (> 60) BUN/Creatinine Ratio 18 (6-26) Glucose 153 H (70-105) mg/dL Calculated Osmolality 286 (280-300) Lactic Acid (0.5-2.2) mmol/L Calcium 9.7 (8.6-10.3) mg/dL Troponin I < 0.03 (< 0.04) ng/mL 09/30/17 Range/Units 00:09 WBC (4.3-11.1) K/mcL RBC (4.19-5.50) M/mcL Hgb (12.9-16.9) g/dL Hct (37.5-50.1) % MCV (83.0-100.0) fL MCH (28.0-33.3) pg MCHC (31.6-35.5) g/dL RDW (11.5-14.5) % Plt Count (140-400) K/mcL MPV (9.4-12.4) fL Immature Gran % (0-4) % Seg Neutrophils % % Lymphocytes % % Monocytes % % Eosinophils % % Basophils % % Neutrophils # (1.6-8.9) K/mcL Lymphocytes # (0.6-4.6) K/mcL Monocytes # (0.0-1.3) K/mcL Eosinophils # (0.0-0.6) K/mcL Basophils # (0.0-0.2) K/mcL PT (9.4-12.1) Seconds INR APTT (26.0-36.0) Seconds Sodium (136-145) mEq/L Potassium (3.5-5.1) mEq/L Chloride (98-107) mEq/L Carbon Dioxide (23-29) mEq/L BUN (6-20) mg/dL Creatinine (0.70-1.30) mg/dL Est GFR ( Amer) (> 60) Est GFR (Non-Af Amer) (> 60) BUN/Creatinine Ratio (6-26) Glucose (70-105) mg/dL Calculated Osmolality (280-300) Lactic Acid 1.5 (0.5-2.2) mmol/L Calcium (8.6-10.3) mg/dL Troponin I (< 0.04) ng/mL - Radiology Data Radiology results reviewed: Yes I reviewed the patient's radiology results. - EKG Data EKG attestation: Yes I reviewed and interpreted this EKG. EKG results narrative: Sinus tachycardia, ventricular rate 105. [place] interval 148, Q pentecostalism 85, QT or QTC 324/385. No acute changes. Previous EKG August 2017 Heart Score - Score History: Moderately Suspicious EKG: Normal Age: 45-65 Risk Factors: Equal/Greater than 3 risk factor or history of atherosclerotic disease Troponin: Less than normal limit HEART Score Total: 4 Attestation Statement - Attestation Attestation: I, Austin Rich MD, personally evaluated this patient and discussed their management with the midlevel provicer, PAC/GROCERY CASHIER. I reviewed the midlevel provider 's note and agree with the documented findings, medical decision making, and plan of care. 57-year-old male with previous known history of coronary artery disease and coronary artery stents presents to the emergency department complaining of substernal chest pains off and on all day today. The pain became worse this evening. Pain was relieved with nitroglycerin. On examination patient is a well-developed well-nourished well-appearing male in no acute distress. He is alert and oriented 3. There is no cyanosis or diaphoresis. Chest is nontender to palpation. Breath sounds are clear and equal bilaterally. Heart regular rate and rhythm. Abdomen soft and nontender with normal bowel sounds. Labs reviewed and unremarkable. Troponin normal. Chest x-ray negative. EKG shows a sinus tachycardia with a heart rate 105. No acute ST segment elevation or depression. No arrhythmia or ectopy. The hospitalist, Dr. Sin, was consulted and accepted admission of the patient.
[2017-09-29 23:46] LABS: INR 1.1; Prothrombin Time 11.8 Seconds (9.4-12.1)
[2017-09-29 23:49] LABS: Activated Partial Thrombo Time 28.9 Seconds (26.0-36.0)
[2017-09-30 00:04] LABS: BUN/Creatinine Ratio 18 (6-26); Blood Urea Nitrogen 16 mg/dL (6-20); Calcium 9.7 mg/dL (8.6-10.3); Carbon Dioxide 26 mEq/L (23-29); Chloride 102 mEq/L (98-107); Glucose 153 mg/dL (70-105); Osmolality,Calculated 286 (280-300); Potassium 3.6 mEq/L (3.5-5.1); Sodium 136 mEq/L (136-145); Troponin I < 0.03 ng/mL (< 0.04); eGFR For African Americans > 60 (> 60); eGFR For Non-African Americans > 60 (> 60)
--- NOTE | 2017-09-30 04:16 | Internal Med History&Physical ---
Date of Encounter: 09/30/17 Time of Encounter: 04:08 Assessment and Plan (1) Chest pain Current visit: Yes Status: Acute Chest pain setting of CAD stated post stents, we will follow up troponin 3 do echocardiogram and a stress test Qualifiers: Chest pain type: other chest pain Qualified Code(s): R07.89 - Other chest pain; R07.8 - Other chest pain (2) Mixed hyperlipidemia Current visit: No Status: Chronic (3) Essential hypertension Current visit: No Status: Chronic (4) CAD (coronary artery disease) Current visit: No Status: Chronic Patient had CAD stated post stents placement continue aspirin and Plavix Qualifiers: Coronary Disease-Associated Artery/Lesion type: [place] artery [place] vs. transplanted heart: [place] heart Associated angina: without angina Qualified Code(s): I25.10 - Atherosclerotic heart disease of [place] coronary artery without angina pectoris (5) Adenocarcinoma of colon Current visit: No Status: Acute Stage III colon cancer ongoing chemotherapy will continue chemotherapy (6) PAD (peripheral artery disease) Current visit: Yes Status: Acute Patient has severe peripheral vascular disease s/p stents placed into the right right lower extremity, continue Plavix Internal Medicine - H&P: HPI Chief complaint: chest pain Admitted From: Home Plans for Post Hospital Care: Home History of present illness: Mr. Bedolla is a 57 year old male who has history of colon cancer stage III ongoing chemotherapy, GERD, CAD, hyperlipidemia, hypertension presenting emergency room for on and off chest pain for whole day. Chest pains located in the middle of chest pressure-like 7 out of 10 radiating to bilateral shoulder was achiness, last to 15 minutes on and off not exertional. Nothing makes it worse or better. Associate was milder nausea no vomiting denies sweats no palpation. Patient has stage III colon cancer ongoing chemotherapy, initially he was concerned about chemotherapy related chemotherapy which started a Tuesday. In the afternoon his blood pressure was 280/130, he called EMS and patient was given nitroglycerin when EMS arrvial, chest pain is soft. Lab is umremarkable, trop is negative. EKG shows sinus rhythm no ST changes, CRX is negaitve. Patient is admitted for Chest pain work up due to hx of CAD stent. Past Med Surg Social Fam HX - Past Medical History Medical history: cancer, coronary artery disease, hyperlipidemia, hypertension, myocardial infarction, peripheral artery disease Psychiatric history: no psych history - Past Surgical History Surgical History: vascular surgery - Social History Smoking Status: Current every day smoker Smokeless Tobacco Status: No Alcohol use: occasionally Drug use: none Internal Medicine - H&P: Meds Clopidogrel [Plavix] 75 mg PO DAILY #15 tablet 07/02/17 [Rx] Atorvastatin Calcium [Lipitor] 80 mg PO HS 07/08/17 [History] Metoprolol [Lopressor] 25 mg PO BID 07/08/17 [History] Aspirin Enteric Coated [Aspirin EC] 81 mg PO DAILY 08/25/17 [History] Nitroglycerin [Nitrostat] 0.4 mg SL Q5M PRN 08/25/17 [History] Ascorbate Calcium [Vitamin C] 1 tab PO DAILY #30 tablet 09/06/17 [Rx] Capecitabine [Xeloda] 4 tab PO AD #98 tablet 09/06/17 [Rx] Ferrous Sulfate [Iron] 1 tab PO DAILY #30 tablet 09/06/17 [Rx] Omeprazole [PriLOSEC] 20 mg PO DAILY #30 cap 09/06/17 [Rx] Ondansetron HCl [Zofran] 4 mg PO Q4H PRN #30 tablet 09/06/17 [Rx] Prochlorperazine Maleate [Compazine] 10 mg PO Q6H PRN #30 tablet 09/06/17 [Rx] Acetaminophen [Tylenol] 650 mg PO Q6HR PRN tablet 09/21/17 [Rx] Sildenafil Citrate [Viagra] 50 mg PO DAILY PRN 09/21/17 [History] 3 Allergy/AdvReac Type Severity Reaction Status Date / Time No Known Allergies Allergy Verified 09/23/17 08:26 All Systems PM: All systems review was performed and is negative for pertinent findings except as documented above in the HPI. - Constitutional Vitals: Temp Pulse Resp BP Pulse Ox 98.5 F 73 18 130/87 97 09/29/17 23:09 09/30/17 02:24 09/30/17 02:24 09/30/17 02:24 09/30/17 02:24 General appearance: Present: A&O X 3, pleasant Exam: CONSTITUTIONAL: Patient appears as an age appropriate male well developed, in no acute distress. EYES Clear sclerae, bilateral pupils are equal, reactive to light and accommodation. Extraocular movements are intact RESPIRATORY: No accessory muscle use, bilateral clear to auscultation, no wheezing, no crackles/rales. CARDIOVASCULAR: Regular heart rate, normal S1 and S2, no murmurs GASTROINTESTINAL: bowel sounds present, soft, no tenderness. No hepatosplenomegaly. No bilateral CVA tenderness MUSCULOSKELETAL: Joints in normal range of motion, no clubbing, no edema, no cyanosis. Bilateral peripheral pulses 2+ LYMPHATIC no lymphadenopathy in neck, groin and axilla bilaterally, no thyromegaly. NEUROLOGIC: CN II to XII are grossly intact, no focal neurological deficit. Deep tendon reflexes 2+ bilaterally. Normal light touch sensation to upper and lower extremity PSYCHIATRIC: Oriented x3, with good insight, mood is euthymic. No hallucinations or delusions. SKIN: Skin warm and dry, no rashes, no open wound. Internal Med - H&P Results - Labs CBC & Chem 7: 09/29/17 23:25 09/29/17 23:25 Labs: Short CBC 09/29/17 Range/Units 23:25 WBC 7.2 (4.3-11.1) K/mcL Hgb 14.0 (12.9-16.9) g/dL Hct 41.8 (37.5-50.1) % Plt Count 179 (140-400) K/mcL Neutrophils # 4.7 (1.6-8.9) K/mcL BMP 09/29/17 23:25 Sodium 136 Potassium 3.6 Chloride 102 Carbon Dioxide 26 BUN 16 Creatinine 0.87 Glucose 153 H Calcium 9.7 Cardiac Enzymes 09/29/17 Range/Units 23:25 Troponin I < 0.03 (< 0.04) ng/mL - Impressions ITS Impressions Chest X-Ray 09/29/17 23:17 IMPRESSION: Stable appearance of the chest. D/ / Jaylan Scott MD / Jaylan Scott MD Interpreting Provider: Jaylan Scott MD
[2017-09-30] MEDS ORDERED: Nitroglycerin 0.4 MG TAB.SUBL SL PRN (04:28)
[2017-09-30] MEDS: *HR* Heparin 5,000 UNIT/ML VIAL SQ SCH ×3 (05:48→22:03)
[2017-09-30] MEDS ORDERED: Regadenoson 0.4 MG/5 ML SYRINGE IVP ONE (05:51)
[2017-09-30] MEDS: CAPECITABINE 500 MG PO SCH ×2 (06:09→12:31)
[2017-09-30] MEDS: Aspirin Enteric Coated 81 MG Tablet PO SCH (12:33)
[2017-09-30] MEDS ORDERED: *HR* Metoprolol 5 MG/5 ML VIAL IVP ONE (14:10)
--- NOTE | 2017-09-30 17:13 | Event Note ---
Date of Encounter: 09/30/17 Time of Encounter: 15:00 Spoke with cardiology team about patient's stress test as he had ST segment depression in lead V1, diffuse increase in size of T waves, with no evidence of ischemia with a perfusion test. Patient experienced some right shoulder achiness after the test that responded with nitroglycerin. Cardiology team stated that these were low risk findings and suggested that we start patient on low-dose Imdur and have him follow-up with cardiology outpatient. We are currently awaiting results of echocardiogram for any new wall motion abnormalities. Plan for discharge home tomorrow if echocardiogram is normal. Patient currently asymptomatic with no chest pain, pressure, tightness, shortness of breath and hemodynamically stable at this time.
[2017-09-30] MEDS ORDERED: CAPECITABINE PO SCH (22:45)
[2017-09-30] MEDS ORDERED: [UNRECOGNIZED DRUG - OTHER] PO SCH (22:45)
[2017-10-01] MEDS: *HR* Heparin 5,000 UNIT/ML VIAL SQ SCH (05:23)
[2017-10-01 05:43] LABS: Basophils % 0.2 %; Eosinophils # 0.1 K/mcL (0.0-0.6); Eosinophils % 1.5 %; Hematocrit 37.8 % (37.5-50.1); Hemoglobin 12.6 g/dL (12.9-16.9); Immature Granulocytes % 0.4 % (0-4); Lymphocytes # 2.4 K/mcL (0.6-4.6); Lymphocytes % 43.5 %; Mean Corpuscular HGB Conc 33.3 g/dL (31.6-35.5); Mean Corpuscular Hemoglobin 30.8 pg (28.0-33.3); Mean Corpuscular Volume 92.4 fL (83.0-100.0); Mean Platelet Volume 9.9 fL (9.4-12.4); Monocytes # 0.5 K/mcL (0.0-1.3); Monocytes % 9.6 %; Neutrophils # 2.4 K/mcL (1.6-8.9); Platelet Count 151 K/mcL (140-400); Red Blood Count 4.09 M/mcL (4.19-5.50); Red Cell Distribution Width 15.9 % (11.5-14.5); Segmented Neutrophils % 44.8 %
[2017-10-01 05:48] LABS: INR 1.1
[2017-10-01 06:02] LABS: BUN/Creatinine Ratio 15 (6-26); Blood Urea Nitrogen 14 mg/dL (6-20); Carbon Dioxide 26 mEq/L (23-29); Chloride 106 mEq/L (98-107); Glucose 147 mg/dL (70-105); Potassium 3.8 mEq/L (3.5-5.1); Sodium 138 mEq/L (136-145); eGFR For African Americans > 60 (> 60); eGFR For Non-African Americans > 60 (> 60)
[2017-10-01 06:03] LABS: Alanine Aminotransferase 18 Units/L (7-52); Albumin 3.5 g/dL (3.5-5.7); Albumin/Globulin Ratio 1.3 (1.1-2.2); Alkaline Phosphatase 88 Units/L (34-104); Aspartate Amino Transferase 15 Units/L (13-39); Bilirubin,Total 0.5 mg/dL (0.3-1.0); Globulin 2.7 g/dL (2.4-3.5); Magnesium 2.2 mg/dL (1.6-2.6); Osmolality,Calculated 289 (280-300); Total Protein 6.2 g/dL (6.4-8.9)
[2017-10-01] MEDS ORDERED: CAPECITABINE 500 MG PO SCH (09:00)
[2017-10-01] MEDS ORDERED: Isosorbide MONOnitrate (24 HR) 30 MG TAB.ER.24H PO SCH (09:00)
--- NOTE | 2017-10-01 09:10 | Discharge Summary ---
- NOTES TO OUTPATIENT PROVIDER Notes to Outpatient Provider: Outpatient follow-up with cardiology Date of Encounter: 10/01/17 Time of Encounter: 09:07 - Discharge Diagnosis (1) Chest pain Priority: Primary Status: Acute Qualifiers: Chest pain type: other chest pain Qualified Code(s): R07.89 - Other chest pain; R07.8 - Other chest pain (2) Adenocarcinoma of colon Priority: Secondary Status: Acute (3) CAD (coronary artery disease) Priority: Secondary Status: Chronic Qualifiers: Coronary Disease-Associated Artery/Lesion type: [place] artery [place] vs. transplanted heart: [place] heart Associated angina: without angina Qualified Code(s): I25.10 - Atherosclerotic heart disease of [place] coronary artery without angina pectoris (4) Essential hypertension Priority: Secondary Status: Chronic (5) Mixed hyperlipidemia Priority: Secondary Status: Chronic (6) PAD (peripheral artery disease) Priority: Secondary Status: Chronic Hospital course: Mr. Bedolla is a 57 year old male patient with history of colon cancer stage III receiving chemotherapy, gastroesophageal reflux disease, hyperlipidemia, coronary artery disease, essential hypertension and hyperlipidemia was hospitalized here after presenting with chest pain. He was monitored with telemetry. He also had severely elevated blood pressure of 280/130 when he checked it at home. As such EMS was called and patient was brought into the ER. His troponins were negative. He underwent stress test yesterday which was negative for ischemia or infarct. Gated EF was 66%. She did develop worsening of ST depression in V1 and diffuse increase in size of T waves post stress while in the recovery phase. Echocardiogram was done and showed EF of 60% with mild left ventricular diastolic dysfunction. All wall segments showed normal motion. Case was discussed with cardiology and recommended outpatient follow- up for further evaluation. Presently patient is doing much better and is stable to be discharged from medical standpoint. Per cardiology recommendations , he has been placed on Imdur. Patient also takes Viagra at home as needed. He is advised to hold off on this medication as he has been started on nitrates. He can further discuss other options with his bookkeeping service sales agent at the clinic appointment. His blood pressure is much better controlled now. Discharge discussed with: patient Time spent discussing smoking cessation with patient: 3 to 10 minutes - Time Spent with Patient Total time spent providing and/or coordinating discharge services: Less than 30 minutes - Discharge Medications Prescriptions: Isosorbide MONOnitrate (24 HR) [Imdur] 30 mg PO DAILY #30 tab.er.24h Home Medications: Clopidogrel [Plavix] 75 mg PO DAILY #15 tablet 07/02/17 [Rx] Atorvastatin Calcium [Lipitor] 80 mg PO HS 07/08/17 [History] Metoprolol [Lopressor] 25 mg PO BID 07/08/17 [History] Aspirin Enteric Coated [Aspirin EC] 81 mg PO DAILY 08/25/17 [History] Nitroglycerin [Nitrostat] 0.4 mg SL Q5M PRN 08/25/17 [History] Ascorbate Calcium [Vitamin C] 1 tab PO DAILY #30 tablet 09/06/17 [Rx] Capecitabine [Xeloda] 4 tab PO AD #98 tablet 09/06/17 [Rx] Ferrous Sulfate [Iron] 1 tab PO DAILY #30 tablet 09/06/17 [Rx] Omeprazole [PriLOSEC] 20 mg PO DAILY #30 cap 09/06/17 [Rx] Ondansetron HCl [Zofran] 4 mg PO Q4H PRN #30 tablet 09/06/17 [Rx] Prochlorperazine Maleate [Compazine] 10 mg PO Q6H PRN #30 tablet 09/06/17 [Rx] Acetaminophen [Tylenol] 650 mg PO Q6HR PRN tablet 09/21/17 [Rx] Polyethylene Glycol 3350 [MiraLAX Powder Bulk 17.9 Oz] 17 gm PO DAILY #30 powder 09/30/17 [Rx] Ranitidine HCl [Zantac] 150 mg PO BID #60 tablet 09/30/17 [Rx] Isosorbide MONOnitrate (24 HR) [Imdur] 30 mg PO DAILY #30 tab.er.24h 10/01/17 [ Rx] Patient Taking Own Medication 3 each PO HS each 10/01/17 [Rx] Allergies/Adverse Reactions: 3 Allergy/AdvReac Type Severity Reaction Status Date / Time No Known Allergies Allergy Verified 09/30/17 14:55 Date of admission: 09/30/17 04:57 Primary care physician: Purnima Ordaz CNP Discharging clinician: Lena Ocampo Anticipated date of discharge: 10/01/17 - Constitutional Vitals: Temp Pulse Resp BP Pulse Ox 97.3 F L 95 16 111/73 97 10/01/17 07:44 10/01/17 07:44 10/01/17 07:44 10/01/17 07:44 10/01/17 07:44 General appearance: Present: cooperative, A&O X 3, pleasant, answers questions appropriately - Neck Neck exam general surgery: Present: supple, trachea midline. Absent: lymphadenopathy - Respiratory Respiratory exam: Present: CTAB. Absent: accessory muscle use, rales, rhonchi, wheezes - Cardiovascular Cardiovascular exam: Present: RRR, +S1, +S2. Absent: diastolic murmur, gallop, rubs, systolic murmur - GI/Abdominal GI/Abdominal exam: Present: normal bowel sounds, soft, no peritoneal signs. Absent: distended, tenderness - Extremities Exam Extremities exam: Present: warm, radial pulses palpable and symmetrical. Absent : calf tenderness, cyanotic, pedal edema - Skin Skin exam: Present: dry, intact - Patient Status Disposition: Home, Self-Care Condition: Good Functional capacity at discharge: independent ambulation Overall status at discharge: patient is progressing back to baseline - Discharge Instructions Instructions: Chest Pain (DC), Peripheral Vascular Disorders (DC) Follow Up With: Purnima Ordaz CNP [Primary Care Provider] - (in 1-2 weeks) Forms: ED Satisfaction Letter Additional Instructions: Follow-up with the bookkeeping service sales agent in 1-2 weeks for chest pain and coronary artery disease. Stop taking Viagra while you are on Imdur due to high risk for interaction. Follow up with your bookkeeping service sales agent if you need to change medications or use a different drug. - Diet and Activity Activity: increase activity as tolerated Diet: low fat, low cholesterol, low salt diet
[2017-10-01] MEDS: Aspirin Enteric Coated 81 MG Tablet PO SCH (09:58)
[2017-10-01 12:11] VITALS: BP 114/63
--- NOTE | 2017-10-04 22:00 | Electrocardiograph Report ---
[address] [place] [address] Test Date: 2017-09-29 Pat Name: Santana Bedolla Department: 103 Room: [facility] Gender: M Cataract Lens Generator: : 1960 Requested By: Saad Herr Order Number: [id number] Reading MD: Harman Walker DO Measurements Intervals [place] Rate: 105 P: 58 NH: 148 QRS: -19 QRSD: 85 T: 63 QT: 324 QTc: 385 Interpretive Statements SINUS TACHYCARDIA POSSIBLE INFERIOR MYOCARDIAL INFARCTION, AGE UNDETERMINED Electronically Signed On 10-04-2017 21:58:31 EDT by Harman Walker DO
== END 2017-10-01 14:11 | disposition home or self-care (01) ==
LOC: 3NENU 23:01 → EMEROO 23:01 → SUATTDRO 09-30 04:57 → 3NENU 09-30 05:26
PROVIDERS: ADMIT Hospitalist; ATTEND Internal Medicine

== ENCOUNTER 2018-06-28 06:14 | Inpatient (IN) ==
[2018-06-28] MEDS ORDERED: cefOXitin 2,000 MG in Water for inj. (sterile) 20 ML 20 ML IVP ONE (06:36)
[2018-06-28] MEDS ORDERED: Albuterol 2.5 MG/3 ML NEBULIZER IH ONE ×2 (06:36→09:35)
[2018-06-28] MEDS ORDERED: *HR* FentaNYL (PF) 100 MCG/2 ML VIAL ONE ×3 (06:43→09:56)
[2018-06-28] MEDS ORDERED: *HR* Midazolam HCl 2 MG/2 ML VIAL ONE (06:43)
[2018-06-28] MEDS ORDERED: *HR* Propofol 200 MG/20 ML VIAL IVP ONE (06:43)
[2018-06-28] MEDS ORDERED: Ringers Solution, Lactated 1,000 ML IVC SCH (06:45)
[2018-06-28] MEDS ORDERED: Lidocaine -MPF 2% 2 ML VIAL ONE (07:04)
[2018-06-28] MEDS ORDERED: *HR* Succinylcholine 200 MG/10 ML VIAL IVP ONE (07:04)
[2018-06-28] MEDS ORDERED: Dexamethasone 4 MG/ML VIAL ONE (07:04)
[2018-06-28] MEDS ORDERED: *HR* Rocuronium Bromide 50 MG/5 ML VIAL ONE ×2 (07:04→10:22)
[2018-06-28] MEDS ORDERED: Ondansetron 4 MG/2 ML VIAL ONE (07:04)
[2018-06-28] MEDS ORDERED: Neostigmine Methylsulfate 3 MG/3 ML SYRINGE ONE (07:07)
[2018-06-28] MEDS ORDERED: Ketamine *HR* 500 MG/10 ML MDV ONE (07:20)
--- NOTE | 2018-06-28 07:26 | Anesthesia Evaluation PreOp ---
Date of Encounter: 06/28/18 Time of Encounter: 07:24 - Past History Planned Operation: Exploratory celiotomy, reversal torres procedure Cardiac History: [place] (7 years ago), HTN, Hyperlipidemia, Cardiac Stent (one cardiac stent 7 years ago), Other (PVD one year ago) Pulmonary History: Smoker SENIOR CARE ASSISTANT History: Denies Any Significant HX Other Medical History: Other (hx colon CA) Anesthesia History: No Prior Anesthetic Complications Alcohol Use: occasionally Drug use: none Medications and Allergies Clopidogrel [Plavix] 75 mg PO DAILY #15 tablet 07/02/17 [Rx] Atorvastatin Calcium [Lipitor] 80 mg PO HS 07/08/17 [History] Metoprolol [Lopressor] 25 mg PO BID 07/08/17 [History] Aspirin Enteric Coated [Aspirin EC] 81 mg PO DAILY 08/25/17 [History] Nitroglycerin [Nitrostat] 0.4 mg SL Q5M PRN 08/25/17 [History] Ascorbate Calcium [Vitamin C] 1 tab PO DAILY #30 tablet 09/06/17 [Rx] Acetaminophen [Tylenol] 650 mg PO Q6HR PRN tablet 09/21/17 [Rx] Isosorbide MONOnitrate (24 HR) [Imdur] 30 mg PO DAILY #30 tab.er.24h 10/01/17 [Rx] Lidocaine/Prilocaine [Emla] 1 appl TP AD #30 gm 10/03/17 [Rx] raNITIdine HCl [Zantac] 150 mg PO BID #60 tablet 10/17/17 [Rx] Polyethylene Glycol 3350 [MiraLAX Powder Bulk 17.9 Oz] 17 gm PO DAILY #30 powder 12/20/17 [Rx] Omeprazole [PriLOSEC] 20 mg PO DAILY #30 cap 05/01/18 [Rx] Ferrous Sulfate [Iron] 1 tab PO DAILY #30 tablet 06/26/18 [Rx] Allergy/AdvReac Type Severity Reaction Status Date / Time oxaliplatin AdvReac Anaphylaxis Verified 05/25/18 13:01 - Meds/Allergy Pre-op Review Medications Reviewed: Yes Allergies Reviewed: Yes Beta Blockers on Current Med List: Yes If Beta Blockers taken, Date/Time (Last Dose taken): 06-28-18 metoprolol 5 am Anesthesia Results - Labs Laboratory Tests 06/21/18 06/21/18 16:05 16:05 WBC 8.4 Hgb 15.4 Hct 45.8 Plt Count 169 Sodium 140 Potassium 4.2 Chloride 105 Carbon Dioxide 27 BUN 14 Creatinine 0.90 Est GFR ( Amer) > 60 Est GFR (Non-Af Amer) > 60 BUN/Creatinine Ratio 16 - Imaging EKG: report reviewed, image reviewed (SINUS TACHYCARDIA POSSIBLE INFERIOR MYOCARDIAL INFARCTION, AGE UNDETERMINED) Anesthesia Exam Last Vital Signs Temp 97.6 F 06/28/18 06:43 Pulse 71 06/28/18 06:43 Resp 18 06/28/18 06:43 BP 132/80 06/28/18 06:43 Pulse Ox 96 06/28/18 06:43 Weight: 81 kg NPO (# of Hours): > 8 hrs - HEENT Pupil (Motor): Pupils equal, EOMI Mallampati: I Teeth: Poor dentition Oral Opening: Greater than 3 - SENIOR CARE ASSISTANT LOC: Oriented SENIOR CARE ASSISTANT Motor: Normal RUE, Normal LUE, Normal RLE, Normal LLE, Normal Face - Cardiac Rhythm: Regular Murmur: None - Pulmonary Breath Sounds: bilateral Clear Respiratory Effort: Symmetrical Anesthesia Assess/Plan ASA Score: 3 Level of consciousness: Cooperative Anesthetic Plan: General, Regional Nerve Block, Precautions (no epidural due to dual anti-platelet therapy (only discontinued plavix 2 days ago)) Regional Nerve Block Plan: TAP Monitoring Plan: Standard Monitors Recovery Plan: PACU
[2018-06-28] MEDS ORDERED: Bupivacaine/EPI 1:200k 0.25%PF 30 ML VIAL ONE (07:30)
--- NOTE | 2018-06-28 07:32 | History & Physical Report ---
Date of Encounter: 06/28/18 Time of Encounter: 07:26 24 Hour HP Update - Instructions Instructions: If the History and Physical is less than 30 days old and was completed prior to A.M. admission and or procedure and has NOT been updated on calendar day of procedure please complete this update prior to performing procedure. - Update Patient reports changes in Medical Condition: No Changes in examination, assessment, or condition: No Changes in Medication: No Preop tests/diagnostics Reviewed: Yes Surgery Remains Indicated: Yes Consent for Planned Operative Procedure(s) Verified: Yes - Pre-Operative Checklist Preoperative Checklist Indicated: Yes Prophylactic Antibiotic Ordered: Yes Home Medications Include Beta Baldev: Yes Beta Baldev Taken Today (Day of Surgery): Yes Beta Baldev Taken Yesterday (Day Prior to Surgery): Yes Is VTE Prophylaxis Indicated?: Yes
[2018-06-28] MEDS ORDERED: Acetaminophen IV 1,000 MG/100 ML INFUS..BTL IVPB ONE (07:40)
[2018-06-28] MEDS ORDERED: ROPIVACAINE HCL/PF 0.5% 30 ML VIAL ONE (07:40)
[2018-06-28] MEDS ORDERED: Acetaminophen IV 1,000 MG/100 ML INFUS..BTL ONE (07:48)
--- NOTE | 2018-06-28 08:47 | Anesthesia Procedures ---
Date of Encounter: 06/28/18 Time of Encounter: 08:05 Procedures: Anesthesia - Nerve Block Procedure Date: 06/28/18 Time: 08:05 Allergies/Adv Reactions: oxaliplatin Surgical Procedure: Ex Celiotomy reverse Checklist: Correct Patient Identifier, Correct procedure, History checked Blood Thinner: No Monitor Applied: EKG, BP, Pulse Oximetry Supplemental Oxygen via Nasal Cannula (L/min): 2 Indication: Post Op Analgesia Pre-op Neuro Deficits: No Block Type: Other (Bilateral Subcostal TAP BLock and Bilateral Mid-Axillary Tap Block) Catheter placed: No Sterile Technique: Yes Ultrasound used: Yes Anatomy identified: Yes Visual spread of Local: Yes Neuro Stimulation: No Blood on Needle Aspiration: No Smooth Injection of Local: Yes Pain with Injection of Local: No Prep: Chlorhexadine Needle: 21 x 100 mm Stimuplex Local: Ropivacaine (30mL of 0.25% Ropivacaine for all Block sites. Total of 120mL Volume) Number of Attempts: 1 Complications: None/effective block Vitals: Vital Signs/O2 Sat/Glucose, Most Recent Temp Pulse Resp BP Pulse Ox 97.6 F 71 18 132/80 96 06/28/18 06:43 06/28/18 06:43 06/28/18 06:43 06/28/18 06:43 06/28/18 06:43 Comments: See Anesthesia Record for current vitals and vitals during procedure.
[2018-06-28] MEDS ORDERED: *HR* Labetalol 20 MG/4 ML SYRINGE IVP PRN (09:35)
[2018-06-28] MEDS ORDERED: *HR* OxyCODONE Immed Rel 5 MG TABLET PO PRN (09:35)
[2018-06-28] MEDS ORDERED: *HR* HYDROmorphone (PF) 1 MG/ML SYRINGE IVP PRN (09:35)
[2018-06-28] MEDS ORDERED: *HR* Promethazine 25 MG/ML VIAL IVP PRN (09:35)
[2018-06-28] MEDS ORDERED: *HR* HYDROmorphone (PF) 1 MG/ML SYRINGE ONE (10:10)
[2018-06-28] MEDS ORDERED: *HR* Metoprolol 5 MG/5 ML VIAL IVP ONE (10:30)
--- NOTE | 2018-06-28 12:12 | Operative Note ---
Date of procedure: 06/28/18 Pre-op diagnosis: Obstructing colon cancer, status post Robert procedure Post-op diagnosis: same Procedure: Exploratory celiotomy, lysis of adhesions, reversal of Robert procedure with stapled colocolonic anastomosis; intraoperative rigid sigmoidoscopy Complications: None apparent Anesthesia: GETA Local Anesthetics: 0.25% Sensorcaine HCL with Epinephrine 1:200,000 SubQ (cc) (30 mL) Surgeon: Viet To Was there an trust operations assistant present: No Estimated blood loss (cc): 150 IV fluids (cc): 3,500 Specimen: portion end colostomy; anastomotic rings Condition: stable Disposition: PACU Procedure in Detail: The patient was brought to the operating room where he was placed supine on the procedure table. The patient was appropriately identified to person and procedure. The accuracy of this information was confirmed by the patient and procedure team. The patient was then intubated and anesthetized under the supervision of Dr Jimenez. When the airway was secured, the patient was placed in low lithotomy using yellowfin stirrups. An orogastric tube was placed, a Taylor catheter was inserted. The abdomen and perineum were prepped and draped in the usual sterile fashion. A midline incision was planned with a skin scribe. A RORY block was applied by [facility]. When the surgical team and anesthesia indicated their readiness, a midline skin incision was made from midepigastrium to the pubic tubercle. The dissection was extended to the fascia. Bleeding points were controlled with electrocautery. The fascia was divided in the midline, the abdomen entered atraumatically. There were multiple adhesions primarily of small bowel and omentum to the anterior abdominal wall. These were sharply dissected without difficulty. All was also adherent in the pelvis. These loops of small bowel were also mobilized. The descending colon was identified and skeletonized to the stoma located left anterior abdominal wall. The mucocutaneous margin of the colostomy was incised with sharp dissection extended into the subcutaneous tissue. The peritoneal fascia was also incised and dissection continued until the colostomy was freed of the anterior abd wall. The colostomy was extracted into the abdomen and exteriorized through the midline incision. A noncrushing bowel clamp was placed on the bowel. The portion of bowel traversing the anterior abdominal wall was excised. The descending colon and transverse colon was mobilized by incising lateral peritoneal reflection extending proximal to the splenic flexure onto the transverse colon. This elevated mobilization of the bowel reaching the pelvis with no tension. A pursestring device was applied to the distal descending colon. An Ethicon 29 mm EEA stapler was selected to create the stapled co locolonic anastomosis. The anvil was placed within the descending colon. The pursestring was secured. The surgeon proceeded to the perineum where a rigid sigmoidoscopy was completed of the Robert pouch. There were no abnormalities detected. A small amount of mucus was encountered and evacuated with suction device. The end of the Robert pouch was visualized within the pelvis. The EEA stapler was then inserted, the spike deployed through the end of the Robert pouch and a stapled colocolonic anastomosis completed. 2 intact anastomotic rings were removed from the EEA stapler. The pelvis was filled with saline by the surgical instruments inspector. A rigid sigmoidoscope was then completed. The anastomosis was visually inspected and found to be intact. On insufflation of air there was no "string of bubbles" visualized in the pelvic fluid. The saline was evacuated from the pelvis. The surgeon was regowned and gloved. The and abdomen inspected for adequate hemostasis and closure was initiated. The peritoneum was closed with running interlocking 0 Vicryl. The midline fascia was then closed with interrupted [id number]-[id number] of 0 Vicryl. The fascia was infiltrated with several milliliters of 0.25% bupivacaine with 1-200,000 units epinephrine. The subcutaneous tissue was [place] with running 3-0 Vicryl. The skin edges were approximated with caterina. The fascia of the colostomy was closed with interrupted [id number] 0 Vicryl. The anterior rectus sheath was also closed with interrupted onwwxb-vy-tndox 0 Vicryl. The subcutaneous tissue and skin edges of the colostomy were left open. Vaseline gauze and 4 x 4 gauze covered the stoma. The skin edges of the midline incision were infiltrated with several milliliters of 0.25% bupivacaine with 1-200,000 units epinephrine and then approximated with skin caterina. A dry sterile gauze dressing was applied. A 3 lumen, 16 cm, 7Fr CVL was placed via right subclavian vein prior to taking the patient to PACU. This was accomplished after the surgeon was regowned and gloved. The infraclavicular chest was prepped with chlorhexidine. A whole body drape was applied. The patient was still under general anesthesia allowing me to forego infiltrating the site with lidocaine. Using an 18-gauge needle the right subclavian vein was located without difficulty. A guidewire was placed in a technique described by Juan M. The needle was extracted. At no time was air aspirated The skin tract was incised and dilated. The central venous line was inserted over the guidewire. The guidewire was extracted. The catheter was secured at 15 cm with 3-0 silk. A Biopatch applied. An OpSite dressing applied. The 3 ports aspirated easily for blood and were flushed with heparinized saline. A chest x-ray obtained on patient's arrival in PACU demonstrated no evidence of pneumothorax and appropriate positioning of the central line. The patient was taken to recovery in stable condition. Needle, sponge, and instrument counts were correct at the close of the case. Specimen submitted to pathology included the segment of the descending colon and the 2 anastomotic rings. The distal anastomotic ring was distinguished by the presence of caterina and sutures related to the Robert procedure completed 08/2017.
--- NOTE | 2018-06-28 12:40 | Anesthesia Evaluation Post Op ---
Date of Encounter: 06/28/18 Time of Encounter: 12:39 - Vital Signs Vital Signs: Vital Signs/O2 Sat, Most Current Temp Pulse Resp BP Pulse Ox 97.3 F L 72 18 149/82 94 06/28/18 11:57 06/28/18 12:17 06/28/18 12:17 06/28/18 12:17 06/28/18 12:17 - Lungs Lungs: Clear Ascult./Percussion - Airway Airway: Non-obstructed - Cardiovascular Regular Rate - Mental Status Mental Status: Alert & Oriented, Answers Appropriately - Pain Pain Scale: 0 Pain Scale used: Numeric (1 - 10) - Nausea Vomiting Nausea Vomiting: Not Present - Hydration Hydration: NPO, Taylor catheter - Discharge PostOp Status: Transfer Patient to floor
[2018-06-28] MEDS ORDERED: Nitroglycerin 0.4 MG TAB.SUBL SL PRN (13:26)
[2018-06-28] MEDS ORDERED: *HR* HYDROmorphone 20 MG/20 ML PCA IVC PRN (13:26)
[2018-06-28] MEDS ORDERED: D10% in Water 500 ML IVC PRN (14:05)
[2018-06-28] MEDS: Ringers Solution, Lactated 1,000 ML IVC SCH (14:06)
[2018-06-28] MEDS: Aspirin Enteric Coated 81 MG Tablet PO SCH (15:11)
[2018-06-28] MEDS ORDERED: Clinimix E 5%-15% SOLUTION 2,000 ML with MVI, adult with vitamin K 10 ML IVC SCH (17:00)
[2018-06-29] MEDS: Ringers Solution, Lactated 1,000 ML IVC SCH (02:10)
[2018-06-29 04:41] LABS: Basophils % 0.3 %; Eosinophils # 0.1 K/mcL (0.0-0.6); Eosinophils % 0.4 %; Hematocrit 42.5 % (37.5-50.1); Hemoglobin 14.4 g/dL (12.9-16.9); Immature Granulocytes % 0.2 % (0-4); Lymphocytes # 2.2 K/mcL (0.6-4.6); Lymphocytes % 18.7 %; Mean Corpuscular HGB Conc 33.9 g/dL (31.6-35.5); Mean Corpuscular Hemoglobin 33.1 pg (28.0-33.3); Mean Corpuscular Volume 97.7 fL (83.0-100.0); Monocytes # 1.3 K/mcL (0.0-1.3); Monocytes % 11.5 %; Neutrophils # 8.1 K/mcL (1.6-8.9); Platelet Count 154 K/mcL (140-400); Red Blood Count 4.35 M/mcL (4.19-5.50); Red Cell Distribution Width 12.3 % (11.5-14.5); Segmented Neutrophils % 68.9 %
[2018-06-29 05:00] LABS: BUN/Creatinine Ratio 14 (6-26); Blood Urea Nitrogen 11 mg/dL (8-23); Calcium 8.9 mg/dL (8.6-10.3); Carbon Dioxide 29 mEq/L (23-29); Chloride 104 mEq/L (98-107); Glucose 144 mg/dL (70-105); Osmolality,Calculated 288 (280-300); Phosphorous 3.1 mg/dL (2.7-4.5); Sodium 138 mEq/L (136-145); eGFR For Non-African Americans > 60 (> 60)
[2018-06-29] MEDS: Aspirin Enteric Coated 81 MG Tablet PO SCH (09:36)
[2018-06-29] MEDS: Isosorbide MONOnitrate (24 HR) 30 MG TAB.ER.24H PO SCH (09:36)
[2018-06-29] MEDS ORDERED: Dextrose Gel 15 GM/37.5 ML TUBE PO PRN (13:18)
[2018-06-29] MEDS ORDERED: *HR* Dextrose 50 % in Water (Syg) 50 ML SYRINGE IVP PRN (13:18)
[2018-06-29] MEDS ORDERED: *HR* HYDROmorphone 20 MG/20 ML PCA IVC PRN (13:20)
[2018-06-29] MEDS ORDERED: Ringers Solution, Lactated 1,000 ML IVC SCH (13:30)
[2018-06-29] MEDS ORDERED: 0.9 % Sodium Chloride 1,000 ML ONE (14:42)
[2018-06-29] MEDS: Insulin LISPRO 300 UNITS/3 ML VIAL SQ SCH ×3 (15:04→21:55)
[2018-06-29] MEDS ORDERED: Clinimix E 5%-15% SOLUTION 2,000 ML with MVI, adult with vitamin K 10 ML IVC SCH (17:00)
--- NOTE | 2018-06-29 17:09 | General Surgery Progress Note ---
Date of Encounter: 06/29/18 Time of Encounter: 17:03 Subjective Patient reports: feels better Narrative: General Surgery - POD #1 this is a delayed note. The patient was seen approx 1300 and again tonight Patient feeling well, denies significant incisional or abdominal pain. Maximum temperature 99.1, hemodynamically stable with heart rate 96-107, respirations 16-18 and blood pressure 120/77 to 136/89 Lungs: Clear; no obvious pain on deep inspiration Abdomen: Soft, quiet, nondistended. Midline incision is intact, clean and dry - dressing removed Urine output: 2700 mL for calendar day 06/28/18; 1650 so far today. Blood sugar 144, Accu-Cheks 143-169. Laboratories: WBC 11.7, hemoglobin 14.4, hematocrit 42.5. Platelet count 154,000. Electrolytes, BUN, creatinine within normal limits Phosphorus 3.1, magnesium 2.0 Impression: Postoperative day #1, status post reversal of Robert procedure completed in August 2017 for an obstructing colon cancer. Patient doing well postop. TPN has been initiated to provide calories and protein in the postoperative period until the enteral route becomes available Acceptable blood sugars- will initiate sliding scale coverage until TPN discontinued Operative pathology demonstrated the anastomotic rings with benign colonic mucosa and fibrosis. The end colostomy was also unremarkable. Objective Vital Signs - Last 8 Hours Temp Pulse Resp BP Pulse Ox 06/29/18 16:25 98.5 F 107 18 120/77 90 06/29/18 11:50 99.1 F 103 16 127/89 90 06/29/18 09:35 96 Intake and Output 06/29/18 06/29/18 06/29/18 07:59 15:59 23:59 Intake Total 100 / 100 1954 Output Total 550 / 550 475 / 475 350 / 350 Balance -450 / -450 1480 / 1480 -350 / -350 Intake: IV Fluids 100 / 100 1954 Clinimix E 5%-15% SOLUTION 2, 705 / 705 000 ML @ 45 mls/hr IVC .Q24H ROBIN with M.v.i. Adult 10 ml Rx# :[id number] Lactated Ringers 1,000 ML @ 80 100 / 100 1000 / 1000 mls/hr IVC .[id number] ROBIN Rx#: [id number] Intralipid 20% 250 ML @ 21 mls/ 250 / 250 hr IVPB DAILY@1700 [facility] Rx#: [id number] Oral 0 / 0 0 / 0 Output: Urine 200 / 200 Catheter 350 / 350 475 / 475 350 / 350 Urethral (Taylor) 475 / 475 Other: Meal NPO Percent of Meal Consumed 0% Weight 80.5 kg Blood Glucose* 150 157 158 Patient Weight 06/29/18 23:59 Weight 80.5 kg - Labs 06/29/18 04:13 06/29/18 04:13 Diabetes panel 06/29/18 06/29/18 Range/Units 04:13 04:13 Sodium 138 (136-145) mEq/L Potassium 4.0 (3.5-5.1) mEq/L Chloride 104 (98-107) mEq/L Carbon Dioxide 29 (23-29) mEq/L BUN 11 (8-23) mg/dL Creatinine 0.81 (0.70-1.30) mg/dL Glucose 144 H (70-105) mg/dL Calcium 8.9 (8.6-10.3) mg/dL Triglycerides 141 (< 150) mg/dL Calcium panel 06/29/18 Range/Units 04:13 Calcium 8.9 (8.6-10.3) mg/dL Phosphorus 3.1 (2.7-4.5) mg/dL Pituitary panel 06/29/18 Range/Units 04:13 Sodium 138 (136-145) mEq/L Potassium 4.0 (3.5-5.1) mEq/L Chloride 104 (98-107) mEq/L Carbon Dioxide 29 (23-29) mEq/L BUN 11 (8-23) mg/dL Creatinine 0.81 (0.70-1.30) mg/dL Glucose 144 H (70-105) mg/dL Calcium 8.9 (8.6-10.3) mg/dL Adrenal panel 06/29/18 Range/Units 04:13 Sodium 138 (136-145) mEq/L Potassium 4.0 (3.5-5.1) mEq/L Chloride 104 (98-107) mEq/L Carbon Dioxide 29 (23-29) mEq/L BUN 11 (8-23) mg/dL Creatinine 0.81 (0.70-1.30) mg/dL Glucose 144 H (70-105) mg/dL Calcium 8.9 (8.6-10.3) mg/dL Consult Discharge Plan - Plan Referrals: Purnima Ordaz, BUTCH [Primary Care Provider] -
[2018-06-29] MEDS: *HR* Heparin 5,000 UNIT/ML VIAL SQ SCH (18:02)
[2018-06-30] MEDS: Insulin LISPRO 300 UNITS/3 ML VIAL SQ SCH ×6 (01:05→21:05)
[2018-06-30] MEDS: *HR* Heparin 5,000 UNIT/ML VIAL SQ SCH ×2 (05:14→17:06)
[2018-06-30 06:43] LABS: BUN/Creatinine Ratio 16 (6-26); Blood Urea Nitrogen 12 mg/dL (8-23); Calcium 8.7 mg/dL (8.6-10.3); Carbon Dioxide 27 mEq/L (23-29); Chloride 102 mEq/L (98-107); Glucose 152 mg/dL (70-105); Magnesium 2.1 mg/dL (1.6-2.6); Osmolality,Calculated 283 (280-300); Potassium 3.7 mEq/L (3.5-5.1); Sodium 135 mEq/L (136-145); eGFR For Non-African Americans > 60 (> 60)
[2018-06-30] MEDS: Isosorbide MONOnitrate (24 HR) 30 MG TAB.ER.24H PO SCH (08:19)
[2018-06-30] MEDS: Aspirin Enteric Coated 81 MG Tablet PO SCH (08:20)
--- NOTE | 2018-06-30 13:35 | General Surgery Progress Note ---
Date of Encounter: 06/30/18 Time of Encounter: 13:30 Subjective Narrative: General Surgery - POD #2 Patient complaining of "vague mental status changes" which she attributes to the DATA INPUT CLERK Dilaudid. The patient remains afebrile, currently 98.7, pulse 83-100, respiratory rate 18, blood pressure 139/85. SPO2 on 2L/m nasal cannula 93-94% Lungs: Clear; no obvious abdominal pain and deep inspiration Abdomen: Soft, nondistended; quiet. Midline incision intact, clean and dry Urine output 1950 mL for calendar day 06/29/18; 2350 mL so far today Labs: Sodium 135, potassium 3.7, chloride 102, BUN 12, creatinine 0.73 Glucose 144-152 Phosphorus 2.0, magnesium 2.1 Impression/Plan: Postoperative day #2, status post exploratory celiotomy with lysis of adhesions and reversal of Robert procedure. Stapled colocolonic anastomosis. Patient complaining of mental status changes due to DATA INPUT CLERK Dilaudid - we will discontinue DATA INPUT CLERK, substitute oral analgesics Hypophosphatemia- supplements ordered Objective Vital Signs - Last 8 Hours Temp Pulse Resp BP Pulse Ox 06/30/18 10:35 98.7 F 100 18 139/95 93 06/30/18 07:22 98.2 F 93 18 153/90 94 Intake and Output 06/29/18 06/30/18 06/30/18 23:59 07:59 15:59 Intake Total 68 / 68 250 / 250 Output Total 650 / 650 1475 / 1475 800 / 800 Balance -582 / -582 -1475 / -1475 -550 / -550 Intake: IV Fluids 68 / 68 250 / 250 Lactated Ringers 1,000 ML @ 25 68 / 68 mls/hr IVC .Q24H ROBIN Rx#: [id number] Intralipid 20% 250 ML @ 21 mls/ 250 / 250 hr IVPB DAILY@1700 ROBIN Rx#: [id number] Output: Urine 800 / 800 Catheter 650 / 650 1475 / 1475 Urethral (Taylor) 875 / 875 Other: Meal NPO # Bowel Movements 0 Weight 80.3 kg Blood Glucose* 154 159 163 Patient Weight 06/30/18 23:59 Weight 80.3 kg - Labs 06/29/18 04:13 06/30/18 04:00 Diabetes panel 06/30/18 Range/Units 04:00 Sodium 135 L (136-145) mEq/L Potassium 3.7 (3.5-5.1) mEq/L Chloride 102 (98-107) mEq/L Carbon Dioxide 27 (23-29) mEq/L BUN 12 (8-23) mg/dL Creatinine 0.73 (0.70-1.30) mg/dL Glucose 152 H (70-105) mg/dL Calcium 8.7 (8.6-10.3) mg/dL Calcium panel 06/30/18 Range/Units 04:00 Calcium 8.7 (8.6-10.3) mg/dL Phosphorus 2.0 L (2.7-4.5) mg/dL Pituitary panel 06/30/18 Range/Units 04:00 Sodium 135 L (136-145) mEq/L Potassium 3.7 (3.5-5.1) mEq/L Chloride 102 (98-107) mEq/L Carbon Dioxide 27 (23-29) mEq/L BUN 12 (8-23) mg/dL Creatinine 0.73 (0.70-1.30) mg/dL Glucose 152 H (70-105) mg/dL Calcium 8.7 (8.6-10.3) mg/dL Adrenal panel 06/30/18 Range/Units 04:00 Sodium 135 L (136-145) mEq/L Potassium 3.7 (3.5-5.1) mEq/L Chloride 102 (98-107) mEq/L Carbon Dioxide 27 (23-29) mEq/L BUN 12 (8-23) mg/dL Creatinine 0.73 (0.70-1.30) mg/dL Glucose 152 H (70-105) mg/dL Calcium 8.7 (8.6-10.3) mg/dL Consult Discharge Plan - Plan Referrals: Purnima Ordaz, MEDIA CENTER ASSISTANT [Primary Care Provider] -
[2018-06-30] MEDS ORDERED: *HR* OxyCODONE Immed Rel 5 MG TABLET PO PRN (13:36)
[2018-06-30] MEDS: Acetaminophen 325 MG TABLET PO PRN (14:01)
[2018-06-30] MEDS ORDERED: Clinimix E 5%-15% SOLUTION 2,000 ML with MVI, adult with vitamin K 10 ML IVC SCH (17:00)
[2018-07-01] MEDS: Insulin LISPRO 300 UNITS/3 ML VIAL SQ SCH ×6 (00:32→20:14)
[2018-07-01] MEDS: Acetaminophen 325 MG TABLET PO PRN ×3 (00:37→17:33)
[2018-07-01 02:13] LABS: Basophils % 0.4 %; Eosinophils # 0.3 K/mcL (0.0-0.6); Eosinophils % 2.6 %; Hematocrit 42.8 % (37.5-50.1); Immature Granulocytes % 0.2 % (0-4); Lymphocytes # 1.3 K/mcL (0.6-4.6); Lymphocytes % 12.1 %; Mean Corpuscular Hemoglobin 33.3 pg (28.0-33.3); Mean Corpuscular Volume 95.1 fL (83.0-100.0); Mean Platelet Volume 9.9 fL (9.4-12.4); Monocytes # 0.9 K/mcL (0.0-1.3); Monocytes % 8.8 %; Platelet Count 153 K/mcL (140-400); Red Cell Distribution Width 12.2 % (11.5-14.5); Segmented Neutrophils % 75.9 %
[2018-07-01 02:33] LABS: BUN/Creatinine Ratio 17 (6-26); Blood Urea Nitrogen 12 mg/dL (8-23); Carbon Dioxide 25 mEq/L (23-29); Chloride 103 mEq/L (98-107); Glucose 141 mg/dL (70-105); Magnesium 2.2 mg/dL (1.6-2.6); Osmolality,Calculated 284 (280-300); Phosphorous 2.8 mg/dL (2.7-4.5); Potassium 3.5 mEq/L (3.5-5.1); Sodium 136 mEq/L (136-145); eGFR For Non-African Americans > 60 (> 60)
[2018-07-01] MEDS: *HR* Heparin 5,000 UNIT/ML VIAL SQ SCH ×2 (04:45→17:45)
[2018-07-01] MEDS: Aspirin Enteric Coated 81 MG Tablet PO SCH (11:36)
[2018-07-01] MEDS: Isosorbide MONOnitrate (24 HR) 30 MG TAB.ER.24H PO SCH (11:36)
--- NOTE | 2018-07-01 12:51 | General Surgery Progress Note ---
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 Pain controlled with oral narcotics Patient remains afebrile, 98.3; heart rate 81 currently, as high as 108 early this morning; respiratory rate 16, blood pressure 131/94 to 169/90. Lungs: Clear, no obvious pain on deep inspiration; SPO2 on 2 L/m nasal cannula 97% Cardiac: Regular rate, no appreciable murmurs Abdomen: Soft, nondistended, nontender. Midline incision intact. Stoma site intact. Both healing well. No active bowel sounds audible Extremities: No obvious clubbing, cyanosis or edema. Urine output: 3450 mL for the last 24 hours - reflecting IV fluids/TPN currently being administered as well as perioperative fluids. Labs: WBC 10.5, hemoglobin 15.0, hematocrit 42.8; differential within normal limits Sodium 136, potassium 3.5, chloride 103, BUN 12, creatinine 0.71. Blood sugars 141; Accu-Cheks 151 to 199 Phosphorus corrected to 2.8, magnesium 2.2 Impression/Plan: Postoperative day #3, status post reversal of Robert procedure with stapled colocolonic anastomosis. Acceptable postoperative state Enteral route not yet available. Continue TPN. Patient encouraged to be active out of bed Maintain Taylor to avoid urinary retention, overdistention of the bladder with focal pressure on the colocolonic anastomosis ` Objective Vital Signs - Last 8 Hours Temp Pulse Resp BP Pulse Ox 07/01/18 12:16 98.3 F 81 16 169/90 97 07/01/18 09:00 97 07/01/18 07:13 98.4 F 100 16 131/94 96 07/01/18 04:48 98.3 F 108 16 153/87 94 Intake and Output 06/30/18 07/01/18 07/01/18 23:59 07:59 15:59 Intake Total 260 / 260 250 / 250 Output Total 1100 / 1100 875 / 875 Balance -840 / -840 -625 / -625 Intake: IV Fluids 260 / 260 250 / 250 Intralipid 20% 250 ML @ 21 mls/ 250 / 250 hr IVPB DAILY@1700 [facility] Rx#: [id number] Sodium Phosphate 30 MMOL In 0.9 260 / 260 % Sodium Chloride 250 ML @ 42 mls/hr IVPB ONCE ONE Rx#: [id number] Output: Urine 450 / 450 Catheter 1100 / 1100 425 / 425 Other: Meal npo NPO for breakfast Weight 92.1 kg Blood Glucose* 151 199 225 Patient Weight 07/01/18 23:59 Weight 92.1 kg - Labs 07/01/18 02:00 07/01/18 02:00 Diabetes panel 07/01/18 Range/Units 02:00 Sodium 136 (136-145) mEq/L Potassium 3.5 (3.5-5.1) mEq/L Chloride 103 (98-107) mEq/L Carbon Dioxide 25 (23-29) mEq/L BUN 12 (8-23) mg/dL Creatinine 0.71 (0.70-1.30) mg/dL Glucose 141 H (70-105) mg/dL Calcium 9.0 (8.6-10.3) mg/dL Calcium panel 07/01/18 Range/Units 02:00 Calcium 9.0 (8.6-10.3) mg/dL Phosphorus 2.8 (2.7-4.5) mg/dL Pituitary panel 07/01/18 Range/Units 02:00 Sodium 136 (136-145) mEq/L Potassium 3.5 (3.5-5.1) mEq/L Chloride 103 (98-107) mEq/L Carbon Dioxide 25 (23-29) mEq/L BUN 12 (8-23) mg/dL Creatinine 0.71 (0.70-1.30) mg/dL Glucose 141 H (70-105) mg/dL Calcium 9.0 (8.6-10.3) mg/dL Adrenal panel 07/01/18 Range/Units 02:00 Sodium 136 (136-145) mEq/L Potassium 3.5 (3.5-5.1) mEq/L Chloride 103 (98-107) mEq/L Carbon Dioxide 25 (23-29) mEq/L BUN 12 (8-23) mg/dL Creatinine 0.71 (0.70-1.30) mg/dL Glucose 141 H (70-105) mg/dL Calcium 9.0 (8.6-10.3) mg/dL Consult Discharge Plan - Plan Referrals: Purnima Ordaz, BUTCH [Primary Care Provider] -
[2018-07-01] MEDS ORDERED: Clinimix E 5%-15% SOLUTION 2,000 ML with MVI, adult with vitamin K 10 ML IVC SCH (17:00)
[2018-07-02] MEDS: Insulin LISPRO 300 UNITS/3 ML VIAL SQ SCH ×6 (00:53→20:13)
[2018-07-02] MEDS: *HR* Heparin 5,000 UNIT/ML VIAL SQ SCH ×2 (05:32→17:12)
[2018-07-02] MEDS: Isosorbide MONOnitrate (24 HR) 30 MG TAB.ER.24H PO SCH (09:13)
[2018-07-02] MEDS: Aspirin Enteric Coated 81 MG Tablet PO SCH (09:13)
--- NOTE | 2018-07-02 12:08 | General Surgery Progress Note ---
Date of Encounter: 07/02/18 Time of Encounter: 12:01 Subjective Patient reports: no new complaints, no flatus, no bowel movement Narrative: General Surgery - POD #4 Patient feeling well, voicing no complaints. He describes copious belching but no flatus or BM. The patient is tachycardic this morning, approximately 103 bpm; he was markedly Tachycardic into the 120s 130s last evening while active out of bed. Despite the tachycardia, he has been afebrile and hemodynamically stable. Respiratory rate 1518, blood pressure 147/91 - 142/95. Lungs: Clear to auscultation; SPO2 on room air is now 97%. He denies any abdominal pain on deep inspiration Cardiac: Rapid rate, approximately 103-10 7 bpm, no appreciable murmurs Abdomen: Soft with no obvious tenderness. No detected masses or peritoneal signs. Bowel sounds are present. Midline incision is intact, and healing well. Stoma site also healing well. Urine output: 825 mL for calender day 07/01/18; 925 mL so far today Accu-Chek 167 this morning; range in the last 24 hours 165-225 Impression/plan: Postoperative day #4, status post reversal of Daniel's procedure performed in August 2017 for acute perforated sigmoid diverticulitis with abdominal and pelvic abscesses. Acceptable postoperative status except for the recent tachycardia Newly detected tachycardia of uncertain significance. No fevers or hypotension recorded. No abdominal pain. Pulmonary status improved as patient is now off supplemental oxygen; SPO2 97% Awaiting return of bowel function to begin enteral nutrition. Will continue TPN until able to provide enteral nutrition Continue to monitor, check labs in a.m. Objective Vital Signs - Last 8 Hours Temp Pulse Resp BP Pulse Ox 07/02/18 11:10 97.6 F 87 18 142/95 94 07/02/18 08:30 94 07/02/18 07:26 98.3 F 90 15 147/91 94 Intake and Output 07/01/18 07/02/18 07/02/18 23:59 07:59 15:59 Intake Total 1962 Output Total 400 / 400 475 / 475 450 / 450 Balance 1563 / 1563 -475 / -475 -450 / -450 Intake: IV Fluids 1962 Clinimix E 5%-15% SOLUTION 1962 000 ML @ 83.3 mls/hr IVC .Q24H ROBIN with M.v.i. Adult 10 ml Rx# :[id number] Oral 0 / 0 Output: Urine 0 / 0 Catheter 400 / 400 475 / 475 450 / 450 Other: Weight 91.8 kg Blood Glucose* 190 193 Patient Weight 07/02/18 23:59 Weight 91.8 kg - Labs 07/01/18 02:00 07/01/18 02:00 Consult Discharge Plan - Plan Referrals: Purnima Ordaz, BUSINESS PLANNER [Primary Care Provider] -
[2018-07-02] MEDS ORDERED: Clinimix E 5%-15% SOLUTION 2,000 ML with MVI, adult with vitamin K 10 ML IVC SCH (17:00)
[2018-07-02] MEDS: Acetaminophen 325 MG TABLET PO PRN (20:04)
[2018-07-02] MEDS ORDERED: Mag Hydrox/Al Hydrox/Simeth 30 ML UDC PO ONE (22:24)
[2018-07-03] MEDS: Insulin LISPRO 300 UNITS/3 ML VIAL SQ SCH ×5 (00:12→16:02)
[2018-07-03 03:11] LABS: Basophils # 0.1 K/mcL (0.0-0.2); Basophils % 0.4 %; Eosinophils # 0.3 K/mcL (0.0-0.6); Eosinophils % 2.4 %; Hemoglobin 15.8 g/dL (12.9-16.9); Immature Granulocytes % 0.2 % (0-4); Lymphocytes # 2.1 K/mcL (0.6-4.6); Lymphocytes % 17.1 %; Mean Corpuscular HGB Conc 34.3 g/dL (31.6-35.5); Mean Corpuscular Hemoglobin 32.6 pg (28.0-33.3); Mean Corpuscular Volume 94.8 fL (83.0-100.0); Mean Platelet Volume 9.8 fL (9.4-12.4); Monocytes # 1.3 K/mcL (0.0-1.3); Monocytes % 10.4 %; Neutrophils # 8.6 K/mcL (1.6-8.9); Platelet Count 227 K/mcL (140-400); Red Blood Count 4.85 M/mcL (4.19-5.50); Red Cell Distribution Width 12.2 % (11.5-14.5); Segmented Neutrophils % 69.5 %
[2018-07-03 03:28] LABS: Alanine Aminotransferase 12 Units/L (7-52); Albumin 3.7 g/dL (3.5-5.7); Albumin/Globulin Ratio 1.2 (1.1-2.2); Alkaline Phosphatase 78 Units/L (34-104); Aspartate Amino Transferase 11 Units/L (13-39); BUN/Creatinine Ratio 21 (6-26); Bilirubin,Total 0.5 mg/dL (0.3-1.0); Blood Urea Nitrogen 16 mg/dL (8-23); Calcium 9.1 mg/dL (8.6-10.3); Carbon Dioxide 29 mEq/L (23-29); Chloride 100 mEq/L (98-107); Glucose 153 mg/dL (70-105); Magnesium 2.1 mg/dL (1.6-2.6); Osmolality,Calculated 288 (280-300); Phosphorous 3.4 mg/dL (2.7-4.5); Potassium 3.6 mEq/L (3.5-5.1); Sodium 137 mEq/L (136-145); Total Protein 6.7 g/dL (6.4-8.9); eGFR For Non-African Americans > 60 (> 60)
[2018-07-03] MEDS: *HR* Heparin 5,000 UNIT/ML VIAL SQ SCH ×2 (06:39→16:05)
[2018-07-03] MEDS: Aspirin Enteric Coated 81 MG Tablet PO SCH (08:33)
[2018-07-03] MEDS: Isosorbide MONOnitrate (24 HR) 30 MG TAB.ER.24H PO SCH (08:33)
[2018-07-03] MEDS ORDERED: Mag Hydrox/Al Hydrox/Simeth 30 ML UDC PO PRN (10:05)
--- NOTE | 2018-07-03 12:27 | General Surgery Progress Note ---
Date of Encounter: 07/03/18 Time of Encounter: 12:17 Subjective Patient reports: feels better, bowel movement Narrative: General Surgery - POD #5 Patient feeling better; bowels began moving last evening. Initial bowel movement "had blood in it". This is to be expected following a bowel resection. Patient complaining of heartburn/pyrosis - Maalox and omeprazole have been initiated The patient remains afebrile, hemodynamically stable: currently 98.0, pulse 71 but has been as high as 110; respiratory rate 15, blood pressure 136/91 Lungs: Clear; SPO2 on room air 9496% Abdomen: Soft, nondistended. Groin incision intact, clean and dry. Images well approximated; no obvious fascial defects. Active bowel sounds. Ostomy site also intact and healing appropriately. Urine output 1375 mL for calendar day 07/02/18; 600 mL so far today - this reflects infusion continued TPN Laboratories : WBC has increased to 12.4,, likely response to cramping abdominal pain and subsequent BMs Electrolytes, BUN, creatinine within normal limits. Phosphorus 3.4, magnesium 2.1, LFTs within normal limits. Protein 6.7 Accu-Cheks: 167-227 - again likely due to TPN Impression/plan Postoperative day #5, status post reversal of Robert procedure created in August 2017 when patient presented with acute perforated sigmoid diverticulitis with intra-abdominal and pelvic abscesses. Acceptable postoperative status. Bowel function has returned. Will begin advance diet as tolerated; taper and discontinue TPN. Remove Taylor in a.m. patient with continued tachycardia - no fever, no signs or symptoms sepsis. recheck WBC in AM Objective Vital Signs - Last 8 Hours Temp Pulse Resp BP Pulse Ox 07/03/18 09:55 98.0 F 71 15 136/91 96 07/03/18 06:18 98.6 F 104 15 143/90 94 Intake and Output 07/02/18 07/03/18 07/03/18 23:59 07:59 15:59 Intake Total 0 / 0 0 / 0 1673 / 1673 Output Total 450 / 450 350 / 350 250 / 250 Balance -450 / -450 -350 / -350 1423 / 1423 Intake: IV Fluids 1613 / 1613 Clinimix E 5%-15% SOLUTION 2, 1363 / 1363 000 ML @ 83.3 mls/hr IVC .Q24H ROBIN with M.v.i. Adult 10 ml Rx# :[id number] Intralipid 20% 250 ML @ 21 mls/ 250 / 250 hr IVPB DAILY@1700 ROBIN Rx#: [id number] Oral 0 / 0 0 / 0 60 / 60 Output: Catheter 450 / 450 350 / 350 250 / 250 Other: Meal Clears Stool Size Small Small Stool Consistency loose soft Stool Color Brown Brown Blood Tinged # Bowel Movements 1 Blood Glucose* 227 219 254 - Labs 07/03/18 02:45 07/03/18 02:45 Diabetes panel 07/03/18 Range/Units 02:45 Sodium 137 (136-145) mEq/L Potassium 3.6 (3.5-5.1) mEq/L Chloride 100 (98-107) mEq/L Carbon Dioxide 29 (23-29) mEq/L BUN 16 (8-23) mg/dL Creatinine 0.75 (0.70-1.30) mg/dL Glucose 153 H (70-105) mg/dL Calcium 9.1 (8.6-10.3) mg/dL AST 11 L (13-39) Units/L ALT 12 (7-52) Units/L Alkaline Phosphatase 78 (34-104) Units/L Albumin 3.7 (3.5-5.7) g/dL Calcium panel 07/03/18 Range/Units 02:45 Calcium 9.1 (8.6-10.3) mg/dL Phosphorus 3.4 (2.7-4.5) mg/dL Albumin 3.7 (3.5-5.7) g/dL Pituitary panel 07/03/18 Range/Units 02:45 Sodium 137 (136-145) mEq/L Potassium 3.6 (3.5-5.1) mEq/L Chloride 100 (98-107) mEq/L Carbon Dioxide 29 (23-29) mEq/L BUN 16 (8-23) mg/dL Creatinine 0.75 (0.70-1.30) mg/dL Glucose 153 H (70-105) mg/dL Calcium 9.1 (8.6-10.3) mg/dL Adrenal panel 07/03/18 Range/Units 02:45 Sodium 137 (136-145) mEq/L Potassium 3.6 (3.5-5.1) mEq/L Chloride 100 (98-107) mEq/L Carbon Dioxide 29 (23-29) mEq/L BUN 16 (8-23) mg/dL Creatinine 0.75 (0.70-1.30) mg/dL Glucose 153 H (70-105) mg/dL Calcium 9.1 (8.6-10.3) mg/dL Total Bilirubin 0.5 (0.3-1.0) mg/dL AST 11 L (13-39) Units/L ALT 12 (7-52) Units/L Alkaline Phosphatase 78 (34-104) Units/L Albumin 3.7 (3.5-5.7) g/dL Consult Discharge Plan - Plan Referrals: Purnima Ordaz, HOTEL CONCIERGE [Primary Care Provider] -
--- NOTE | 2018-07-03 15:03 | Electrocardiograph Report ---
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
[2018-07-04] MEDS: *HR* Heparin 5,000 UNIT/ML VIAL SQ SCH (06:30)
[2018-07-04] MEDS: Isosorbide MONOnitrate (24 HR) 30 MG TAB.ER.24H PO SCH (09:00)
[2018-07-04] MEDS: Aspirin Enteric Coated 81 MG Tablet PO SCH (09:00)
[2018-07-04 13:49] VITALS: BP 126/76
--- NOTE | 2018-07-04 15:55 | General Surgery Progress Note ---
Date of Encounter: 07/04/18 Time of Encounter: 15:34 Subjective Patient reports: no new complaints, feels better Narrative: General Surgery - POD #6 Progess Note / Discharge Summary Patient feeling much improved; heartburn/pyrosis resolved with discontinuation of the TPN Patient tolerating a full liquid diet, moving his bowels without difficulty. He denies any abdominal pain Patient remains afebrile. Hemodynamically stable despite recurrent tachycardia to as high as 108. Currently pulse 87, respirations 15, blood pressure 126/76. Lungs: Clear bilaterally, no abdominal pain on deep inspiration Cardiac: Regular rate, no appreciable murmurs, however, cardiac monitoring continues to record periodic episodes tachycardia Abdomen: Soft, nontender. Incision intact, healing well. No detected fascial defects. The stoma site left anterior abdominal wall - clean and dry. Minimal erythema between the stoma and midline incision.. Taylor removed this morning, patient able to void without difficulty. No dysuria Laboratories: White count has improved to 11.4 Impression/Plan: Postoperative day #6 - status post reversal of Robert procedure. History of obstructing colon mass - status post Robert procedure, 08/27/17 Acceptable postoperative status; patient to be discharged home. Discharge instructions Regular diet Patient may shower, wash incisions with soap and water Activity as tolerated; lifting limited to less than 20 Tylenol, ibuprofen, Motrin, Advil, Aleve as needed for pain Outpatient follow-up, 05/06/18. Patient to continue/resume home meds Hospital course: Brief history- 58-year-old male, Status post Robert procedure after presenting to the emergency department with progressive abdominal pain and distention with radiologic evidence of an obstructing colon mass at the level of this rectosigmoid. The surgery was completed 08/27/17. The patient has since recovered and completed adjuvant chemotherapy. He returns to [facility], 06/28/18, to undergo reversal of Robert procedure. This was completed, 06/28/2018, with subsequent hospital admission for postoperative care and management. The patient's postoperative course was fairly unremarkable. TPN was initiated at the time of surgery. The patient demonstrated transient electrolyte abnormalities that responded to appropriate IV or oral supplementation. Bowel function resumed/became obvious postoperative day #5. The patient had been on TPN until this day when enteral nutrition was resumed. Diet was initiated and advanced as tolerated. The TPN was tapered and discontinued. The patient had minimal pain as initially controlled with CRYSTAL GAZER Dilaudid, followed by oral analgesics. At the time of discharge, the patient denied any abdominal or incisional pain. The patient was discharged in good physical condition on postoperative day #6. Afebrile, hemodynamically stable despite episodic tachycardia. The tachycardia was of uncertain/undetermined etiology. EKG was nondiagnostic for any new cardiac ischemia or injury. Past medical history: CAD, with history of LA approximately 2010; status post coronary stents Peripheral vascular disease with peripheral stents. Due to the history of coronary stents as well as peripheral vascular stents - aspirin and clopidogrel were continued without interruption for the planned surgery completed, 06/28/2018 and post op. Hypertension and hyperlipidemia - both stable during this hospitalization. Objective Vital Signs - Last 8 Hours Temp Pulse Resp BP Pulse Ox 07/04/18 13:48 98.2 F 87 15 126/76 96 07/04/18 10:13 98.2 F 108 15 145/90 93 Intake and Output 07/03/18 07/04/18 07/04/18 23:59 07:59 15:59 Intake Total 272 / 272 0 / 0 2370 / 2370 Output Total 250 / 250 400 / 400 Balance -400 / -400 2370 / 2370 Intake: IV Fluids 272 / 272 2009 Clinimix E 5%-15% SOLUTION 2, 272 / 272 000 ML @ 83.3 mls/hr IVC .Q24H ROBIN with M.v.i. Adult 10 ml Rx# :[id number] Oral 0 / 0 0 / 0 360 / 360 Output: Urine 0 / 0 Catheter 250 / 250 400 / 400 Other: Meal Lunch Percent of Meal Consumed 10% Stool Size Smear Smear Small Stool Consistency liquid liquid liquid Stool Characteristics Mucoid # Voids 2 # Bowel Movements 1 2 Weight 91.8 kg Blood Glucose* 128 130 Patient Weight 07/04/18 23:59 Weight 91.8 kg - Labs 07/04/18 04:34 07/03/18 02:45 Consult Discharge Plan - Plan Referrals: Viet To MD [Non-Partnered Physician] - Purnima Ordaz CNP [Primary Care Provider] -
--- NOTE | 2018-07-04 15:58 | Discharge Summary ---
Outpatient Proc Discharge Plan - Plan Additional Instructions: Regular diet Activity as tolerated; lifting limit of the less than 20 pounds Patient may shower, wash incisions with soap and water Outpatient follow-up, 05/06/18. Patient to call office in the a.m. of 05/06/18 to make appointment for that afternoon. Tylenol, ibuprofen, Motrin, etc. as needed for pain Patient to continue/resume home meds Home Medications: Clopidogrel [Plavix] 75 mg PO DAILY #15 tablet 07/02/17 [Rx] Atorvastatin Calcium [Lipitor] 80 mg PO HS 07/08/17 [History] Metoprolol [Lopressor] 25 mg PO BID 07/08/17 [History] Aspirin Enteric Coated [Aspirin EC] 81 mg PO DAILY 08/25/17 [History] Nitroglycerin [Nitrostat] 0.4 mg SL Q5M PRN 08/25/17 [History] Isosorbide MONOnitrate (24 HR) [Imdur] 30 mg PO DAILY #30 tab.er.24h 10/01/17 [Rx] Lidocaine/Prilocaine [Emla] 1 appl TP AD #30 gm 10/03/17 [Rx] Polyethylene Glycol 3350 [MiraLAX Powder Bulk 17.9 Oz] 17 gm PO DAILY #30 powder 12/20/17 [Rx] Omeprazole [PriLOSEC] 20 mg PO DAILY #30 cap 05/01/18 [Rx] Acetaminophen [Tylenol] 650 mg PO Q6H PRN tablet 07/04/18 [Rx]
== END 2018-07-04 16:48 | disposition home or self-care (01) | DRG 331 ==
LOC: SAMDAY 06:14 → 3ANU 12:52
PROVIDERS: ADMIT Surgery; ATTEND Surgery

== ENCOUNTER 2021-11-26 09:23 | Inpatient (IN) ==
[2021-11-26] MEDS ORDERED: Clindamycin 900 MG/50 ML 900 MG/50 ML IV.SOLN IVPB ONE (09:43)
[2021-11-26] MEDS ORDERED: CeFAZolin Syr 2,000MG/20 ML 2,000 MG/20 ML SYRINGE IVPB ONE (09:43)
[2021-11-26] MEDS ORDERED: Ringers Solution, Lactated 1,000 ML IVC SCH (09:45)
[2021-11-26] MEDS ORDERED: *HR* OxyCODONE Immed Rel 5 MG TABLET PO PRN ×3 (09:47→18:22)
[2021-11-26] MEDS ORDERED: Ketorolac 30 MG/ML VIAL IVP PRN (09:47)
[2021-11-26] MEDS ORDERED: Famotidine 20 MG/2 ML VIAL IVP ONE (09:47)
[2021-11-26] MEDS ORDERED: Ondansetron 4 MG/2 ML VIAL IVP PRN ×3 (09:47→18:22)
[2021-11-26] MEDS ORDERED: *HR* Labetalol 20 MG/4 ML SYRINGE IVP PRN ×3 (09:47→18:22)
[2021-11-26] MEDS ORDERED: Acetaminophen IV 1,000 MG/100 ML BAG IVPB ONE (09:47)
[2021-11-26] MEDS ORDERED: *HR* HYDROmorphone 2 MG TABLET PO PRN (09:47)
[2021-11-26] MEDS ORDERED: *HR* HYDROmorphone PF 0.5 MG/0.5 ML SYRINGE IVP PRN (09:47)
[2021-11-26] MEDS ORDERED: Vancomycin 1,250 MG/262.5 ML IV.SOLN IVPB ONE ×2 (10:19→22:45)
[2021-11-26] MEDS ORDERED: Ipratropium/Albuterol Neb 3 ML IH ONE (10:24)
[2021-11-26] MEDS ORDERED: Bupivacaine-MPF 0.25% 10 ML VIAL ONE (10:43)
[2021-11-26] MEDS ORDERED: Protamine Sulfate 50 MG/5 ML VIAL IVP ONE (10:44)
[2021-11-26] MEDS ORDERED: Heparin 1,000 UNITS/500 mL 1,500 ML ONE (10:44)
[2021-11-26] MEDS ORDERED: *HR* FentaNYL (PF) 100 MCG/2 ML VIAL ONE ×2 (11:00→12:32)
[2021-11-26] MEDS ORDERED: Heparin 1,000 UNITS/500 mL 500 ML ONE (11:00)
[2021-11-26] MEDS ORDERED: Vancomycin 1,000 MG, Sodium Chloride IRRigation 1,000 ML IR ONE (11:00)
[2021-11-26] MEDS ORDERED: *HR* Midazolam HCl 2 MG/2 ML VIAL ONE (11:00)
[2021-11-26] MEDS ORDERED: Ringers Solution, Lactated 500 ML ONE (12:43)
[2021-11-26] MEDS ORDERED: *HR* HYDROMORPHONE 2 MG/ML VIAL ONE (13:33)
[2021-11-26] MEDS ORDERED: Sugammadex Sodium 200 MG/2 ML VIAL IV ONE (13:44)
[2021-11-26] MEDS ORDERED: Acetaminophen 325 MG TABLET PO PRN ×2 (13:58→18:22)
[2021-11-26] MEDS ORDERED: Naloxone 0.4 MG/ML INJ IVP PRN ×2 (13:58→18:22)
[2021-11-26] MEDS ORDERED: *HR* HYDROcodone/Acet 5/325 mg TABLET PO PRN ×2 (13:58→18:22)
[2021-11-26] MEDS ORDERED: 0.9 % Sodium Chloride 1,000 ML IVC SCH ×2 (14:00→18:22)
[2021-11-26] MEDS ORDERED: *HR* Metoprolol 5 MG/5 ML VIAL IVP SCH (18:00)
[2021-11-26] MEDS ORDERED: Nitroglycerin 0.4 MG TAB.SUBL SL PRN (18:22)
[2021-11-26] MEDS: *HR* Metoprolol 5 MG/5 ML VIAL IVP SCH (19:54)
[2021-11-26] MEDS ORDERED: CeFAZolin 2 GM/120 ML BAG IVPB SCH (20:00)
[2021-11-26] MEDS: Nicotine 21 MG PATCH.TD24 TD SCH (20:05)
[2021-11-26] MEDS: CeFAZolin 2 GM/120 ML BAG IVPB SCH (20:05)
[2021-11-26] MEDS: Loratadine 10 MG TABLET PO SCH (20:06)
[2021-11-27] MEDS ORDERED: Vancomycin 1,250 MG/262.5 ML IV.SOLN IVPB ONE
[2021-11-27] MEDS: *HR* Metoprolol 5 MG/5 ML VIAL IVP SCH (02:03)
[2021-11-27 03:09] LABS: Basophils % 0.3 %; Eosinophils % 0.1 %; Hematocrit 41.8 % (37.5-50.1); Hemoglobin 14.3 g/dL (12.9-16.9); Immature Granulocytes % 0.4 % (0-4); Lymphocytes # 1.5 K/mcL (0.6-4.6); Lymphocytes % 13.8 %; Mean Corpuscular HGB Conc 34.2 g/dL (31.6-35.5); Mean Corpuscular Hemoglobin 33.8 pg (28.0-33.3); Mean Corpuscular Volume 98.8 fL (83.0-100.0); Mean Platelet Volume 10.2 fL (9.4-12.4); Monocytes # 0.9 K/mcL (0.0-1.3); Neutrophils # 8.6 K/mcL (1.6-8.9); Platelet Count 158 K/mcL (140-400); Red Blood Count 4.23 M/mcL (4.19-5.50); Red Cell Distribution Width 12.9 % (11.5-14.5); Segmented Neutrophils % 77.4 %; White Blood Count 11.1 K/mcL (4.3-11.1)
[2021-11-27 03:20] LABS: BUN/Creatinine Ratio 12 (6-26); Blood Urea Nitrogen 11 mg/dL (8-23); Calcium 8.7 mg/dL (8.6-10.3); Carbon Dioxide 25 mEq/L (23-29); Chloride 105 mEq/L (98-107); Glucose 130 mg/dL (70-105); Osmolality,Calculated 283 (280-300); Potassium 4.1 mEq/L (3.5-5.1); Sodium 136 mEq/L (136-145); eGFR For African Americans > 60 (> 60); eGFR For Non-African Americans > 60 (> 60)
[2021-11-27] MEDS: CeFAZolin 2 GM/120 ML BAG IVPB SCH (05:13)
[2021-11-27] MEDS ORDERED: *HR* Heparin 5,000 UNIT/ML VIAL SQ SCH ×2 (06:00)
[2021-11-27 06:52] VITALS: BP 161/86; TEMP 97.5; O2SAT 95
[2021-11-27] MEDS: Nicotine 21 MG PATCH.TD24 TD SCH (07:53)
[2021-11-27] MEDS: Loratadine 10 MG TABLET PO SCH (07:54)
[2021-11-27] MEDS ORDERED: Isosorbide MONOnitrate (24 HR) 30 MG TAB.ER.24H PO SCH (09:00)
[2021-11-27] MEDS ORDERED: Aspirin Enteric Coated 81 MG Tablet PO SCH (09:00)
[2021-11-27 10:55] VITALS: PULSE 52
== END 2021-11-27 12:05 | disposition home or self-care (01) | DRG 254 ==
LOC: SAMDAY 09:23 → 3BNU 14:19 → 2NNU 17:47
PROVIDERS: ADMIT Surgery; ATTEND Surgery